=== PATIENT | female | born 1940 | race Caucasian/White ===

== ENCOUNTER → 2017-02-27 | Outpatient (CLI) | payer MEDICARE, OTHER ==
[~2017-02-27] MED LIST: CHOL200035 PO; Diovan PO; IBAN150T5 PO; LATA2.5D5 OU; MELO-195 PO; NORE1TAB PO; OMEP20TA2 PO; Omeprazole; TRM50T PO; VLS80C PO
--- NOTE | 2017-02-27 10:54 | Diagnostic Imaging Report ---
Transabdominal and transvaginal pelvic ultrasound. INDICATION: Vaginal discharge for three weeks. Abnormal uterine bleeding. FINDINGS: The uterus is 4.4 x 3.7 x 2.4 cm. The myometrium is heterogeneous with no discrete mass identified however. Uterine calcifications with shadowing are suggested which could be vascular or related to calcified fibroids. The endometrium is obscured by the uterine heterogeneity and the shadowing. Ovaries are not seen, presumably related to overlying bowel loops obscuring them and ovarian atrophy. IMPRESSION: Heterogeneous myometrium with calcifications which could be vascular or related to underlying poorly visualized fibroids. The endometrium is obscured. Dictated by: Dictated on workstation # [id number]
--- NOTE | 2017-03-02 14:44 | Diagnostic Imaging Report ---
Bilateral screening mammogram 2D views with tomosynthesis The current study was also evaluated with a Computer Aided Detection (CAD) system. INDICATION: Screening. No current complaints stated on the questionnaire. COMPARISON: 01/03/2016. FINDINGS: The breasts are composed of heterogeneously dense parenchyma which may decrease mammographic sensitivity. Benign-appearing calcifications are seen. Allowing for technique and positional differences, no suspicious change is seen. IMPRESSION: Dense breasts with no definite change. ACR BI-RADS Category 2: Benign findings. Result letter will be mailed to the patient. Note: At least 10% of breast cancer is not imaged by mammography. Dictated by: Dictated on workstation # [id number]
== END ==
LOC: RAD 09:56
PROVIDERS: ATTEND Family Medicine
DX: N85.8 Other specified noninflammatory disorders of uterus (principal); Z12.31 Encounter for screening mammogram for malignant neoplasm of breast
CPT/HCPCS: 76830; 76856; 77067

== ENCOUNTER → 2017-04-15 | Outpatient (CLI) | payer MEDICARE, OTHER ==
--- NOTE | 2017-04-15 18:05 | Diagnostic Imaging Report ---
INDICATION: Renal stones. FINDINGS: Supine view of the abdomen shows the bowel gas pattern to be within normal limits. There is a 3 mm calculus in the left kidney. No other stones are identified. There is no bony abnormality. IMPRESSION: There is a 3 mm calculus in the left kidney with no acute abnormality seen. There is no significant change from a prior study from 04/15/2016. Dictated by: Dictated on workstation # [id number]
== END ==
LOC: RAD 16:09
PROVIDERS: ATTEND Urology
DX: N20.0 Calculus of kidney (principal)
CPT/HCPCS: 74000

== ENCOUNTER → 2017-09-21 | Outpatient (CLI) | payer MEDICARE, OTHER ==
--- NOTE | 2017-09-21 13:25 | Diagnostic Imaging Report ---
PROCEDURE: CT head without contrast. TECHNIQUE: Multiple contiguous axial images were obtained through the brain without the use of intravenous contrast. INDICATION: Cephalgia and visual disturbances. The ventricles are normal in size, shape and position. There are no masses or hemorrhages. There are no extra-axial fluid collections. IMPRESSION: Negative CT head. Dictated by: Dictated on workstation # [id number]
== END ==
LOC: RAD 12:29
PROVIDERS: ATTEND Family Medicine
DX: R51 Headache (principal); H53.9 Unspecified visual disturbance
CPT/HCPCS: 70450

== ENCOUNTER → 2018-03-03 | Outpatient (CLI) | payer MEDICARE, OTHER ==
--- NOTE | 2018-03-03 09:06 | Diagnostic Imaging Report ---
Indication: Routine screening. Comparison is made with prior mammogram from 02/27/2017 and 01/03/2016. 2-D and 3-D bilateral screening mammography was performed with CAD. Both breasts are heterogeneously dense, limiting the sensitivity of mammography. Benign consultations in the left breast appear stable. No mass or malignant appearing microcalcifications are seen. The axillae are unremarkable. Impression: BI-RADS category 2 No mammographic features suspicious for malignancy are identified. ACR BI-RADS Category 2: Benign findings. Result letter will be mailed to the patient. Note: At least 10% of breast cancer is not imaged by mammography. Dictated by: Dictated on workstation # [id number]
== END ==
LOC: RAD 07:21
PROVIDERS: ATTEND Family Medicine
DX: Z12.31 Encounter for screening mammogram for malignant neoplasm of breast (principal)
CPT/HCPCS: 77067

== ENCOUNTER → 2018-06-09 | Outpatient (CLI) | payer MEDICARE, OTHER ==
--- NOTE | 2018-06-09 14:40 | Diagnostic Imaging Report ---
PROCEDURE: US Non-ob pelvis comp/trans. TECHNIQUE: Multiple realtime grayscale images were obtained of the pelvis in various projections endovaginally. Transabdominal imaging was also performed. INDICATION: Enlarged uterus. FINDINGS: Uterus measures 5.7 x 3.4 x 3.0 cm. There appears to be calcified fibroids present in the uterus, largest approximately 1.6 x 1.3 cm. The endometrium is not well visualized. Ovaries were not visualized. There is a large amount of bowel gas in the adnexa bilaterally. No free fluid is seen. IMPRESSION: Calcified uterine fibroids. No other significant abnormality is seen although the endometrium and ovaries are not well visualized. Dictated by: Dictated on workstation # [id number]
== END ==
LOC: RAD 10:41
PROVIDERS: ATTEND Obstetrics & Gynecology
DX: D25.9 Leiomyoma of uterus, unspecified (principal); N81.11 Cystocele, midline
CPT/HCPCS: 76830; 76856

== ENCOUNTER 2018-08-31 09:50 | Outpatient (CLI) | payer MEDICARE, OTHER ==
[~2018-08-31] VITALS: Ht 162.6 cm; Wt 63.0 kg
[2018-08-31] MEDS ORDERED: LOSA100T8 PO (10:11)
[2018-08-31] MEDS ORDERED: ASPI-586 PO (10:11)
[2018-08-31] MEDS ORDERED: OMEP20CA12 PO (10:11)
[2018-08-31] MEDS ORDERED: IBAN150T8 PO (10:11)
[2018-08-31] MEDS ORDERED: CHOL500044 PO (10:11)
[2018-08-31] MEDS ORDERED: ATOR10TA66 PO (10:11)
[2018-08-31 10:14] VITALS: BP 120/76
[2018-08-31 10:53] LABS: BASOPHILS % (AUTO) 0 % (0-10); EOSINOPHILS # (AUTO) 0.1 10^3/uL (0.0-0.3); EOSINOPHILS % (AUTO) 2 % (0-10); HEMATOCRIT 40 % (35-52); HEMOGLOBIN 12.8 G/DL (11.5-16.0); LYMPHOCYTES # (AUTO) 1.7 X 10^3 (1.0-4.0); LYMPHOCYTES % (AUTO) 29 % (12-44); MEAN CORPUSCULAR HEMOGLOBIN 31 PG (25-34); MEAN CORPUSCULAR HGB CONC 32 G/DL (32-36); MEAN CORPUSCULAR VOLUME 94 FL (80-99); MEAN PLATELET VOLUME 10.1 FL (7.4-10.4); MONOCYTES # (AUTO) 0.5 X 10^3 (0.0-1.0); MONOCYTES % (AUTO) 9 % (0-12); NEUTROPHILS # (AUTO) 3.4 X 10^3 (1.8-7.8); NEUTROPHILS % (AUTO) 60 % (42-75); PLATELET COUNT 280 10^3/uL (130-400); RED CELL DISTRIBUTION WIDTH 14.7 % (10.0-14.5); WHITE BLOOD COUNT 5.7 10^3/uL (4.3-11.0)
== END 2018-08-31 14:37 | disposition home or self-care (01) ==
LOC: PREOP 09:50
PROVIDERS: ATTEND Obstetrics & Gynecology
DX: Z01.812 Encounter for preprocedural laboratory examination (principal); Z11.2 Encounter for screening for other bacterial diseases; N81.10 Cystocele, unspecified; N39.3 Stress incontinence (female) (male)
CPT/HCPCS: 36415; 85025; 86850; 86900; 86901; 87081

== ENCOUNTER → 2019-06-16 | Outpatient (CLI) | payer MEDICARE, OTHER ==
[~2019-06-16] MED LIST changes: +ASPI-586 PO; +ATOR10TA66 PO; +CHOL500044 PO; +IBAN150T8 PO; +LOSA100T57 PO; +OMEP20CA13 PO
--- NOTE | 2019-06-16 09:08 | Diagnostic Imaging Report ---
INDICATION: Routine screening. Comparison is made with prior mammogram from 03/03/2018 and 02/27/2017. 2-D and 3-D bilateral screening mammography was performed with CAD. Both breasts are heterogeneously dense, limiting the sensitivity of mammography. Benign calcifications are again noted. Parenchymal pattern is stable. No mass or malignant appearing microcalcifications are seen. The axillae are unremarkable. IMPRESSION: BI-RADS Category 2 No mammographic features suspicious for malignancy are identified. ACR BI-RADS Category 2: Benign findings. Result letter will be mailed to the patient. Note: At least 10% of breast cancer is not imaged by mammography. Dictated by: Dictated on workstation # [id number]
== END ==
LOC: RAD 07:27
PROVIDERS: ATTEND Family Medicine
DX: Z12.31 Encounter for screening mammogram for malignant neoplasm of breast (principal)
CPT/HCPCS: 77067

== ENCOUNTER 2019-09-12 05:35 | Outpatient (CLI) | payer MEDICARE, OTHER ==
[~2019-09-12] VITALS: Ht 160 cm; Wt 61.8 kg
[~2019-09-12 05:35] MED LIST changes: +IBAN150T21 PO; -IBAN150T8 PO; +OMEP-280 PO; -OMEP20CA13 PO
[2019-09-12] MEDS ORDERED: CHOL200059 PO (10:28)
== END 2019-09-12 10:40 | disposition home or self-care (01) ==
LOC: PREOP 05:35
PROVIDERS: ATTEND Surgery
DX: Z01.818 Encounter for other preprocedural examination (principal)

== ENCOUNTER → 2019-09-30 | Outpatient (CLI) | payer MEDICARE, OTHER ==
[~2019-09-30] MED LIST changes: +CHOL200059 PO
== END ==
LOC: CARD 11:30
PROVIDERS: ATTEND Internal Medicine Cardiovascular Disease
DX: I10 Essential (primary) hypertension (principal); R07.9 Chest pain, unspecified; I65.29 Occlusion and stenosis of unspecified carotid artery; I08.2 Rheumatic disorders of both aortic and tricuspid valves
CPT/HCPCS: 93306

== ENCOUNTER → 2019-10-25 | Outpatient (CLI) | payer MEDICARE, OTHER ==
[~2019-10-25] MED LIST changes: -OMEP-280 PO; +OMEP20CA18 PO
--- NOTE | 2019-10-25 14:31 | Diagnostic Imaging Report ---
PROCEDURE: US Thyroid. TECHNIQUE: Multiple real-time grayscale images were obtained of the thyroid in various projections. INDICATION: Dysphasia and lump in the neck. Right lobe of thyroid measures 3.6 x 1.1 x 0.8 cm, and the left lobe measures 4.0 x 1.4 x 0.8 cm. Isthmus is 3 mm in thickness. There are several tiny nodules in both lobes of the thyroid gland. A cystic nodule in the inferior right lobe is approximately 4 mm in size. A cystic nodule mid left lobe is 3 mm in size. A mixed solid and cystic nodule lower pole left lobe is approximately 6 mm in size. No dominant thyroid mass is detected. No abnormality is seen at the area where the patient feels a lump. IMPRESSION: Bilateral subcentimeter thyroid nodules. No dominant thyroid mass is detected. No sonographic abnormality at the area of palpable abnormality is identified. Dictated by: Dictated on workstation # [id number]
== END ==
LOC: RAD 12:57
PROVIDERS: ATTEND Family Medicine
DX: E04.2 Nontoxic multinodular goiter (principal); R22.1 Localized swelling, mass and lump, neck
CPT/HCPCS: 76536

== ENCOUNTER 2019-11-03 05:31 | Outpatient (CLI) | payer MEDICARE, OTHER ==
[~2019-11-03] VITALS: Ht 162.6 cm; Wt 59.1 kg
[2019-11-04] MEDS ORDERED: PANT40TA2 PO (11:59)
== END 2019-11-03 08:44 | disposition home or self-care (01) ==
LOC: PREOP 05:31
PROVIDERS: ATTEND Surgery
DX: Z01.818 Encounter for other preprocedural examination (principal)

== ENCOUNTER 2020-12-11 | Outpatient (RCR) | payer MEDICARE, OTHER ==
[~2020-12-11] MED LIST changes: +PANT40TA2 PO
--- NOTE | 2020-12-11 12:28 | Diagnostic Imaging Report ---
Indication: Routine screening. Comparison is made with prior mammogram 06/16/2019 and 03/03/2018. 2-D and 3-D bilateral screening mammography was performed with CAD. Both breasts are heterogeneously dense, limiting the sensitivity of mammography. Benign parenchymal and vascular calcifications are noted bilaterally. No mass or malignant appearing microcalcifications are seen. Axillae are unremarkable. IMPRESSION: BI-RADS Category 2 No mammographic features suspicious for malignancy are identified. ACR BI-RADS Category 2: Benign findings. Result letter will be mailed to the patient. Note: At least 10% of breast cancer is not imaged by mammography. Dictated by: Dictated on workstation # [id number]
== END 2021-03-11 | disposition home or self-care (01) ==
LOC: CARD
PROVIDERS: ATTEND Family Medicine
DX: Z12.31 Encounter for screening mammogram for malignant neoplasm of breast (principal); R00.2 Palpitations; R42 Dizziness and giddiness
CPT/HCPCS: 77063; 77067

== ENCOUNTER → 2021-05-29 | Outpatient (CLI) | payer MEDICARE, OTHER ==
[~2021-05-29] VITALS: Ht 162 cm; Wt 57.0 kg
[~2021-05-29] MED LIST changes: +REGADENOSON 0.4 MG/5 ML SYR (LEXISCAN) IV ONE
[2021-05-29] MEDS: CATHETER FLUSH 10 ML SYR IV PRN ×2 (11:13→12:49)
[2021-05-29 12:46] VITALS: BP 117/72
--- NOTE | 2021-05-30 08:12 | Cardiology Stress Test Report ---
Stress Test Report Date of Procedure/Referring: Date of Procedure: May 29, 2021 PCP Tara Gross DO Admitting Physician Tara Gross DO Indications: CP Baseline Heart Rate: 64 Baseline Blood Pressure: Blood Pressure Systolic: 117 Blood Pressure Diastolic: 72 Baseline Vitals Vital Signs Date Time Temp Pulse Resp B/P (MAP) Pulse Ox O2 Delivery O2 Flow Rate FiO2 05/29/21 12:46 65 117/72 (87) Baseline EKG: Baseline EKG: NSR Summary After explaining the procedure to the patient, she signed a consent and then brought to the stress nuclear laboratory. Patient received 0.4 mg Lexiscan for stress test, ECG, heart rate and blood pressure were monitored continuously. Resting and stress dose of radio tracer were injected, imaging was acquired and reviewed in short axis, horizontal long axis and vertical long axis views. TID: 1.14 SSS: 2 SDS: 2 EF: 74 1. Patient tolerated Lexiscan well 2. Breast attenuation with no significant ischemia or infarction on SPECT images 3. Normal left ventricular size, normal contractility, ejection fraction 74% Copy Copies To 1: TARA GROSS BASHAR J MD May 30, 2021 08:12
== END ==
LOC: CARD 11:30
PROVIDERS: ATTEND Family Medicine
DX: R07.9 Chest pain, unspecified (principal)
CPT/HCPCS: 78452; 93017; A9502

== ENCOUNTER 2021-07-08 05:44 | Outpatient (RCR) | payer MEDICARE, OTHER ==
[~2021-07-08] VITALS: Ht 162.6 cm; Wt 57.8 kg
[~2021-07-08 05:44] MED LIST changes: +CYAN100081 PO; +MTP25TSR PO; -REGADENOSON 0.4 MG/5 ML SYR (LEXISCAN) IV ONE
== END 2021-07-08 08:56 | disposition home or self-care (01) ==
LOC: PREOP 05:44
PROVIDERS: ATTEND Surgery
DX: Z01.812 Encounter for preprocedural laboratory examination (principal); R13.10 Dysphagia, unspecified; Z20.822 Contact with and (suspected) exposure to COVID-19
CPT/HCPCS: 87635

== ENCOUNTER → 2021-07-10 | Day surgery (SDC) | payer MEDICARE, OTHER ==
[2021-07-10] VITALS (14 sets, daily range): BP systolic 131–158; BP diastolic 59–83
[~2021-07-10] VITALS: Ht 162.6 cm; Wt 57.8 kg
[~2021-07-10] MED LIST changes: +HURRICAINE EXT TUBE (BENZOCAINE) XX PRN; +LIDOCAINE JELLY 2% 6 ML SYRINGE MM PRN; +MIDAZOLAM 5 MG/5 ML (VERSED) VIAL IV ONE; +NS IV 500 ML 500 ML IV PRN; +NS IV 500 ML 500 ML ONE; +ONDANSETRON 4 MG (ZOFRAN) ORAL DISSOLVE TAB PO PRN; +ONDANSETRON 4 MG/2 ML (SDV) Z0FRAN IVP PRN; +fentaNYL INJ 100 MCG/2 ML AMP IVP ONE
--- NOTE | 2021-07-10 11:45 | Conscious Sedation/ASA ---
Conscious Sedation Pre-Proced Time 11:45 ASA Score 2 For ASA 3 and 4: Consider anesthesia and medical clearance. Also, for patients with a history of failed moderate sedation consider anesthesia. Airway Lungs Heart ASA score ASA 1: a normal healthy patient ASA 2: a patient with a mild systemic disease (mid diabetes, controlled hypertension, obesity ASA 3: a patient with a severe systemic disease that limits activity (angina, COPD, prior Myocardial infarction) ASA 4: a patient with an incapacitating disease that is a constant threat to life (CHF, renal failure) ASA 5: a moribund patient not expected to survive 24 hrs. (ruptured aneurysm) ASA 6: a declared brain- patient whose organs are being harvested. For emergent operations, add the letter E after the classification Mallampati Classification Grade 2 Sedation Plan Analgesia, Amnesia, Plan communicated to team members, Discussed options with patient/fam, Discussed risks with patient/fam The patient is an appropriate candidate to undergo the planned procedure, sedation, and anesthesia. The patient immediately re-assessed prior to indication. KRIS CAMPOS MD Jul 10, 2021 11:45
--- NOTE | 2021-07-10 11:46 | Progress Note-Pre Operative ---
Pre-Operative Progress Note H&P Reviewed The H&P was reviewed, patient examined and no changes noted. Date Seen by Provider: Jul 10, 2021 Time Seen by Provider: 11:45 Date H&P Reviewed: Jul 10, 2021 Time H&P Reviewed: 11:45 Pre-Operative Diagnosis: dysphagia/GERD KRIS CAMPOS MD Jul 10, 2021 11:46
--- NOTE | 2021-07-10 11:47 | Discharge Inst-Surgical ---
D/C Lap Instructions-ANDRES Follow Up Activity as tolerated High Fiber Diet 25g or more per day Avoid Alcohol, Caffeine, Spicy [place] and Acid foods. Drink 64 fluid oz or more of fluids per day. Symptoms to Report: Fever over 101 degree F, Nausea/Vomiting If any problems/questions: Contact your physician or go to Emergency Room KRIS CAMPOS MD Jul 10, 2021 11:47
--- NOTE | 2021-07-10 14:26 | Progress Note-Post Operative ---
Post-Operative Progess Note Surgeon (s)/Senior Front End Engineer (s) Surgeon KRIS CAMPOS MD Senior Front End Engineer: none Pre-Operative Diagnosis dysphagia/GERD Post-Operative Diagnosis reflux esophagitis(stage 2), dist esoph stricture, small HH(2cm), mild gastritis. Procedure & Operative Findings Date of Procedure 07/10/21 Procedure Performed/Findings EGD with bx and balloon dilatation. Anesthesia Type cs Estimated Blood Loss Estimated blood loss (mL): minimal Specimens/Packing Specimens Removed ge jxn, antrum KRIS CAMPOS MD Jul 10, 2021 14:26
--- NOTE | 2021-07-10 19:25 | OPERATIVE REPORT ---
DATE OF SERVICE: 07/10/2021 ATTENDING PRIMARY CARE PHYSICIAN: Tara Gross DO PREOPERATIVE DIAGNOSES: Dysphagia, gastroesophageal reflux disease. POSTOPERATIVE DIAGNOSES: Reflux esophagitis stage II, distal esophageal stricture, small hiatal hernia 2 cm in size. Mild to moderate gastritis. No distal obstructions. PROCEDURE: EGD with biopsy and balloon dilatation. SURGEON: Kris Campos MD ANESTHESIA: Conscious sedation. ESTIMATED BLOOD LOSS: Minimal. FINDINGS: Same as postoperative diagnoses. DISPOSITION: The patient tolerated the procedure well. INDICATIONS: The patient is a 80-year-old female known to us. Approximately two years ago, she presented with significant dysphagia and she underwent an EGD and was found to have a stricture and underwent a balloon dilatation. At this time, it was explained to her that she may need repeat dilatation; however, she states that COVID occurred. She reports a recurrence of dysphagia with epigastric pressure sensation after food bolus, which would eventually reduce or she would have regurgitation. She does not report any hematemesis, no coffee ground emesis. DESCRIPTION OF PROCEDURE: The patient was brought to the endoscopy suite, laid in left lateral decubitus position. After adequate IV pain and sedative medications and conscious sedation anesthesia, the mouthpiece was applied. The endoscope was placed in the mouth, visualizing the pharynx and hypopharyngeal region. Vocal cords, epiglottis and vallecula identified and appeared to be normal. The endoscope was then gently intubated into esophageal opening and esophagus insufflated. The endoscope was then advanced through the first, second and third portion of esophagus at the level of the GE junction, a reflux esophagitis stage II identified. A distal esophageal stricture was also identified. A biopsy was taken with forceps with visualization of good hemostasis. The endoscope was then advanced in the stomach and endoscope retroflexed, visualizing a small hiatal hernia approximately 2 cm in size. There was a mild to moderate gastritis. No formal ulcerations, polyps, or any neoplasms. A biopsy was taken of the antrum to rule out H. pylori with visualization of good hemostasis. The endoscope was then advanced to the pylorus and the first and second portion of the duodenum, which appeared normal with no distal obstructions. The balloon was then placed in the stomach and pulled back to the area of the stricture, then we proceeded in a gradual stepwise fashion from 2, 4 and then to 5 atmospheres of pressure where we met a moderate resistance or 19.5 mm in luminal diameter and left this in place for approximately 60 seconds. The balloon was then desufflated and removed with visualization of good hemostasis as well as no mucosal tears. The endoscope was then slowly withdrawn while taking a second look and suctioning of residual air with no additional findings. The patient tolerated the procedure well. We will recommend the necessary lifestyle and dietary accommodation including small and more frequent meals, avoiding to eating at night as well as head elevation while lying supine. She also needs to avoid caffeinated beverages, spicy, greasy and acidic foods and if she does have early reoccurrence of symptoms, we will have her return for continued graded dilatation. Job ID: [id number] DocumentID: [id number] Dictated Date: 07/10/2021 13:42:27 Director Payer Date: 07/10/2021 19:24:50 Dictated By: KRIS CAMPOS MD
== END ==
LOC: ENDO 11:39
PROVIDERS: ATTEND Surgery
DX: K22.2 Esophageal obstruction (principal); K21.00 Gastro-esophageal reflux disease with esophagitis, without bleeding; K44.9 Diaphragmatic hernia without obstruction or gangrene; K29.50 Unspecified chronic gastritis without bleeding; I10 Essential (primary) hypertension; E78.00 Pure hypercholesterolemia, unspecified; M81.0 Age-related osteoporosis without current pathological fracture; Z90.89 Acquired absence of other organs; Z79.899 Other long term (current) drug therapy; Z79.82 Long term (current) use of aspirin

== ENCOUNTER 2021-09-22 15:01 | Emergency (ER) | payer MEDICARE, OTHER ==
[~2021-09-22] VITALS: Ht 162 cm; Wt 55.0 kg
[~2021-09-22 15:01] MED LIST changes: -HURRICAINE EXT TUBE (BENZOCAINE) XX PRN; -LIDOCAINE JELLY 2% 6 ML SYRINGE MM PRN; -MIDAZOLAM 5 MG/5 ML (VERSED) VIAL IV ONE; -NS IV 500 ML 500 ML IV PRN; -NS IV 500 ML 500 ML ONE; -ONDANSETRON 4 MG (ZOFRAN) ORAL DISSOLVE TAB PO PRN; -ONDANSETRON 4 MG/2 ML (SDV) Z0FRAN IVP PRN; -fentaNYL INJ 100 MCG/2 ML AMP IVP ONE
[2021-09-22 15:23] LABS: BASOPHILS % (AUTO) 0 % (0-10); EOSINOPHILS # (AUTO) 0.1 10^3/uL (0.0-0.3); EOSINOPHILS % (AUTO) 0 % (0-10); HEMATOCRIT 40 % (35-52); HEMOGLOBIN 13.2 g/dL (11.5-16.0); LYMPHOCYTES # (AUTO) 1.5 10^3/uL (1.0-4.0); LYMPHOCYTES % (AUTO) 12 % (12-44); MEAN CORPUSCULAR HEMOGLOBIN 30 pg (25-34); MEAN CORPUSCULAR HGB CONC 33 g/dL (32-36); MEAN CORPUSCULAR VOLUME 93 fL (80-99); MEAN PLATELET VOLUME 9.6 fL (9.0-12.2); MONOCYTES # (AUTO) 0.6 10^3/uL (0.0-1.0); MONOCYTES % (AUTO) 5 % (0-12); NEUTROPHILS # (AUTO) 10.3 10^3/uL (1.8-7.8); NEUTROPHILS % (AUTO) 82 % (42-75); PLATELET COUNT 282 10^3/uL (130-400); WHITE BLOOD COUNT 12.6 10^3/uL (4.3-11.0)
[2021-09-22 15:31] LABS: ALBUMIN 4.1 GM/DL (3.2-4.5); POTASSIUM 3.9 MMOL/L (3.6-5.0)
[2021-09-22 15:32] LABS: CALCIUM 9.8 MG/DL (8.5-10.1)
[2021-09-22 15:33] LABS: TOTAL PROTEIN 6.7 GM/DL (6.4-8.2)
[2021-09-22 15:35] LABS: BILIRUBIN,TOTAL 1.8 MG/DL (0.1-1.0)
[2021-09-22 15:37] LABS: CREATININE SERUM 0.96 MG/DL (0.60-1.30)
[2021-09-22] MEDS ORDERED: FLEET ENEMA ADULT 1 EA BTL PR ONE (15:45)
--- NOTE | 2021-09-22 15:47 | ED GI ---
General Chief Complaint: Abdominal/GI Problems Stated Complaint: NO BM IN 1 WEEK Nursing Triage Note: PT CO OF CONSTIPATION AND ABD PAIN. PT STATES NO BM FOR 1 WEEK. DENIES FEVER OR NAUSEA Source of Information: Patient Exam Limitations: No Limitations History of Present Illness Date Seen by Provider: Sep 22, 2021 Time Seen by Provider: 15:45 Initial Comments to ER with lower abdominal cramping, rectal pain and absent bowel movements for about 5 days. This is unusual for her. No fevers no chills no nausea or vomiting. Tried some Metamucil at home without relief. Has not yet used anything else. Timing/Duration: 1-2 Days Severity/Quality: Cramping Radiation: No Radiation Activities at Onset: None Associated Symptoms: Nausea/Vomiting Allergies and Home Medications Allergies Coded Allergies: Cephalexin Monohydrate (Verified Allergy, Mild, GI UPSET/LOOSE STOOLS, 08/31/18) Patient Home Medication List Home Medication List Reviewed: Yes Aspirin (Aspir 81) 81 Mg Tablet., 81 MG PO DAILY, (Reported) Entered as Reported by: BOLIVAR JC on 08/31/18 1011 Atorvastatin Calcium (Atorvastatin Calcium) 10 Mg Tablet, 10 MG PO HS, (Reported) Entered as Reported by: BOLIVAR JC on 08/31/18 1011 Cholecalciferol (Vitamin D3) (Vitamin D-3) 2,000 Unit Tablet, 2,000 UNIT PO DAILY, (Reported) Entered as Reported by: MELIDA BROWN on 09/12/19 1028 Cyanocobalamin (Vitamin B-12) (Vitamin B-12) 1,000 Mcg/1 Ml Drops, 1,000 MCG PO MONTHLY, (Reported) Entered as Reported by: CAYLA WALLS on 07/03/21 1550 Ibandronate Sodium (Ibandronate Sodium) 150 Mg Tablet, 150 MG PO MONTHLY, (Reported) Entered as Reported by: BOLIVAR JC on 08/31/18 1011 Metoprolol Succinate (Metoprolol Succinate) 25 Mg Tab.er.24h, 25 MG PO DAILY, (Reported) Entered as Reported by: CAYLA WALLS on 07/03/21 1550 Pantoprazole Sodium (Protonix) 40 Mg Tablet., 40 MG PO DAILY Prescribed by: KRIS CAMPOS on 11/04/19 1159 Review of Systems Review of Systems Constitutional: see HPI EENTM: No Symptoms Reported Respiratory: No Symptoms Reported Cardiovascular: No Symptoms Reported Gastrointestinal: See HPI, Abdominal Pain, Nausea Genitourinary: No Symptoms Reported Musculoskeletal: no symptoms reported Skin: no symptoms reported, change in hair/nails Endocrine: No Symptoms Reported Past Mpawxqo-Rynkze-Rhzdsd Hx Patient Social History Tobacco Use?: No Substance use?: No Alcohol Use?: No Pt feels they are or have been: No Immunizations Up To Date Influenza Vaccine Up-to-Date: Yes; Up-to-Date First/Initial COVID19 Vaccinat: 2020 Second COVID19 Vaccination Wu: 2020 Third COVID19 Vaccination Date: 06/18/2021 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: Xyo Seasonal Allergies Seasonal Allergies: No Past Medical History Surgery/Hospitalization HX: HTN Surgeries: Yes (kidney stones, tonsils, CATARACT BILAT) Respiratory: No Cardiac: Yes High Cholesterol, Hypertension Neurological: No Reproductive Disorders: No Sexually Transmitted Disease: No HIV/AIDS: No Genitourinary: Yes (ALESSIA, "DROPPED BLADDER") Kidney Stones Gastrointestinal: Yes (dysphagia) Gastroesophageal Reflux, Chronic Constipation, Polyps Musculoskeletal: Yes (OSTEOPENIA) Endocrine: No HEENT: Yes (READING GLASSES) Loss of Vision: Bilateral Cancer: No Psychosocial: No Integumentary: No Blood Disorders: No Adverse Reaction/Blood Tranf: No (N/A) Physical Exam Vital Signs Vital Signs - First Documented 09/22/21 15:10 Temp 36.7 Pulse 81 Resp 18 B/P (MAP) 157/79 (105) Pulse Ox 96 Capillary Refill : Less Than 3 Seconds Height/Weight/BMI Height: 5'4.00" Weight: 139lbs. 0.0oz. 63.225229mv; 20.00 BMI Method:Stated General Appearance: WD/WN, no apparent distress HEENT: PERRL/EOMI, normal ENT inspection Respiratory: no respiratory distress, no accessory muscle use Gastrointestinal: normal bowel sounds, non tender, soft, other (Her abdomen is flat soft and nontender to palpation with normal bowel sounds. Specifically there is no left lower or suprapubic tenderness to concern me for diverticulitis. There are no peritoneal signs.) Extremities: normal range of motion, non-tender Neurologic/Psychiatric: alert, normal mood/affect, oriented x 3 Skin: normal color, warm/dry Progress/Results/Core Measures Results/Orders Lab Results Laboratory Tests Test 09/22/21 15:15 Range/Units White Blood Count 12.6 H 4.3-11.0 10^3/uL Red Blood Count 4.34 3.80-5.11 10^6/uL Hemoglobin 13.2 11.5-16.0 g/dL Hematocrit 40 35-52 % Mean Corpuscular Volume 93 80-99 fL Mean Corpuscular Hemoglobin 30 25-34 pg Mean Corpuscular Hemoglobin Concent 33 32-36 g/dL Red Cell Distribution Width 14.0 10.0-14.5 % Platelet Count 282 130-400 10^3/uL Mean Platelet Volume 9.6 9.0-12.2 fL Immature Granulocyte % (Auto) 0 % Neutrophils (%) (Auto) 82 H 42-75 % Lymphocytes (%) (Auto) 12 12-44 % Monocytes (%) (Auto) 5 0-12 % Eosinophils (%) (Auto) 0 0-10 % Basophils (%) (Auto) 0 0-10 % Neutrophils # (Auto) 10.3 H 1.8-7.8 10^3/uL Lymphocytes # (Auto) 1.5 1.0-4.0 10^3/uL Monocytes # (Auto) 0.6 0.0-1.0 10^3/uL Eosinophils # (Auto) 0.1 0.0-0.3 10^3/uL Basophils # (Auto) 0.0 0.0-0.1 10^3/uL Immature Granulocyte # (Auto) 0.1 0.0-0.1 10^3/uL Sodium Level 139 135-145 MMOL/L Potassium Level 3.9 3.6-5.0 MMOL/L Chloride Level 106 98-107 MMOL/L Carbon Dioxide Level 23 21-32 MMOL/L Anion Gap 10 5-14 MMOL/L Blood Urea Nitrogen 10 7-18 MG/DL Creatinine 0.96 0.60-1.30 MG/DL Estimat Glomerular Filtration Rate 60 BUN/Creatinine Ratio 10 Glucose Level 128 H 70-105 MG/DL Calcium Level 9.8 8.5-10.1 MG/DL Corrected Calcium 9.7 8.5-10.1 MG/DL Total Bilirubin 1.8 H 0.1-1.0 MG/DL Aspartate Amino Transf (AST/SGOT) 16 5-34 U/L Alanine Aminotransferase (ALT/SGPT) 18 0-55 U/L Alkaline Phosphatase 63 40-136 U/L Total Protein 6.7 6.4-8.2 GM/DL Albumin 4.1 3.2-4.5 GM/DL My Orders Orders - ROXI KITCHEN APRN Cbc With Automated Diff (09/22/21 15:19) Comprehensive Metabolic Panel (09/22/21 15:19) Acute Abd Series (09/22/21 15:19) Na Phos/Na Biphos Enema (Fleet Enema Javier (09/22/21 15:45) Medications Given in ED Current Medications Medications Dose Ordered Sig/Kris Route Start Time Stop Time Status Last Admin Dose Admin Sodium Biphosphate/ Sodium Phosphate 1 ea ONCE ONCE [place] 09/22/21 15:45 09/22/21 15:46 DC 09/22/21 15:56 1 EA Vital Signs/I&O 09/22/21 15:10 Temp 36.7 Pulse 81 Resp 18 B/P (MAP) 157/79 (105) Pulse Ox 96 Blood Pressure Mean: 105 Departure Communication (Admissions) 1601-upon reviewing labs did a digital rectal exam. at the bedside. There is a fecal impaction of which a large amount was removed digitally. She was then given a fleets enema. NAME: BARTOLO GROSS [facility] REC#: [id number] PT STATUS: REG ER : 1940 PHYSICIAN: ROXI KITCHEN APRN ADMIT DATE: 09/22/21/ER Draft Date of Exam:09/22/21 ACUTE ABD SERIES EXAMINATION: Abdominal radiographs, acute series. DATE: September 22, 2021. CLINICAL INDICATION: 81-year-old female, constipation. Abdominal pain. No bowel movement for one week COMPARISON: April 15, 2017. COMMENTS: Heart size and mediastinal contours are unremarkable. There is no identified pneumothorax. There is no large pleural effusion. There is no identified focal airspace consolidation. There is no identified free intraperitoneal air. There is a large volume colonic stool. There are no abnormally distended gas-filled segments of bowel. There is no identified pneumatosis or portal venous gas. IMPRESSION: 1. Large volume colonic stool. 2. No evidence to suggest bowel obstruction. 3. No identified acute cardiopulmonary abnormality. Dictated on workstation # [id number] Dict: 09/22/21 1541 Trans: 09/22/21 1548 PJ [id number] Interpreted by: NEETU ROUSE MD Electronically signed by: Griffin Primary Impression: Constipation Disposition: 01 HOME, SELF-CARE Condition: Stable Departure-Patient Inst. Decision time for Depature: 16:02 Referrals: VAIBHAV DELEON DO (PCP/Family) Primary Care Physician Patient Instructions: Fecal Impaction (DC) Add. Discharge Instructions: 1. Use 1 it of MiraLAX in a glass of water twice a day for the next 5 days. Return to ER for any concerns. All discharge instructions reviewed with patient and/or family. Voiced understanding. ROXI KITCHEN APRN Sep 22, 2021 15:47
[2021-09-22 16:13] VITALS: BP 157/79
== END 2021-09-22 16:17 | disposition home or self-care (01) ==
LOC: EDUNIT# 15:01 → ER 15:06
DX: K59.00 Constipation, unspecified (principal); I10 Essential (primary) hypertension; K21.9 Gastro-esophageal reflux disease without esophagitis; E78.00 Pure hypercholesterolemia, unspecified; Z79.82 Long term (current) use of aspirin; Z79.899 Other long term (current) drug therapy
CPT/HCPCS: 36415; 74022; 80053; 85025

== ENCOUNTER → 2021-12-17 | Outpatient (CLI) | payer MEDICARE, OTHER ==
--- NOTE | 2021-12-17 13:55 | Diagnostic Imaging Report ---
Indication: Routine screening. Comparison is made with prior mammogram from 12/11/2020 and 06/16/2019. 2-D and 3-D bilateral screening mammography was performed with CAD. CAD is utilized. The current study was also evaluated with a Computer Aided Detection (CAD) system. Both breasts are heterogeneously dense, limiting the sensitivity of mammography. There are benign parenchymal and vascular calcifications bilaterally. No mass or malignant-appearing microcalcifications are seen. Axillae are unremarkable. IMPRESSION: BI-RADS Category 2 No mammographic features suspicious for malignancy are identified. ACR BI-RADS Category 2: Benign findings. Result letter will be mailed to the patient. Note: At least 10% of breast cancer is not imaged by mammography. Dictated by: Dictated on workstation # [id number]
== END ==
LOC: RAD 08:45
PROVIDERS: ATTEND Family Medicine
DX: Z12.31 Encounter for screening mammogram for malignant neoplasm of breast (principal)
CPT/HCPCS: 77063; 77067

== ENCOUNTER → 2022-02-12 | Outpatient (CLI) | payer MEDICARE, OTHER ==
[~2022-02-12] VITALS: Ht 162.6 cm; Wt 53.5 kg
[~2022-02-12] MED LIST changes: +CHOL500050 PO; +METO50TA7 PO
== END | disposition home or self-care (01) ==
LOC: PREOP 13:38
PROVIDERS: ATTEND Surgery
DX: Z01.818 Encounter for other preprocedural examination (principal)

== ENCOUNTER 2022-02-21 08:51 | Day surgery (SDC) | payer MEDICARE, OTHER ==
[~2022-02-21] VITALS: Ht 162 cm; Wt 53.5 kg
[2022-02-21] VITALS (7 sets, daily range): BP systolic 86–150; BP diastolic 51–71
[2022-02-21] MEDS ORDERED: LACTATED RINGERS 1,000 ML IV STA (08:59)
[2022-02-21] MEDS ORDERED: LIDOCAINE JELLY 2% 6 ML SYRINGE MM PRN (09:00)
[2022-02-21] MEDS ORDERED: HURRICAINE EXT TUBE (BENZOCAINE) XX PRN (09:00)
--- NOTE | 2022-02-21 09:48 | Progress Note-Pre Operative ---
Pre-Operative Progress Note H&P Reviewed The H&P was reviewed, patient examined and no changes noted. Date Seen by Provider: Feb 21, 2022 Time Seen by Provider: :30 Date H&P Reviewed: Feb 21, 2022 Time H&P Reviewed: 09:30 Pre-Operative Diagnosis: dysphagia/GERD KRIS CAMPOS MD Feb 21, 2022 09:48
--- NOTE | 2022-02-21 09:49 | Discharge Inst-Surgical ---
D/C Lap Instructions-ANDRES Follow Up Activity as tolerated High Fiber Diet 25g or more per day Avoid Alcohol, Caffeine, Spicy [place] and Acid foods. Drink 64 fluid oz or more of fluids per day. Symptoms to Report: Fever over 101 degree F, Nausea/Vomiting If any problems/questions: Contact your physician or go to Emergency Room KRIS CAMPOS MD Feb 21, 2022 09:49
[2022-02-21] MEDS ORDERED: PROPOFOL INJECTION 50 ML IV ONE (09:58)
[2022-02-21] MEDS ORDERED: MIDAZOLAM 2 MG/2 ML (VERSED) VIAL ONE (09:58)
[2022-02-21] MEDS ORDERED: ONDANSETRON 4 MG (ZOFRAN) ORAL DISSOLVE TAB PO PRN (10:00)
[2022-02-21] MEDS ORDERED: ONDANSETRON 4 MG/2 ML (SDV) Z0FRAN IVP PRN (10:00)
--- NOTE | 2022-02-21 10:36 | Anesthesia-General Post-Op ---
MAC Patient Condition Mental Status/LOC: Same as Preop Cardiovascular: Satisfactory Nausea/Vomiting: Absent Respiratory: Satisfactory Pain: Controlled Complications: Absent Post Op Complications Complications None Follow Up Care/Instructions Patient Instructions None needed. Anesthesiology Discharge Order Discharge Order Patient is doing well, no complaints, stable vital signs, no apparent adverse anesthesia problems. No complications reported per nursing. ARELY MERCHANT CRNA Feb 21, 2022 10:36
--- NOTE | 2022-02-21 20:07 | OPERATIVE REPORT ---
DATE OF SERVICE: 02/21/2022 ATTENDING PRIMARY CARE PHYSICIAN: Tara Gross DO. PREOPERATIVE DIAGNOSES: Gastroesophageal reflux disease, dysphagia and history of esophageal stricture. POSTOPERATIVE DIAGNOSES: Reflux esophagitis, Luquillo grade C; mild distal esophageal stricture, small hiatal hernia 1.5 cm in size, mild to moderate gastritis. No distal obstructions. PROCEDURE: EGD with biopsy and balloon dilatation. SURGEON: Kris Campos MD. ANESTHESIA: Monitored anesthesia care. ESTIMATED BLOOD LOSS: Minimal. FINDINGS: Reflux esophagitis, Luquillo grade C; mild distal esophageal stricture, small hiatal hernia 1.5 cm in size, mild to moderate gastritis. No distal obstructions. DISPOSITION: The patient tolerated the procedure well. INDICATIONS: The patient is a 81-year-old female known to us. In the past 2 to 3 years, she has developed significant dysphagia for specific types of foods and did undergo an EGD and was found to have a stricture and underwent a balloon dilatation. It was explained to her that she needed repeat dilatations. However, COVID occurred and she was not able to follow through with the procedure. We had done another balloon dilatation on 07/10/2021 and we were able to dilate to 19.5 mm. She reports that she does have some intermittent episodes of dysphagia. DESCRIPTION OF PROCEDURE: The patient was brought to the endoscopy suite, laid in the left lateral decubitus position. After adequate IV pain and sedative medications and monitored anesthesia care, the mouthpiece was applied. The endoscope was placed through the mouth, visualizing the pharynx and hypopharyngeal region. Vocal cords, epiglottis and vallecula identified and appeared to be normal. The endoscope was then gently intubated the esophageal opening and esophagus insufflated. The endoscope was then advanced through the first, second and third portion of esophagus at the level of the GE junction, a reflux esophagitis, Luquillo grade C identified with a mild distal esophageal stricture. A biopsy was taken with forceps with visualization of good hemostasis. The endoscope was then advanced through the stomach and endoscope retroflexed, visualizing a small hiatal hernia approximately 1.5 cm in size. There was a mild to moderate gastritis. No formal ulcerations, polyps, or any neoplasms. A biopsy was taken of the antrum to rule out H. pylori with visualization of good hemostasis. The endoscope was then advanced to the pylorus and the first and second portion of the duodenum, which appeared normal with no distal obstructions. The balloon was then placed into the stomach and pulled back to the area of stricture. We then proceeded integrated stepwise fashion from 2, 4, then eventually 6 atmospheres of pressure or 20 mm in luminal diameter and moderate resistance and left this in place for approximately 60 seconds. The balloon was then desufflated and removed with visualization of good hemostasis and no mucosal tears. The endoscope was then slowly withdrawn while taking a second look and suctioning of residual air with no additional findings. The patient tolerated the procedure well. We will recommend continued medical management with small and more frequent meals, avoiding eating at night as well as head elevation while lying supine. We will also recommend avoidance of caffeinated beverages, spicy, greasy and acidic foods. We want her to also continue with her current regimen of Protonix 40 mg daily. At this point, if she does have recurrent symptoms, we will have her follow up and proceed with repeat dilatations. Job ID: [id number] DocumentID: [id number] Dictated Date: 02/21/2022 10:29:59 [employer] Date: 02/21/2022 20:06:35 Dictated By: KRIS CAMPOS MD
== END 2022-02-21 11:25 | disposition home or self-care (01) ==
LOC: ENDO 08:51
PROVIDERS: ATTEND Surgery
DX: K21.00 Gastro-esophageal reflux disease with esophagitis, without bleeding (principal); K22.2 Esophageal obstruction; K44.9 Diaphragmatic hernia without obstruction or gangrene; K29.70 Gastritis, unspecified, without bleeding; Z79.899 Other long term (current) drug therapy; Z79.82 Long term (current) use of aspirin; Z88.1 Allergy status to other antibiotic agents
CPT/HCPCS: 88305

== ENCOUNTER 2022-03-02 19:58 | Emergency (ER) | payer MEDICARE, OTHER ==
[2022-03-02 20:07] VITALS: BP 157/78
--- NOTE | 2022-03-02 20:18 | ED Fall/Injury ---
General Stated Complaint: FALL LEFT TOES/RIGHT HIP PAIN Source: patient (PT IS LIMITED HISTORIAN ABOUT PMH), spouse History of Present Illness Date Seen by Provider: Mar 02, 2022 Time Seen by Provider: 20:06 Initial Comments PT ARRIVES VIA POV FROM HOME WITH , WALKS IN WITH A WALKER PT STATES AROUND 1600 TODAY, SHE GOT UP FROM THE COUCH, AND HER HOUSE SLIPPER GOT CAUGHT AND HER LEFT FOOT AND TOES BENT UNDER, AND HER LEFT FOOT TWISTED AND SHE FELL, AND LANDED ON HER RIGHT HIP C/O PAIN TO HER LEFT TOES AND FOOT AND RIGHT HIP NO PARESTHESIAS OR MOTOR DEFICITS DID NOT HIT HEAD AND NO LOSS OF CONSCIOUSNESS NO NECK OR BACK PAIN NO ARM PAIN NO CHEST OR ABDOMINAL PAIN HAS NOT TAKEN ANYTHING FOR PAIN PT IS ON 81 MG ASPIRIN, NO OTHER BLOOD THINNERS NO PRIOR INJURIES OR SURGERIES TO LEFT FOOT/ANKLE OR RIGHT HIP PCP: DR. DELEON Allergies and Home Medications Allergies Coded Allergies: Cephalexin Monohydrate (Verified Allergy, Mild, GI UPSET/LOOSE STOOLS, 08/31/18) Patient Home Medication List Home Medication List Reviewed: Yes Aspirin (Aspir 81) 81 Mg Tablet.dr, 81 MG PO DAILY, (Reported) Entered as Reported by: BOLIVAR JC on 08/31/18 1011 Atorvastatin Calcium (Atorvastatin Calcium) 10 Mg Tablet, 10 MG PO HS, (Reporte d) Entered as Reported by: BOLIVAR JC on 08/31/18 1011 Cholecalciferol (Vitamin D3) (Vitamin D3) 125 Mcg (5000 Unit) Capsule, 125 MCG PO DAILY, (Reported) Entered as Reported by: CAYLA WALLS on 02/12/22 1403 Cyanocobalamin (Vitamin B-12) (Vitamin B-12) 1,000 Mcg/1 Ml Drops, 1,000 MCG PO MONTHLY, (Reported) Entered as Reported by: CAYLA WALLS on 07/03/21 1550 Ibandronate Sodium (Ibandronate Sodium) 150 Mg Tablet, 150 MG PO MONTHLY, (Reported) Entered as Reported by: BOLIVAR JC on 08/31/18 1011 Metoprolol Succinate (Metoprolol Succinate) 50 Mg Tab.er.24h, 50 MG PO DAILY, (Reported) Entered as Reported by: CAYLA WALLS on 02/12/22 1403 Pantoprazole Sodium (Protonix) 40 Mg Tablet.dr, 40 MG PO DAILY Prescribed by: KRIS CAMPOS on 11/04/19 1159 Review of Systems Review of Systems Constitutional: no symptoms reported Respiratory: no symptoms reported Cardiovascular: no symptoms reported Gastrointestinal: no symptoms reported Genitourinary: no symptoms reported Musculoskeletal: see HPI Skin: no symptoms reported Psychiatric/Neurological: No Symptoms Reported Past Ymienyg-Ebaqlg-Ovsdke Hx Patient Social History Tobacco Use?: No Smoking Status: Never a Smoker Smokeless Tobacco Frequency: Never a User Use of E-Cig and/or Vaping Alejandro: Never a User Substance use?: No Alcohol Use?: No Immunizations Up To Date First/Initial COVID19 Vaccinat: 2020 Second COVID19 Vaccination Wu: 2020 Third COVID19 Vaccination Date: 2021 Seasonal Allergies Seasonal Allergies: No Past Medical History Surgery/Hospitalization HX: HTN Surgeries: Yes (BILATERAL CATARACTS; KIDNEY STONE REMOVALS; EGD) Adenoidectomy, Eye Surgery, Renal, Tonsillectomy Respiratory: No Currently Using CPAP: No Cardiac: Yes High Cholesterol, Hypertension Neurological: No Reproductive Disorders: No TUBE MAN History: Menopausal Sexually Transmitted Disease: No HIV/AIDS: No Genitourinary: Yes (ALESSIA, "DROPPED BLADDER") Kidney Stones Gastrointestinal: Yes (DYSPHAGIA) Gastroesophageal Reflux, Chronic Constipation, Polyps Musculoskeletal: Yes (OSTEOPENIA) Endocrine: No HEENT: Yes (READING GLASSES;BILAT CATARACT SURGERY; T&A) Cataract, Tonsilitis Loss of Vision: Bilateral Cancer: No Psychosocial: No Integumentary: No Blood Disorders: No Adverse Reaction/Blood Tranf: No (N/A) Physical Exam Vital Signs Vital Signs - First Documented 03/02/22 20:07 Temp 37.2 Pulse 73 Resp 18 B/P (MAP) 157/78 (104) Pulse Ox 98 Capillary Refill : Height, Weight, BMI Height: 5'4.00" Weight: 139lbs. 0.0oz. [id number]; 20.38 BMI Method:Stated General Appearance: WD/WN, no apparent distress, thin, other (WELL GROOMED, WALKS IN WITH WALKER WITH SLIGHT LIMP ON LEFT FOOT) HEENT: PERRL/EOMI Neck: non-tender, full range of motion, supple, normal inspection Cardiovascular: normal peripheral pulses, regular rate, rhythm, no murmur Respiratory: chest non-tender, normal breath sounds, no respiratory distress, no accessory muscle use Peripheral Pulses: 2+ Dorsalis Pedis (R), 2+ Left Dors-Pedis (L), 2+ Radial P ulses (R), 2+ Radial Pulses (L) Gastrointestinal: non tender, soft Back: normal inspection, no CVA tenderness, no vertebral tenderness Extremities: normal capillary refill, other (MILD TENDERNESS TO RIGHT HIP. TENDERNESS AND MILD SWELLING TO LEFT FOOT AND ANKLE. NO BRUISING OR WOUNDS. 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, no motor/sensory deficits, alert, normal mood/affect, oriented x 3 Skin: normal color, warm/dry; No ecchymosis Procedures/Interventions Splinting and Joint Reduction : Gerhard wrap: Yes Immobilizers: Step Light Walker s/m/lg Progress/Results/Core Measures Results/Orders My Orders Orders - AMERICO JUAREZ K DO Foot, Left, 3 Views (03/02/22 20:12) Ankle, Left, 3 Views (03/02/22 20:12) Pelvis With Right Hip 2-3views (03/02/22 20:12) Gerhard Bandage (03/02/22 21:24) Steplite (03/02/22 21:24) Vital Signs/I&O 03/02/22 20:07 Temp 37.2 Pulse 73 Resp 18 B/P (MAP) 157/78 (104) Pulse Ox 98 Progress Progress Note : Progress Note PT WAS ABLE TO AMBULATE WITH WALKING BOOT AND HER WALKER WELL, AND FEELS COMFORTABLE GOING HOME PT STATES HER HIP DOES NOT HURT ANYMORE Diagnostic Imaging Comments XRAYS--PER RADIOLOGIST REPORTS AT 2118 PELVIS/RIGHT HIP-- FINDINGS: AP pelvis and two-view right hip shows no fracture, dislocation or acute articular irregularity. 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 No articular collapse. No evidence for necrosis. No symphyseal or SI joint diastasis. There is an elevated colonic fecal load with no displacement of the stool containing rectum. IMPRESSION: Advanced arthritis to the bilateral hips but no fracture or dislocation radiographically apparent. LEFT ANKLE-- FINDINGS: Three views of the left ankle were performed. There is no widening of the mortise. The articular surface is smooth. The medial, lateral and posterior malleolar appear nonacute. The calcaneus unremarkable. There are degenerative changes to the tibiotalar joints as well as the posterior subtalar joint. No fracture to the ankle, itself, identified. There is however questionable irregularities at the base of the 5th metatarsal, correlate with the level of pain. Its integrity could not be confirmed. If warranted, foot radiographs may be of benefit if this is symptomatic. IMPRESSION: Ankle mortise appears intact. Indeterminate irregularities at the base of the 5th metatarsal, correlate with the level of pain. If warranted, dedicated foot radiographs would be useful to better characterize that level. LEFT FOOT-- FINDINGS: Three views of the left ankle were performed. There is no widening of the mortise. The articular surface is smooth. The medial, lateral and posterior malleolar appear nonacute. The calcaneus unremarkable. There are degenerative changes to the tibiotalar joints as well as the posterior subtalar joint. No fracture to the ankle, itself, identified. There is however questionable irregularities at the base of the 5th metatarsal, correlate with the level of pain. Its integrity could not be confirmed. If warranted, foot radiographs may be of benefit if this is symptomatic. IMPRESSION: Ankle mortise appears intact. Indeterminate irregularities at the base of the 5th metatarsal, correlate with the level of pain. If warranted, dedicated foot radiographs would be useful to better characterize that level. Reviewed: Reviewed by Me Departure Impression Primary Impression: Fall from standing Additional Impressions: Sprain of left foot Contusion of right hip Disposition: 01 HOME, SELF-CARE Condition: Stable Departure-Patient Inst. Decision time for Depature: 21:20 Referrals: VAIBHAV DELEON DO (PCP/Family) Primary Care Physician Patient Instructions: Foot Sprain ED, How to Use an Elastic Bandage, Preventing Falls ED, Using Cold for Pain, Walking Boot Add. Discharge Instructions: ICE TO AREA AT 20 MINUTE INTERVALS ELEVATE FOOT MUCH POSSIBLE GERHARD WRAP AND WALKING BOOT NEEDED FOR PAIN AND SWELLING TYLENOL AND MOTRIN NEEDED FOR PAIN USE YOUR WALKER AT ALL TIMES FOLLOW UP WITH DR. DELEON IN 5-7 DAYS FOR FURTHER CARE--CALL IN THE MORNING TO SCHEDULE APPOINTMENT AMERICO JUAREZ DO Mar 02, 2022 20:18
--- NOTE | 2022-03-02 20:36 | Diagnostic Imaging Report ---
INDICATION: Fall, pain. FINDINGS: Three views of the left ankle were performed. There is no widening of the mortise. The articular surface is smooth. The medial, lateral and posterior malleolar appear nonacute. The calcaneus unremarkable. There are degenerative changes to the tibiotalar joints as well as the posterior subtalar joint. No fracture to the ankle, itself, identified. There is however questionable irregularities at the base of the 5th metatarsal, correlate with the level of pain. Its integrity could not be confirmed. If warranted, foot radiographs may be of benefit if this is symptomatic. IMPRESSION: Ankle mortise appears intact. Indeterminate irregularities at the base of the 5th metatarsal, correlate with the level of pain. If warranted, dedicated foot radiographs would be useful to better characterize that level. Dictated by: Dictated on workstation # [id number]
--- NOTE | 2022-03-02 20:37 | Diagnostic Imaging Report ---
INDICATION: Fall with pain. FINDINGS: There is likely old healed avulsion deformity to the base of the 5th metatarsal as well as some secondary arthritis to the 5th tarsometatarsal joint. No overlying soft tissue swelling and an acute fracture is not identified. Remaining hind, midfoot and forefoot structures appear intact. IMPRESSION: No acute appearing abnormality. Dictated by: Dictated on workstation # [id number]
--- NOTE | 2022-03-02 20:38 | Diagnostic Imaging Report ---
INDICATION: Fall with pain. FINDINGS: AP pelvis and two-view right hip shows no fracture, dislocation or acute articular irregularity. 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 No articular collapse. No evidence for necrosis. No symphyseal or SI joint diastasis. There is an elevated colonic fecal load with no displacement of the stool containing rectum. IMPRESSION: Advanced arthritis to the bilateral hips but no fracture or dislocation radiographically apparent. Dictated by: Dictated on workstation # [id number]
== END 2022-03-02 21:43 | disposition home or self-care (01) ==
LOC: EDUNIT# 19:58 → ER 20:01
DX: S93.602A Unspecified sprain of left foot, initial encounter (principal); S70.01XA Contusion of right hip, initial encounter; W18.09XA Striking against other object with subsequent fall, initial encounter; X50.1XXA Overexertion from prolonged static or awkward postures, initial encounter
CPT/HCPCS: 73610; 73630; 99281

== ENCOUNTER → 2022-07-01 | Outpatient (CLI) | payer MEDICARE, OTHER ==
--- NOTE | 2022-07-01 11:37 | Diagnostic Imaging Report ---
PROCEDURE: US Thyroid. TECHNIQUE: Multiple real-time grayscale images were obtained of the thyroid in various projections. INDICATION: Goiter, thyroid nodules COMPARISON: 10/25/2019 FINDINGS: The right lobe of the thyroid gland measures 3.2 x 0.7 x 1.2 cm and is mildly heterogeneous. An ovoid 0.4 x 0.2 x 0.1 cm cystic nodule with circumscribed margins is again noted within the posterior aspect of the inferior pole the right thyroid lobe, decreased in size since the prior examination. No new right thyroid nodules. The left lobe of thyroid gland measures 3.3 x 0.8 x 1.4 cm demonstrates a mildly heterogeneous echotexture. A spongiform 0.6 x 0.3 cm isoechoic nodule within the mid left thyroid lobe is again identified and not significantly changed since the prior examination 2 years prior. Additional 0.5 x 0.3 cm spongiform hypoechoic nodule within the inferior pole of the left thyroid lobe is relatively stable. No new left thyroid nodule. The isthmus is unremarkable. IMPRESSION: Bilateral subcentimeter thyroid nodules are again identified and not slightly changed since prior examination over 2 years prior without new thyroid nodule. The thyroid gland is not enlarged. Dictated by: Dictated on workstation # [id number]
== END ==
LOC: RAD 09:02
PROVIDERS: ATTEND Otolaryngology Otolaryngology/Facial Plastic Surgery
DX: E04.9 Nontoxic goiter, unspecified (principal)
CPT/HCPCS: 36415; 76536; 84443; 85652; 86431

== ENCOUNTER → 2022-09-19 | Outpatient (CLI) | payer MEDICARE, OTHER | LOC: CARD 12:47 | PROVIDERS: ATTEND Internal Medicine Cardiovascular Disease | DX: I10 Essential (primary) hypertension (principal) | CPT/HCPCS: 93306 ==

== ENCOUNTER → 2023-01-08 | Outpatient (CLI) | payer MEDICARE, OTHER ==
--- NOTE | 2023-01-08 12:05 | Diagnostic Imaging Report ---
INDICATION: Routine screening. COMPARISON: 12/17/2021 and 12/11/2020. TECHNIQUE: 2D and 3D bilateral screening mammography was performed with CAD. FINDINGS: Both breasts are heterogeneously dense, limiting the sensitivity of mammography. Benign parenchymal and vascular calcifications are noted bilaterally. No mass or malignant-appearing microcalcifications are seen. The axillae are unremarkable. IMPRESSION: No mammographic features suspicious for malignancy are identified. ACR BI-RADS Category 2: Benign findings. Result letter will be mailed to the patient. Note: At least 10% of breast cancer is not imaged by mammography. Dictated by: Dictated on workstation # [id number]
== END ==
LOC: RAD 07:31
PROVIDERS: ATTEND Family Medicine
DX: Z12.31 Encounter for screening mammogram for malignant neoplasm of breast (principal)
CPT/HCPCS: 77063; 77067

== ENCOUNTER → 2023-03-16 | Outpatient (RCR) | payer MEDICARE, OTHER ==
[~2023-03-16] MED LIST changes: -LOSA100T57 PO; +LOSA100T58 PO
== END | disposition home or self-care (01) ==
PROVIDERS: ATTEND Family Medicine
DX: M25.551 Pain in right hip (principal); I10 Essential (primary) hypertension; Z87.828 Personal history of other (healed) physical injury and trauma

== ENCOUNTER 2023-04-02 10:23 | Outpatient (RCR) | payer MEDICARE, OTHER | END 2023-04-02 11:25 | disposition home or self-care (01) | PROVIDERS: ATTEND Family Medicine | DX: M25.551 Pain in right hip (principal); Z87.828 Personal history of other (healed) physical injury and trauma ==

== ENCOUNTER → 2023-04-15 | Outpatient (CLI) | payer MEDICARE, OTHER ==
[~2023-04-15] MED LIST changes: +CATHETER FLUSH 10 ML SYR IV PRN; +HOLD METFORMIN - RECEIVED CONTRAST 20 ML VIAL IV SCH; +IOHEXOL 350 MG/ML 100 ML (OMNIPAQUE 350) VIAL IV ONE; +NS 100 ML (IVPB) BAG IV ONE
--- NOTE | 2023-04-15 11:02 | Diagnostic Imaging Report ---
PROCEDURE: CT neck soft tissue with contrast. TECHNIQUE: Multiple contiguous axial images were obtained through the neck after the administration of contrast. Auto Exposure Controls were utilized during the CT exam to meet ALARA standards for radiation dose reduction. INDICATION: Neck lump. COMPARISON: Thyroid ultrasound 07/01/2022. FINDINGS: Scattered subcentimeter lymph nodes are seen in the neck. None are pathologically enlarged or abnormally enhancing. The parotid, submandibular, and thyroid glands are normal. The muscles of the neck are normal. Vessels of the neck demonstrate normal course, caliber, and enhancement. The visualized aerodigestive tract is normal. The visualized posterior fossa and brain is unremarkable. The visualized orbits and paranasal sinuses are normal. Moderate multilevel degenerative changes of the cervical spine. The visualized lung apices are clear. IMPRESSION: No neck mass or lymphadenopathy. Dictated by: Dictated on workstation # [id number]
== END ==
LOC: RAD 09:34
PROVIDERS: ATTEND Otolaryngology Otolaryngology/Facial Plastic Surgery
DX: R22.1 Localized swelling, mass and lump, neck (principal); R09.89 Other specified symptoms and signs involving the circulatory and respiratory systems
CPT/HCPCS: 70491

== ENCOUNTER → 2023-04-16 | Outpatient (CLI) | payer MEDICARE, OTHER ==
[~2023-04-16] MED LIST changes: -CATHETER FLUSH 10 ML SYR IV PRN; -HOLD METFORMIN - RECEIVED CONTRAST 20 ML VIAL IV SCH; -IOHEXOL 350 MG/ML 100 ML (OMNIPAQUE 350) VIAL IV ONE; -NS 100 ML (IVPB) BAG IV ONE
--- NOTE | 2023-04-16 14:35 | Diagnostic Imaging Report ---
EXAMINATION: Right hip radiographs, 2 views. COMPARISON: None. HISTORY: 82-year-old female, right hip pain. FINDINGS: The right hip is not dislocated. There is mild joint space loss of the right hip with osteophyte formation. There is no identified acute fracture. There is no cortical or aggressive bone destruction. IMPRESSION: 1. Mild osteoarthritis of the right hip. Dictated by: Dictated on workstation # [id number]
== END ==
LOC: RAD 09:56
PROVIDERS: ATTEND Family Medicine
DX: M16.11 Unilateral primary osteoarthritis, right hip (principal)
CPT/HCPCS: 73502

== ENCOUNTER 2023-07-01 13:08 | Inpatient (IN) | payer MEDICARE, OTHER ==
[~2023-07-01] VITALS: Ht 162 cm; Wt 56.5 kg
--- NOTE | 2023-07-01 12:40 | PM&R Post Admission Assessment ---
PM&R Date of Visit: Jul 01, 2023 Time of Visit: 13:15 History of Present Illness CC: Bilateral hip fractures HPI: This is an 82yoWF clinic patient of Dr Gross and Dr Frey who presents from [facility] due to need of more aggressive therapy following left hip fracture 4 weeks after right hip fracture. Her pain is pretty well controlled currently and her bowels are moving. She is WBAT. I have restarted all of her meds from [place]. PT OT will work on regaining back to baseline function. Past Yfaaizh-Twudze-Kdtooz Hx Past Med/Social Hx: Reviewed Nursing Past Med/Soc Hx, Reviewed and Corrections made Patient Social History Marrital Status: Employed/Student: retired Alcohol Use: Denies Use Smoking Status: Never a Smoker 2nd Hand Smoke Exposure: No Recent Hopitalizations: No Immunizations Up To Date Date of Pneumonia Vaccine: May 25, 2017 Date of Influenza Vaccine: May 24, 2019 Seasonal Allergies Seasonal Allergies: No Past Medical History Surgeries: Adenoidectomy, Eye Surgery, Renal, Tonsillectomy Currently Using CPAP: No Cardiac: High Cholesterol, Hypertension Reproductive: No Sexually Transmitted Disease: No HIV/AIDS: No Menopausal Genitourinary: Kidney Stones Gastrointestinal: Gastroesophageal Reflux, Chronic Constipation, Polyps HEENT: Cataract, Tonsilitis Loss of Vision: Bilateral History of Blood Disorders: No Adverse Reaction to Blood Rodriguez: No (N/A) PM&R Allergy/Meds/Data Review Allergies Coded Allergies: Cephalexin Monohydrate (Verified Allergy, Mild, GI UPSET/LOOSE STOOLS, 08/31/18) Home Medications Scheduled Aspirin (Aspirin), 81 MG PO DAILY, (Reported) Atorvastatin Calcium (Atorvastatin Calcium), 10 MG PO DAILY, (Reported) Calcium Carbonate/Vitamin D3 (Caltrate 600 + D Tablet), 1 EACH PO DAILY, (Reported) Cetirizine HCl (Cetirizine HCl), 10 MG PO DAILY, (Reported) Cyanocobalamin (Cyanocobalamin Injection), 1,000 MCG IM MONTHLY, (Reported) Fluticasone Propionate (Flonase Allergy Relief), 2 SPRAY NSEACH HS, (Reported) Gabapentin (Gabapentin), 400 MG PO HS, (Reported) Metoprolol Succinate (Metoprolol Succinate), 12.5 MG PO DAILY, (Reported) Pantoprazole Sodium (Pantoprazole Sodium), 40 MG PO DAILY, (Reported) Discontinued Medications Aspirin (Aspir 81), 81 MG PO DAILY, (Reported) Discontinued Reason: No Longer Taking Atorvastatin Calcium (Atorvastatin Calcium), 10 MG PO HS, (Reported) Discontinued Reason: No Longer Taking Cholecalciferol (Vitamin D3) (Vitamin D3), 125 MCG PO DAILY, (Reported) Discontinued Reason: No Longer Taking Cyanocobalamin (Vitamin B-12) (Vitamin B-12), 1,000 MCG PO MONTHLY, (Reported) Discontinued Reason: No Longer Taking Ibandronate Sodium (Ibandronate Sodium), 150 MG PO MONTHLY, (Reported) Discontinued Reason: No Longer Taking Metoprolol Succinate (Metoprolol Succinate), 50 MG PO DAILY, (Reported) Discontinued Reason: No Longer Taking Pantoprazole Sodium (Protonix), 40 MG PO DAILY Discontinued Reason: No Longer Taking Current Medications Current Medications Reviewed Review of Systems Constitutional: see HPI, malaise, weakness EENTM: no symptoms reported Respiratory: no symptoms reported Cardiovascular: no symptoms reported Gastrointestinal: no symptoms reported Genitourinary: no symptoms reported Musculoskeletal: back pain, joint pain Skin: no symptoms reported Psychiatric/Neurological: No Symptoms Reported All Other Systems Reviewed Negative Unless Noted: Yes Physical Exam Physical Exam Vital Signs Capillary Refill : Height, Weight, BMI Height: 5'4.00" Weight: 139lbs. 0.0oz. 63.765114qt; 20.38 BMI Method:Stated General Appearance: WD/WN, Anxious, Chronically ill, Thin Eyes: Bilateral Eye Normal Inspection, Bilateral Eye PERRL HEENT: PERRL/EOMI, Normal ENT Inspection, Pharynx Normal Neck: Full Range of Motion, Normal Inspection, Non Tender, Supple, Carotid Bruit Respiratory: Chest Non Tender, Lungs Clear, Normal Breath Sounds, No Accessory Muscle Use, No Respiratory Distress Cardiovascular: Regular Rate, Rhythm, No Edema, No Gallop, No JVD, No Murmur, Normal Peripheral Pulses Gastrointestinal: Normal Bowel Sounds, No Organomegaly, No Pulsatile Mass, Non Tender, Soft Back: Normal Inspection, No CVA Tenderness, No Vertebral Tenderness Extremity: Normal Capillary Refill, Normal Inspection, Normal Range of Motion, Non Tender, No Calf Tenderness, No Pedal Edema Neurologic/Psychiatric: Alert, Oriented x3, Normal Mood/Affect, bakery sales clerk II-XII Norm as Tested, Abnormal Gait, Motor Weakness (bilateral legs) Skin: Normal Color, Warm/Dry Lymphatic: No Adenopathy PM&R Medical Assessment & Plan REHAB/MEDICAL ASSESSMENT AND PLAN: REHAB IMPAIRMENT GROUP: s/p bilateral hip fractures ETIOLOGIC DIAGNOSIS: Pathological right subtrochanteric fracture Pathological left subtrochanteric fracture The comorbidities that impact the patients function and/or functional outcome by: osteoporosis, GERD, HTN, HLP, frail status REHAB PLAN: The patient is being admitted to our comprehensive inpatient rehabilitation facility and can tolerate the intensity of service consisting of at least: 180 minutes of therapy a day, 5 out of 7 days a week Rehab treatment will consist of: PT OT will focus on regaining function with the use of AD in order to increase stamina and increase independence in ADL's in order to return home The patient/family has a good understanding of our discharge process and will benefit from an interdisciplinary inpatient rehabilitation program. The patient has potential to make improvement and is in need of at least two of the following multidisciplinary therapies including but not limited to physical, occupational, speech, and prosthetics and orthotics. Additionally the patient will need services from respiratory, nutritional services, wound care, psychology, etc. (Customize this to each patient). Given the patients complex condition and risk of further medical complications, rehabilitation services cannot be safely or effectively provided at a lower level of care such as a shelter facility. BARRIERS TO DISCHARGE: Frail status and fall risk ESTIMATED LOS: 10 days DISPOSITION: Home RELEVANT CHANGES SINCE PREADMISSION SCREENING: I have compared the patients medical and functional status at the time of the preadmission screening and there are: no changes PROGNOSIS: Good REHABILITATION GOALS: 1. PT OT will focus on regaining function with the use of AD in order to increase stamina and increase independence in ADL's in order to return home All the above goals were reviewed with the patient and he/she is in agreement. By signing this document, I acknowledge that I have personally performed a full physical examination on this patient within 24 hours of admission to this inpatient rehabilitation facility and have determined the patient to be able to tolerate the above course of treatment at an intensive level for a reasonable period of time. I will be completing a detailed individualized Plan of Care for this patient by day #4 of the patients stay based upon the Preadmission Screen, the Post-Admission Evaluation, and the therapy evaluations. Admission Dx/Comorbidities: (1) Bilateral hip fractures ICD Codes: S72.001A - Fracture of unspecified part of neck of right femur, initial encounter for closed fracture; S72.002A - Fracture of unspecified part of neck of left femur, initial encounter for closed fracture Assessment/Plan Assessment and Plan Assess & Plan/Chief Complaint Assessment: Bilateral hip fractures following a fall with osteoporosis GERD Osteoporosis HTN HLP Plan: PT OT Pain control BM regimen Monitor labs JOE ALVAREZ DO Jul 01, 2023 12:40
[~2023-07-01 13:08] MED LIST changes: +ASPI-999 PO; +BISACODYL 10 MG SUPPOSITORY PR PRN; +CALC1TAB PO; +CALCIUM CARBONATE 500 MG CHEW TABLET PO PRN; +CETI10TA17 PO; +CNC1KV IM; +DOCUSATE SODIUM 100 MG CAPSULE PO PRN; +FLUT9.9S NSEACH; +GABA-491 PO; +LACTULOSE SYRUP 10GM/15ML 30ML UDC PO PRN; +LOPERAMIDE 2 MG CAPSULE PO PRN; +ONDANSETRON 4 MG ORAL DISSOLVE TABLET PO PRN; +PANT40TA52 PO; +Sodium Phosphate/Sodium Biphosphate ADULT enema PR PRN; +diphenhydrAMINE 25 MG TABLET PO PRN; +guaiFENesin/CODEINE 10ML UDC PO PRN
[2023-07-01 14:00] VITALS: BP 111/57
--- NOTE | 2023-07-01 15:14 | Occupational Therapy Eval ---
OT Evaluation-General/PLF Medical Diagnosis Admission Date Jul 01, 2023 at 13:08 Medical Diagnosis: s/p b/l hip fx Onset Date: Jun 17, 2023 Therapy Diagnosis Therapy Diagnosis: decreased ADL status, weakness Height/Weight Height (Feet): 5 Height (Inches): 4.00 Weight (Pounds): 139 Weight (Ounces): 0.0 Weight Bear Status Weight Bearing Restriction: Weight Bearing/Tolerated Location Restriction: LE Bilateral Referral Physician: Evaristo Referral Reason: Evaluation/Treatment Medical History Additional Medical History GERD, HTN, Latex sensitivity Current History 05/24/23 R subtrochanteric fx 4 weeks ago s/p ORIF. 06/17/23 s/o L subtrochanteric fx s/p ORIF Social History Home: Single Level Current Living Status: Spouse Entry Into Home: Ramp ADL-Prior Level of Function SCALE: Activities may be completed with or without assistive devices. 5-Mwasgoebrv-mrrtnzh completes the activity by him/herself with no assistance from a helper. 5-Set-up or Clean-up Assistance-helper sets up or cleans up; patient completes activity. [place] assists only prior to or following the activity. 4-Supervision or Touching Assistance-helper provides verbal cues and/or touching/steadying and/or contact guard assistance as patient completes activity. Assistance may be provided throughout the activity or intermittently. 3-Partial/Moderate Assistance-helper does LESS THAN HALF the effort. [place] lifts, holds or supports trunk or limbs, but provides less than half the effort. 2-Substantial/Maximal Assistance-helper does MORE THAN HALF the effort. [place] lifts or holds trunk or limbs and provides more than half the effort. 0-Dmbfeewki-xqbsrz does ALL the effort. Patient does none of the effort to complete the activity. Or, the assistance of 2 or more helpers is required for the patient to complete the activity. If activity was not attempted, code reason: 7-Patient Refused. 9-Not Applicable-not attempted and the patient did not perform the activity before the current illness, exacerbation or injury. 10-Not Attempted due to Environmental Limitations-(lack of equipment, weather restraints, etc.). 88-Not Attempted due to Medical Conditions or Safety Concerns. ADL PLOF Comments Pt reports IND with ADLs and functional mobility, no AD prior to 1st surgery. Reports IND with functional mobility using FWW, but required assistance with ADLs between surgeries. She has walk in shower with small built in chair, believes a small SC would be helpful. She has a BSC over the toilet at home. Self Care: Independent Functional Cognition: Independent DME/Equipment: Bedside Commode (over toilet) OT Current Status Subjective Pt agreeable to OT evaluation/tx. Mental Status/Objective Patient Orientation: Person, Place, Time, Situation Current Glasses/Contacts: Yes Hearing Aids: No Dentures/Partials: No Hand Dominance: Right Upper Extremity ROM WFL, BUE shoulder flexion to approx 180 degrees Upper Extremity Coordination WFL per pt reprot Upper Extremity Sensation WFL per pt report, occasionally tingling/numbness in fingertips. Upper Extremity Strength grossly 4/5 BUEs ADL-Treatment Eating (QC): 6 (per pt report) Oral Hygiene (QC): 4 (SBA standing at sink) Shower/Bathe Self (QC): 3 (Per pt report, assistance washing/drying BLEs lower legs/feet.) Upper Body Dressing (QC): 5 (per pt report) Lower Body Dressing (QC): 2 (Per pt report, assist threading BLEs into pants, pt able to perform pant hike.) On/Off Footwear (QC): 1 (Per pt report.) Toileting Hygiene (QC): 4 (Pt able to manage clothing and hygiene, SBA.) Other Treatments Pt in recliner, agreeable to OT evaluation/tx. Pt provided information about PLOF and home set up and participated in UE screen. Pt able to recall surgical/medical history leading up to current hospitalization on ARU. Pt declines shower/dressing at this time, stating she had already completed this AM prior to arriving on unit. Pt provides level of assistance required with ADLS. Pt stood from recliner, SBA, transferring onto BSC over toilet, SBA. Pt reports the BSC seems like a good height for her. She then stood at sink to brush teeth, SBA. Pt performed functional mobility around ARU common area,then back to her room, SBA. Post tx, pt in recliner, call light in reach and all needs met. Education OT Patient Education: Correct positioning, Energy conservation, Progress toward Goal/Update tx plan, Purpose of tx/functional activities, Rehab process Teaching Recipient: Patient Teaching Methods: Discussion Response to Teaching: Verbalize Understanding BIMS CAM BIMS Expression of Ideas and Wants: Without Difficulty Understanding Verbal Content: Understands Brief Interview/Mental Status: Yes IRF JESUS BIMS: IRF JESUS BIMS Response (Comments) Value Repitition of Three Words Three 3 Recalls Socks Yes, No Cue Required 2 Recalls Blue Yes, No Cue Required 2 Recalls Bed Yes, No Cue Required 2 Year Correct 3 Month Accurate Within 5 Days 2 Day Correct 1 Total 15 Patient Normally Able to Recal: Current Session, Location of own room, Staff Names and faces, That he/she in a hsp Should Staff Asses. Mental St.: No Memory/Recall Ability: Current Season, Location of Own Room, Staff Names and Faces, That He/She in Hospit[facility] CAM Mental Status Change/Baseline: 0 Inattention: 0 Disorganized thinkin Altered level of consciousness: 0 OT Artists' Model Goals Artists' Model Goals Time Frame: Jul 17, 2023 Eating (QC): 6 Oral Hygiene (QC): 6 Toileting Hygiene (QC): 6 Shower/Bathe Self (QC): 6 Upper Body Dressing (QC): 6 Lower Body Dressing (QC): 6 On/Off Footwear (QC): 6 Additional Goals: 1-Demonstrate ADL Tasks, 2-Verbalize Understanding, 3- ImproveStrength/Chris 1=Demonstrate adherence to instructed precautions during ADL tasks. 2=Patient will verbalize/demonstrate understanding of assistive devices/modifications for ADL. 3=Patient will improve strength/tolerance for activity to enable patient to perform ADL's. OT Education/Plan Problem List/Assessment Assessment: Decreased Activ Tolerance, Decreased UE Strength, Impaired Funct Balance, Impaired I ADL's, Impaired Self-Care Skills Discharge Recommendations Plan/Recommendations: Continue POC Equpiment Recommendations-D/C: Bath Chair Treatment Plan/Plan of Care Patient would benefit from OT for education, treatment and training to promote independence in ADL's, mobility, safety and/or upper extremity function for ADL's. Plan of Care: ADL Retraining, Functional Mobility, Group Exercise/Act as Ind, UE Funct Exercise/Act Treatment Duration: Jul 17, 2023 Frequency: At least 5 of 7 days/Wk (IRF) Estimated Hrs Per Day: 1.5 hours per day Agreement: Yes Rehab Potential: Good Time Start Time: 14:00 Stop Time: 15:05 DATE: Jul 01, 2023 Total Time Billed (hr/min): 65 Billed Treatment Time 1, EVM (30'), ADL 2 (35') THAI MEZA OT Jul 01, 2023 15:14
--- NOTE | 2023-07-01 15:39 | ST Cognitive Linguistic Eval ---
Speech Evaluation-General Medical Diagnosis Subtrochanteric fx Onset Date: Jul 01, 2023 Therapy Diagnosis Therapy Diagnosis: NA Precautions Precautions: Fall Precautions/Isolations: Standard Precautions Referral Referring Physician: Dr. Loera Reason for Referral: Evaluation/Treatment Medical History Pertinent Medical History: GERD, HTN GERD, HTN, Latex sensitivity Current History 05/24/23 R subtrochanteric fx 4 weeks ago s/p ORIF. 06/17/23 s/o L subtrochanteric fx s/p ORIF Reviewed History: Yes Social History Current Living Status: Significant Other Speech PLF-Current Status Prior Level of Function Pt reports independence with all ADLs. Subjective Pt was sitting in bedside chair and was agreeable to evaluation. Language Eval: Auditory Follows 1-Step Commands: Functional Follows Complex Directions: Functional Follows General Conversations: Functional Language Eval: Verbal Language Completes Spontaneous Greeting: Functional Produces Auto, Serial Info: Functional Imitates Simple Words/Phrases: Functional Word Finding: Functional Requests Basic Needs: Functional States Basic Personal Info: Functional Language Evaluation: Reading Follows Simple Written Direct: Functional Comprehends Multiple Sentences: Functional Objective Cognitive Domain Visuospatial Skills: WNL Clock Drawing Severity Rating: WNL Objective Formal/Standardized Tests MOCA Results Pt was given the MOCA and scores WFL, 27/30. Pt was given bedside swallow screen and there are no concerns at this time for dysphagia. Impression Pt's cognitive linguistic abilities appear to be WFL, per assessment and conversation held with pt. Speech-Plan Patient/Family Goals Patient/Family Goals: To return home independent Treatment Plan Speech Therapy Treatment Plan: Discontinue ST Treatment Duration: Jul 01, 2023 Frequency: 1 time per week Estimated Hrs Per Day: Other (0) Rehab Potential: Good Pt/Family Agrees to Plan: Yes Time Speech Therapy Time In: 15:05 Speech Therapy Time Out: 15:30 DATE: Jul 01, 2023 Total Billed Time: 25 Billed Treatment Time 1 SPSNDCOMP 25 min Julianne Recio Jul 01, 2023 15:39
--- NOTE | 2023-07-01 16:04 | Physical Therapy Evaluation ---
PT Evaluation-General Medical Diagnosis Admission Date Jul 01, 2023 at 13:08 Medical Diagnosis: Subtrochanteric fx Onset Date: Jul 01, 2023 Therapy Diagnosis Therapy Diagnosis: leg weakness, decreased bed mobility/transfers/gait Height/Weight Height (Feet): 5 Height (Inches): 4.00 Weight (Pounds): 139 Weight (Ounces): 0.0 Precautions Precautions/Isolations: Fall Prevention, Standard Precautions Weight Bear Status Right Lower Extremity: Right Weight Bearing/Tolerated Left Lower Extremity: Left Weight Bearing/Tolerated Referral Physician: Evaristo Reason for Referral: Evaluation/Treatment Medical History Pertinent Medical History: GERD, HTN Additional Medical History post op anemai, hypotension. Current History (R) ORIF 4 weeks ago - hip fractured getting in/out of her car. Elective (L) ORIF due to "potential" for a fracture per xray per patient. Reviewed History: Yes Social History Home: Single Level Current Living Status: Significant Other Entry Into Home: Ramp Prior Prior Level of Function SCALE: Activities may be completed with or without assistive devices. 0-Vcwrqqecba-dhckruw completes the activity by him/herself with no assistance from a helper. 5-Set-up or Clean-up Assistance-helper sets up or cleans up; patient completes activity. [place] assists only prior to or following the activity. 4-Supervision or Touching Assistance-helper provides verbal cues and/or touching/steadying and/or contact guard assistance as patient completes activity. Assistance may be provided throughout the activity or intermittently. 3-Partial/Moderate Assistance-helper does LESS THAN HALF the effort. [place] lifts, holds or supports trunk or limbs, but provides less than half the effort. 2-Substantial/Maximal Assistance-helper does MORE THAN HALF the effort. [place] lifts or holds trunk or limbs and provides more than half the effort. 2-Ggpgnzkah-psgnbv does ALL the effort. Patient does none of the effort to complete the activity. Or, the assistance of 2 or more helpers is required for the patient to complete the activity. If activity was not attempted, code reason: 7-Patient Refused. 9-Not Applicable-not attempted and the patient did not perform the activity before the current illness, exacerbation or injury. 10-Not Attempted due to Environmental Limitations-(lack of equipment, weather restraints, etc.). 88-Not Attempted due to Medical Conditions or Safety Concerns. Bed Mobility: 6 Transfers (B,C,W/C): 6 Gait: 6 Stairs: 6 Wheelchair Mobility: 9 Indoor Mobility (Ambulation): Independent Stairs: Independent Prior Devices Use: None Prior Device Use: Has used FWW last 4 weeks (since previous (R) ORIF). PLOF is prior to 1st ORIF 4 weeks ago. Patient drove, took care of all the cooking, cleaning, laundry, etc and liked to walk for exercise without an AD. States she does have a night warehouse selector, sock trever and a leg calibration tester at home that her sister gave her. PT Evaluation-Current Subjective No c/o pain. Pain Section J - Health Conditions 1. Rarely or not at all 2. Occasionally 3. Frequently 4. Almost constantly 8. Unable to answer Pain Effect on Sleep: 1 Pain Interference with Therapy: 1 Pain Interference w/Day-to-Day: 1 Pt/Family Goals To return home and be able to get in/out of bed by herself. She states her will not be able to help her. Objective Patient Orientation: Person, Place, Time, Situation ROM/Strength ROM Upper Extremities defer to OT ROM Lower Extremities WFL at (B) knees/ankles. Limited hip flexion/abd/add due to weakness and "stiffness". Strength Upper Extremities defer to OT Strength Lower Extremities (B) ankles 5/5. (R) knee flexion/ext 5/5, (L) knee extension 3+/5, flexion 3+/5, hip flexion (B) 3-/5, hip abd/add (B) 3-/5. Integumentary/Posture Integumentary (B) hip ORIF incisions. Sensory Vision: Wears Glasses Hearing: Functional Sensation Right Lower Extremit: Intact Sensation Left Lower Extremity: Intact Transfers Roll Left & Right (QC): 3 (Min (A)) Sit to Lying (QC): 3 (min (A) /c LE's) Lying to Sitting/Side of Bed(Q: 3 (Min (A) /c bed rail use) Sit to Stand (QC): 3 (min (A) from bed and toilet, CGA from recliner) Chair/Jml-ga-Qrvxd Xfer(QC): 4 (CGA /c FWW) Toilet Transfer (QC): 3 (min (A) due to low toilet) Car Transfer (QC): 3 (Min (A) /c LE's) Gait Does the Patient Walk?: Yes Mode of Locomotion: Walk Anticipated Mode of Locomotion: Walk Walk 10 feet (QC): 4 (/c FWW) Walk 50 ft with 2 Turns(QC): 4 (/c FWW) Walk 150 ft (QC): 4 (/c FWW) Walking 10ft/uneven surface-QC: 4 (/c FWW) Distance: 200' Gait Assistive Device: FWW Comments/Gait Description States she was fatigued after gait, but no SOB nor LOB. Wheelchair Training Does the Pt Use a Wheelchair?: No Wheel 50 ft with 2 turns (QC): 9 Wheel 150 ft (QC): 9 Stairs 1 Step (curb) (QC): 3 (Min (A) /c FWW) 4 Steps (QC): 3 (Min (A) /c FWW) 12 Steps (QC): 88 (due to fatigue) Balance Sitting Static: Normal Sitting Dynamic: Fair Standing Static: Good Standing Dynamic: Good Picking up an Object (QC): 5 (with night warehouse selector (she has a night warehouse selector at home that she has used the past 4 weeks).) Special Test Comments Elderly Mobility Scale: 07/01. (goal ) Assessment/Needs 82 year old female who underwent an elective (L) hip ORIF after having a previous (R) hip ORIF 4 weeks ago. Biggest limitation is bed mobility and car transfers at this time due to (B) LE weakness. She has sit>stand deficits from lower seat heights, but is CGA from recliner, elevated side of bed. Would benefit from hip strengthening, higher level gait and balance activities to improve her overall functional mobility so she can return home at an (I) level. Rehab Potential: Good PT Half-Way Goals Half-Way Goals PT Half-Way Goals Time Frame: Jul 15, 2023 Roll Left to Right (QC): 6 Sit to Lying (QC): 6 Lying-Sitting on Side/Bed(QC): 6 Sit to Stand (QC): 6 Chair/Udk-lk-Xsppz Xfer(QC): 6 (/c FWW) Toilet/Commode Transfer (QC): 6 (/c FWW) Car Transfer (QC): 6 (/c FWW) Does the Patient Walk: Yes Walk 10 feet (QC): 6 (/c FWW) Walk 10ft-Uneven Surface(QC): 6 (/c FWW) Walk 50ft with 2 Turns (QC): 6 (/c FWW) Walk 150 ft (QC): 6 (/c FWW) Does the Pt use WC or Scooter?: No Wheel 50 feet with 2 turns (QC: 9 Wheel 150 feet: 9 1 Step (curb) (QC): 6 (/c FWW) 4 Steps (QC): 6 (/c rails) 12 Steps (QC): 6 (/c rails) Picking up an Object (QC): 6 (/c night warehouse selector) Elderly Mobility Scale score: 14/20 or better PT Plan Problem List Problem List: Activity Tolerance, Functional Strength, Safety, Balance, Gait, Transfer, Bed Mobility Treatment/Plan Treatment Plan: Continue Plan of Care Treatment Plan: Bed Mobility, Education, Functional Activity Chris, Functional Strength, Group Therapy, Gait, Safety, Therapeutic Exercise, Transfers Treatment Duration: Jul 15, 2023 Frequency: At least 5 of 7 days/Wk (IRF) Estimated Hrs Per Day: 1.5 hours per day Patient and/or Family Agrees t: Yes Discharge Recommendations Therapy Discharge Recommendati: Post Acute PT Time Time In: 1320 Time Out: 1400 DATE: Jul 01, 2023 Total Billed Treatment Time: 40 Total Billed Treatment 1, EMV 40 Natividad Child PT Jul 01, 2023 16:04
--- NOTE | 2023-07-01 16:29 | Occupational Ther Daily Note ---
OT Current Status-Daily Note Subjective Pt alert, sitting in recliner. Pt agrees to therapy. No c/o pain at this time. Mental Status/Objective Patient Orientation: Person, Place, Time, Situation ADL-Treatment Pt states that she has sock aide at home though is not comfortable with using it at this time. Education on dressing stick, LH shoehorn and sock aide to don/doff footwear. Pt demonstrated understanding of how to use equipment though will need continued skilled instruction to become proficient. Modified tie shoes to slip on. After therapy, pt sitting in recliner with call light/phone in reach. All needs met in room. Therapy Code Descriptions/Definitions Functional [place] Measure: 0=Not Assessed/NA 4=Minimal Assistance 1=Total Assistance 5=Supervision or Setup 2=Maximal Assistance 6=Modified [place] 3=Moderate Assistance 7=Complete IndependenceSCALE: Activities may be completed with or without assistive devices. 6-Cbcwgydtdl-akwzxyt completes the activity by him/herself with no assistance from a helper. 5-Set-up or Clean-up Assistance-helper sets up or cleans up; patient completes activity. [place] assists only prior to or following the activity. 4-Supervision or Touching Assistance-helper provides verbal cues and/or touching/steadying and/or contact guard assistance as patient completes activity. Assistance may be provided throughout the activity or intermittently. 3-Partial/Moderate Assistance-helper does LESS THAN HALF the effort. [place] lifts, holds or supports trunk or limbs, but provides less than half the effort. 2-Substantial/Maximal Assistance-helper does MORE THAN HALF the effort. [place] lifts or holds trunk or limbs and provides more than half the effort. 2-Isrguppzj-jmcnae does ALL the effort. Patient does none of the effort to complete the activity. Or, the assistance of 2 or more helpers is required for the patient to complete the activity. If activity was not attempted, code reason: 7-Patient Refused. 9-Not Applicable-not attempted and the patient did not perform the activity before the current illness, exacerbation or injury. 10-Not Attempted due to Environmental Limitations-(lack of equipment, weather restraints, etc.). 88-Not Attempted due to Medical Conditions or Safety Concerns. OT Chcf Goals Chcf Goals Time Frame: Jul 17, 2023 Acute change in mental status: 0 Inattention: 0 Disorganized thinkin Altered level of consciousness: 0 Eating (QC): 6 Oral Hygiene (QC): 6 Toileting Hygiene (QC): 6 Shower/Bathe Self (QC): 6 Upper Body Dressing (QC): 6 Lower Body Dressing (QC): 6 On/Off Footwear (QC): 6 Additional Goals: 1-Demonstrate ADL Tasks, 2-Verbalize Understanding, 3-ImproveStrength/Chris 1=Demonstrate adherence to instructed precautions during ADL tasks. 2=Patient will verbalize/demonstrate understanding of assistive devices/modifications for ADL. 3=Patient will improve strength/tolerance for activity to enable patient to perform ADL's. OT Education/Plan Problem List/Assessment Assessment: Decreased Activ Tolerance, Impaired Self-Care Skills Discharge Recommendations Plan/Recommendations: Continue POC Treatment Plan/Plan of Care Patient would benefit from OT for education, treatment and training to promote independence in ADL's, mobility, safety and/or upper extremity function for ADL's. Plan of Care: ADL Retraining, Functional Mobility, Group Exercise/Act as Ind, UE Funct Exercise/Act Treatment Duration: Jul 17, 2023 Frequency: At least 5 of 7 days/Wk (IRF) Estimated Hrs Per Day: 1.5 hours per day Agreement: Yes Rehab Potential: Good Time Start Time: 15:45 Stop Time: 16:15 DATE: Jul 01, 2023 Total Time Billed (hr/min): 30 Billed Treatment Time 1 visit-FA 2 (30 min) BECKY ARZOLA Jul 01, 2023 16:29
--- NOTE | 2023-07-01 17:14 | Physical Therapy Daily Note ---
PT Daily Note-Current Subjective Pt sitting in recliner upon arrival. Pt agrees to PT for short tx to finish first day of therapy. Pain Location: No Pain Reported Section J - Health Conditions 1. Rarely or not at all 2. Occasionally 3. Frequently 4. Almost constantly 8. Unable to answer Pain Effect on Sleep: 1 Pain Interference with Therapy: 1 Pain Interference w/Day-to-Day: 1 Mental Status Patient Orientation: Person, Place, Time, Situation Transfers SCALE: Activities may be completed with or without assistive devices. 4-Dhegdpniac-dzdufot completes the activity by him/herself with no assistance from a helper. 5-Set-up or Clean-up Assistance-helper sets up or cleans up; patient completes activity. [place] assists only prior to or following the activity. 4-Supervision or Touching Assistance-helper provides verbal cues and/or touching/steadying and/or contact guard assistance as patient completes activity. Assistance may be provided throughout the activity or intermittently. 3-Partial/Moderate Assistance-helper does LESS THAN HALF the effort. [place] lifts, holds or supports trunk or limbs, but provides less than half the effort. 2-Substantial/Maximal Assistance-helper does MORE THAN HALF the effort. [place] lifts or holds trunk or limbs and provides more than half the effort. 9-Iqsshabyl-xdxets does ALL the effort. Patient does none of the effort to complete the activity. Or, the assistance of 2 or more helpers is required for the patient to complete the activity. If activity was not attempted, code reason: 7-Patient Refused. 9-Not Applicable-not attempted and the patient did not perform the activity before the current illness, exacerbation or injury. 10-Not Attempted due to Environmental Limitations-(lack of equipment, weather restraints, etc.). 88-Not Attempted due to Medical Conditions or Safety Concerns. Sit to Stand (QC): 3 Weight Bearing Right Lower Extremity: Right Weight Bearing/Tolerated Left Lower Extremity: Left Weight Bearing/Tolerated Treatments Pt and Sp discuss w/RENDER[facility] ARU Expectations and review safety. Nurse wants to see sacral wound so pt completes Sit to stand TF. Waffle cushion placed for further wound prevention & protection. Pt returns to recliner to eat dinner at end of tx. All needs met, call light next to pt. Assessment Pt is highly motivated and cognitive. Pt demonstrates good rehab potential and TF at Min A from Sit to Stand. PT Care Home Goals Care Home Goals PT Care Home Goals Time Frame: Jul 15, 2023 Roll Left & Right (QC): 6 Sit to Lying (QC): 6 Lying-Sitting on Side/Bed(QC): 6 Sit to Stand (QC): 6 Chair/Kke-dg-Jmams Xfer(QC): 6 (/c FWW) Toilet Transfer (QC): 6 (/c FWW) Car Transfer (QC): 6 (/c FWW) Does the Patient Walk: Yes Walk 10 feet (QC): 6 (/c FWW) Walk 50ft with 2 Turns (QC): 6 (/c FWW) Walk 150 ft (QC): 6 (/c FWW) Walking 10ft on Uneven Surface: 6 (/c FWW) 1 Step (curb) (QC): 6 (/c FWW) 4 Steps (QC): 6 (/c rails) 12 Steps (QC): 6 (/c rails) Picking up an Object (QC): 6 (/c dorr operator) Does the Pt use WC or Scooter?: No Wheel 50 feet with 2 turns (QC: 9 Wheel 150 feet: 9 PT Plan Problem List Problem List: Functional Strength, Gait, Transfer Treatment/Plan Treatment Plan: Continue Plan of Care Treatment Plan: Bed Mobility, Education, Functional Activity Chris, Functional Strength, Group Therapy, Gait, Safety, Therapeutic Exercise, Transfers Treatment Duration: Jul 15, 2023 Frequency: At least 5 of 7 days/Wk (IRF) Estimated Hrs Per Day: 1.5 hours per day Patient and/or Family Agrees t: Yes Safety Risks/Education Patient Education: Safety Issues Teaching Recipient: Patient, Significant Other Teaching Methods: Discussion Response to Teaching: Verbalize Understanding Time Time In: 1625 Time Out: 1650 DATE: Jul 01, 2023 Total Billed Treatment Time: 25 Total Billed Treatment 1, FA x2 (25m) LILLY BAUTISTA RENDERER Jul 01, 2023 17:14
[2023-07-01 19:53] VITALS: BP 111/58
[2023-07-01] MEDS: GABAPENTIN 400 MG CAPSULE PO SCH (20:53)
[2023-07-01] MEDS: FLUTICASONE NASAL SPRAY (120 SPRAYS) NS SCH (20:53)
[2023-07-01] MEDS: DOCUSATE SODIUM 100 MG CAPSULE PO SCH (20:53)
[2023-07-01] MEDS: ACETAMINOPHEN 325 MG TABLET PO PRN (20:53)
[2023-07-01] MEDS: SENNA W/DOCUSATE TABLET PO SCH (20:53)
[2023-07-02 05:59] LABS: BASOPHILS % (AUTO) 0 % (0-10); EOSINOPHILS # (AUTO) 0.2 10^3/uL (0.0-0.3); EOSINOPHILS % (AUTO) 4 % (0-10); HEMATOCRIT 27 % (35-52); HEMOGLOBIN 8.8 g/dL (11.5-16.0); LYMPHOCYTES # (AUTO) 1.6 10^3/uL (1.0-4.0); LYMPHOCYTES % (AUTO) 33 % (12-44); MEAN CORPUSCULAR HEMOGLOBIN 31 pg (25-34); MEAN CORPUSCULAR HGB CONC 32 g/dL (32-36); MEAN CORPUSCULAR VOLUME 98 fL (80-99); MEAN PLATELET VOLUME 9.4 fL (9.0-12.2); MONOCYTES # (AUTO) 0.5 10^3/uL (0.0-1.0); MONOCYTES % (AUTO) 11 % (0-12); NEUTROPHILS # (AUTO) 2.5 10^3/uL (1.8-7.8); NEUTROPHILS % (AUTO) 52 % (42-75); PLATELET COUNT 319 10^3/uL (130-400); WHITE BLOOD COUNT 4.8 10^3/uL (4.3-11.0)
[2023-07-02 06:10] LABS: ALBUMIN 2.8 GM/DL (3.2-4.5); POTASSIUM 3.9 MMOL/L (3.6-5.0)
[2023-07-02 06:11] LABS: CALCIUM 8.7 MG/DL (8.5-10.1)
[2023-07-02 06:13] LABS: TOTAL PROTEIN 4.7 GM/DL (6.4-8.2)
[2023-07-02 06:14] LABS: BILIRUBIN,TOTAL 0.9 MG/DL (0.1-1.0)
[2023-07-02 06:16] LABS: CREATININE SERUM 0.77 MG/DL (0.60-1.30)
[2023-07-02 08:00] VITALS: BP 102/57
[2023-07-02] MEDS: CALCIUM CARBONATE 600 MG +VITAMIN D TABLET PO SCH (08:20)
[2023-07-02] MEDS: DOCUSATE SODIUM 100 MG CAPSULE PO SCH ×2 (08:20→20:35)
[2023-07-02] MEDS: LORATADINE 10 MG TABLET PO SCH (08:20)
[2023-07-02] MEDS: ASPIRIN 81 MG CHEWABLE TABLET PO SCH (08:20)
[2023-07-02] MEDS: PANTOPRAZOLE 40 MG TABLET PO SCH (08:20)
[2023-07-02] MEDS: SENNA W/DOCUSATE TABLET PO SCH ×2 (08:21→21:35)
--- NOTE | 2023-07-02 08:39 | PM&R Progress Note ---
Subjective HPI/CC On Admission Date Seen by Provider: Jul 02, 2023 Time Seen by Provider: 12:00 Subjective/Events-last exam 07/02/2023: Patient doing well Reviewed meds and labs Adding iron and B12 to labs for anemia source Pain is controlled Bowels are moving Working with therapy Review of Systems General: Fatigue, Malaise Objective Exam Vital Signs Vital Signs Date Time Temp Pulse Resp B/P (MAP) Pulse Ox O2 Delivery O2 Flow Rate FiO2 07/02/23 20:30 Room Air 07/02/23 20:00 36.4 74 18 111/50 (70) 96 Capillary Refill : General Appearance: WD/WN, Anxious, Chronically ill, Thin HEENT: PERRL/EOMI, Normal ENT Inspection, Pharynx Normal Neck: Full Range of Motion, Normal Inspection, Non Tender, Supple, Carotid Bruit Respiratory: Chest Non Tender, Lungs Clear, Normal Breath Sounds, No Accessory Muscle Use, No Respiratory Distress Cardiovascular: Regular Rate, Rhythm, No Edema, No Gallop, No JVD, No Murmur, Normal Peripheral Pulses Gastrointestinal: Normal Bowel Sounds, No Organomegaly, No Pulsatile Mass, Non Tender, Soft Back: Normal Inspection, No CVA Tenderness, No Vertebral Tenderness Extremity: Normal Capillary Refill, Normal Inspection, Normal Range of Motion, Non Tender, No Calf Tenderness, No Pedal Edema Neurologic/Psychiatric: Alert, Oriented x3, Normal Mood/Affect, hot die picker II-XII Norm as Tested, Abnormal Gait, Motor Weakness (bilateral legs) Skin: Normal Color, Warm/Dry Lymphatic: No Adenopathy Results/Procedures Lab Laboratory Tests 07/02/23 05:40 Patient resulted labs reviewed. FIM Transfers Therapy Code Descriptions/Definitions Functional [place] Measure: 0=Not Assessed/NA 4=Minimal Assistance 1=Total Assistance 5=Supervision or Setup 2=Maximal Assistance 6=Modified [place] 3=Moderate Assistance 7=Complete IndependenceSCALE: Activities may be completed with or without assistive devices. 8-Kjssxhzgdw-lazpber completes the activity by him/herself with no assistance from a helper. 5-Set-up or Clean-up Assistance-helper sets up or cleans up; patient completes activity. [place] assists only prior to or following the activity. 4-Supervision or Touching Assistance-helper provides verbal cues and/or touching/steadying and/or contact guard assistance as patient completes activity. Assistance may be provided throughout the activity or intermittently. 3-Partial/Moderate Assistance-helper does LESS THAN HALF the effort. [place] lifts, holds or supports trunk or limbs, but provides less than half the effort. 2-Substantial/Maximal Assistance-helper does MORE THAN HALF the effort. [place] lifts or holds trunk or limbs and provides more than half the effort. 8-Ajpdsbdnm-dndspu does ALL the effort. Patient does none of the effort to co mplete the activity. Or, the assistance of 2 or more helpers is required for the patient to complete the activity. If activity was not attempted, code reason: 7-Patient Refused. 9-Not Applicable-not attempted and the patient did not perform the activity before the current illness, exacerbation or injury. 10-Not Attempted due to Environmental Limitations-(lack of equipment, weather restraints, etc.). 88-Not Attempted due to Medical Conditions or Safety Concerns. Roll Left to Right (QC): 3 (Min (A)) Sit to Lying (QC): 3 (min (A) /c LE's) Sit to Stand (QC): 3 Chair/Edb-ve-Rieee Xfer(QC): 4 (CGA /c FWW) Car Transfer (QC): 3 (Min (A) /c LE's) Gait Training Does the Patient Walk?: Yes Walk 10 feet (QC): 4 (/c FWW) Walk 50 ft with 2 Turns(QC): 4 (/c FWW) Walk 150 ft (QC): 4 (/c FWW) Walking 10ft/uneven surface-QC: 4 (/c FWW) Gait Assistive Device: FWW Wheelchair Training Does the Pt Use a Wheelchair?: No Wheel 50 ft with 2 turns (QC): 9 Wheel 150 ft (QC): 9 Stair Training 1 Step (curb) (QC): 3 (Min (A) /c FWW) 4 Steps (QC): 3 (Min (A) /c FWW) 12 Steps (QC): 88 (due to fatigue) Balance Picking up an Object (QC): 5 (with oyster picker (she has a oyster picker at home that she has used the past 4 weeks).) ADL-Treatment Eating (QC): 6 (per pt report) Oral Hygiene (QC): 4 (SBA standing at sink) Shower/Bathe Self (QC): 3 (Per pt report, assistance washing/drying BLEs lower legs/feet.) Upper Body Dressing (QC): 5 (per pt report) Lower Body Dressing (QC): 2 (Per pt report, assist threading BLEs into pants, pt able to perform pant hike.) On/Off Footwear (QC): 1 (Per pt report.) Toileting Hygiene (QC): 4 (Pt able to manage clothing and hygiene, SBA.) Assessment/Plan Assessment and Plan Assess & Plan/Chief Complaint Assessment: Bilateral hip fractures following a fall with osteoporosis GERD Osteoporosis HTN HLP Plan: PT OT Pain control BM regimen Monitor labs 07/02/2023: Await iron and B12 results Continue aggressive rehab (1) Bilateral hip fractures JOE ALVAREZ DO Jul 02, 2023 08:39
--- NOTE | 2023-07-02 08:40 | Individualized Plan of Care ---
Individualized Plan of Care Rehab Nursing IPOC Order Admission Date Jul 01, 2023 at 13:08 Current Orders Orders Admission Order(Inpt,Obs,Sdc) (07/01/23 12:39) Vital Signs: Per Unit Policy ( ,16,00 (07/01/23 12:39) Alexandre Garrett , (07/01/23 12:39) Sequential Compression Device [id number] (07/01/23 12:39) Resident Service Coordinator-Inpt Rehab Con (07/01/23 12:39) Rehab Nursing Orders-Ipoc (07/01/23 12:39) Physical Therapy Rehab Orders (07/01/23 12:39) Occupational Therapy Rehab Ord (07/01/23 12:39) Speech Therapy Rehab Orders (07/01/23 12:39) Cbc And Automated Diff (07/02/23 06:00) Comprehensive Metabolic Panel (07/02/23 06:00) Precautions (Aru) (07/01/23 12:39) Weekly Weight WEEK (07/01/23 12:39) Rehab-Intensity Of Therapy (07/01/23 12:39) Initiate Admission Nursing Pro .admission (07/01/23 12:39) Calcium Carbonate Chew Tablet (Calcium C (07/01/23 12:45) Diphenhydramine Tablet (Diphenhydramine (07/01/23 12:45) Docusate Sodium Capsule (Docusate Sodium (07/01/23 21:00) Docusate Sodium Capsule (Docusate Sodium (07/01/23 12:45) Bisacodyl Suppository (Bisacodyl Supposi (07/01/23 12:45) Lactulose Oral Solution (Enulose Oral So (07/01/23 12:45) Na Phos/Na Biphos Adult Enema (Na Phos/N (07/01/23 12:45) Guaifenesin/Codeine Syrup (Guaifenesin/C (07/01/23 12:45) Loperamide Capsule (Loperamide Capsule) (07/01/23 12:45) Melatonin Tablet (Melatonin Tablet) (07/01/23 12:45) Polyethylene Glycol Powder (Polyethylen (07/01/23 21:00) Ondansetron Oral Dissolve Tab (Ondanset (07/01/23 12:45) Senna W/Docusate Tablet (Senna W/Docusat (07/01/23 21:00) Acetaminophen Tablet (Acetaminophen Ta (07/01/23 12:45) Initiate Admission Nursing Pro .admission (07/01/23 12:39) Admission Arrival Bed Request (07/01/23 13:08) General/Regular (07/01/23 Lunch) Code/Resuscitation (07/01/23 13:31) Aspirin Chewable Tablet (Aspirin Chewabl (07/02/23 09:00) Atorvastatin Tablet (Atorvastatin Tablet (07/02/23 09:00) Cyanocobalamin Injection (Cyanocobalamin (07/01/23 13:45) Gabapentin Capsule (Gabapentin Capsule) (07/01/23 21:00) Metoprolol Succinate (Xl) Tab (Metoprolo (07/02/23 09:00) Pantoprazole Tablet (Pantoprazole Tablet (07/02/23 09:00) Calcium Carbonate + Vitamin D3 (Calcium (07/02/23 09:00) Loratadine Tablet (Loratadine Tablet) (07/02/23 09:00) Fluticasone Nasal [place] (Fluticasone Jayce (07/01/23 21:00) Patient Visit (07/01/23 ) Pt Eval Moderate Complexity (07/01/23 ) Patient Visit (07/01/23 ) Functional Activities, Ea 15 (07/01/23 ) Patient Visit (07/01/23 ) Speech Sound Lang Comp (07/01/23 ) Patient Visit (07/02/23 ) Exercise Therap, Ea 15 Min (07/02/23 ) Gait Training, Ea 15 Min (07/02/23 ) Iron Test (Fe) (07/02/23 12:18) Vitamin B 12 (07/02/23 12:18) Rehab Nursing Orders: Ongoing Assess. of Cognitive Status, Ongoing Assess. of Function Status, Bladder Management, Bladder Scan, Bladder Training, Bowel Management, Bowel Training, Disease Management & Educaiton, DVT Prophylaxis, Fall Prevention, Fluid/Electrolyte/Nutrition Mgmt, Infection Prevention, Medication Management & Education, Management of Risks & Complications, Management of Skin Intergrity, Nutrition Management, Pain Management, Patient/Family Support, Safety Management, Weight Bearing Precaution, Wound Management Intensity of Therapy to be met Patient to be seen: Min.3h per day/5 of 7d PT IPOC Problem List: Functional Strength, Gait, Transfer Treatment Plan: Continue Plan of Care Bed Mobility, Education, Functional Activity Chris, Functional Strength, Group Therapy, Gait, Safety, Therapeutic Exercise, Transfers Treatment Duration: Jul 15, 2023 Frequency: At least 5 of 7 days/Wk (IRF) Estimated Hrs Per Day: 1.5 hours per day OT IPOC Problems: Decreased Activ Tolerance, Impaired Self-Care Skills OT Treatment, Training and Edu: Yes Plan of Care: ADL Retraining, Functional Mobility, Group Exercise/Act as Ind, UE Funct Exercise/Act Treatment Duration: Jul 17, 2023 Frequency: At least 5 of 7 days/Wk (IRF) Estimated Hrs Per Day: 1.[address] IPOC Speech Therapy Treatment Plan: Discontinue ST Treatment Duration: Jul 01, 2023 Frequency: 1 time per week Estimated Hrs Per Day: Other (0) Resident Service Coordinator/Case Mgmt Resident Service Coordinator/Case Managemen: Discharge Planning Dietitian/Credentialing Coordinator Dietitian/Credentialing Coordinator to monitor nutritional status and make changes and/or recommendations as needed and work with speech pathology on dietary upgrades as the occur. Physician IPOC Medical Issues being managed closely and that require the 24 hour availability of a physician: Recent bilateral hip fractures will require close monitoring due to anemia and significant frailty will be at high risk for decompensation and additional medical compromise Medical Issues: Bowel/Bladder Function, DVT Prophylaxis, Falls Precautions, Fluid/Electrolyte/Nutrition Balance, Infection Protection, Pain Management, Weight Bearing Precautions, Wound Care Brief Synthesis of Preadmission Screen, Post-Admission Evaluation, and Therapy Evaluations: PT and OT will focus on increase ambulation with the use of assistive devices is independence in ADLs in order to return back home to independent living Medical Prognosis: Good Anticipated Length of Stay: 7 days JOE ALVAREZ DO Jul 02, 2023 08:40
--- NOTE | 2023-07-02 12:30 | Therapy Group Daily Note ---
Therapy Daily Group Note Patient Education Topic Fall Prevention, Exercises Exercises Balance, Sit to/from Stand, ROM, Stretching, UE Exercise Session Ratio (pt:therapist): 3:1 Goal of Session: Energy Conservation Tech., UE/LE Strengthing, Safety with Transfers Goal Met for this Session: Yes Pt Benefit of Group: Contributions to Others, F/U Use of Strategies @Home, Increased Functional Safety, Increased Functional Strength, Socialization Other/Notes Pt ambulated to OT group in therapy gym using FWW and supervision for balance. Group consisted of introductions(name, place living), socialization, bilateral UE seated exercises, dynamic functional balance activity (in standing) and UE/LE stretching. Pt introduced self appropriately and actively listened to peers. Pt able to complete B UE seated exercises and tolerated well. Pt participated in activities and demonstrated understanding of HEP education by performing exercises without cues for proper form. After therapy, sitting in recliner with call light/phone in reach. All needs met. Start Time: 11:15 Stop Time: 12:15 Total Billed Treatment Time: 60 Total Billed Treatment 1, GRP Abby Molina OTR/Daniela Jul 02, 2023 12:30
--- NOTE | 2023-07-02 12:45 | Physical Therapy Daily Note ---
PT Daily Note-Current Subjective Patient has no pain complaints, just stiffness. Pain Section J - Health Conditions 1. Rarely or not at all 2. Occasionally 3. Frequently 4. Almost constantly 8. Unable to answer Pain Effect on Sleep: 1 Pain Interference with Therapy: 1 Pain Interference w/Day-to-Day: 1 Transfers SCALE: Activities may be completed with or without assistive devices. 6-Wqfmhnteuu-yaypqse completes the activity by him/herself with no assistance from a helper. 5-Set-up or Clean-up Assistance-helper sets up or cleans up; patient completes activity. [place] assists only prior to or following the activity. 4-Supervision or Touching Assistance-helper provides verbal cues and/or touching/steadying and/or contact guard assistance as patient completes activity. Assistance may be provided throughout the activity or intermittently. 3-Partial/Moderate Assistance-helper does LESS THAN HALF the effort. [place] lifts, holds or supports trunk or limbs, but provides less than half the effort. 2-Substantial/Maximal Assistance-helper does MORE THAN HALF the effort. [place] lifts or holds trunk or limbs and provides more than half the effort. 2-Oarrncukg-yvltnb does ALL the effort. Patient does none of the effort to complete the activity. Or, the assistance of 2 or more helpers is required for the patient to complete the activity. If activity was not attempted, code reason: 7-Patient Refused. 9-Not Applicable-not attempted and the patient did not perform the activity before the current illness, exacerbation or injury. 10-Not Attempted due to Environmental Limitations-(lack of equipment, weather restraints, etc.). 88-Not Attempted due to Medical Conditions or Safety Concerns. Sit to Lying (QC): 4 (CGA using (L) leg x ray control equipment repairer /c mod-max cues.) Lying to Sitting/Side of Bed(Q: 4 (CGA with (L) leg x ray control equipment repairer with cues) Weight Bearing Right Lower Extremity: Right Weight Bearing/Tolerated Left Lower Extremity: Left Weight Bearing/Tolerated Gait Training Walk 150 ft (QC): 4 (SBA to gym /c FWW 350'.) Exercises (B) LE red t-band ex in sitting: ham curls x 10, PF x 15, DF x 1 (B) ex on looney mat: hooklying hip adduction pillow squeeze x 10, hooklying hip abd with RTB 10, single leg abd/add with leg extended and therapist supporting heel x 10 (B), quad sets x 10 (B). PT Stamping Bench Die Maker Goals Retirement Goals PT Retirement Goals Time Frame: Jul 15, 2023 Roll Left & Right (QC): 6 Sit to Lying (QC): 6 Lying-Sitting on Side/Bed(QC): 6 Sit to Stand (QC): 6 Chair/Dnr-lo-[place] Xfer(QC): 6 (/c FWW) Toilet Transfer (QC): 6 (/c FWW) Car Transfer (QC): 6 (/c FWW) Does the Patient Walk: Yes Walk 10 feet (QC): 6 (/c FWW) Walk 50ft with 2 Turns (QC): 6 (/c FWW) Walk 150 ft (QC): 6 (/c FWW) Walking 10ft on Uneven Surface: 6 (/c FWW) 1 Step (curb) (QC): 6 (/c FWW) 4 Steps (QC): 6 (/c rails) 12 Steps (QC): 6 (/c rails) Picking up an Object (QC): 6 (/c cook jelly) Does the Pt use WC or Scooter?: No Wheel 50 feet with 2 turns (QC: 9 Wheel 150 feet: 9 PT Plan Treatment/Plan Treatment Plan: Continue Plan of Care Treatment Plan: Bed Mobility, Education, Functional Activity Chris, Functional Strength, Group Therapy, Gait, Safety, Therapeutic Exercise, Transfers Treatment Duration: Jul 15, 2023 Frequency: At least 5 of 7 days/Wk (IRF) Estimated Hrs Per Day: 1.5 hours per day Patient and/or Family Agrees t: Yes Time Time In: 1045 Time Out: 1115 DATE: Jul 02, 2023 Total Billed Treatment Time: 30 Total Billed Treatment 1, EX, GT Natividad Child PT Jul 02, 2023 12:45
--- NOTE | 2023-07-02 12:46 | Occupational Ther Daily Note ---
OT Current Status-Daily Note Subjective Pt received sitting in recliner. Pt very pleasant and willing to participate in therapy. Pain Numeric Pain Scale: 2 Location Body Site: Hip Pain Description: Dull Mental Status/Objective Patient Orientation: Person, Place, Time, Situation Attachments: IV ADL-Treatment Therapy Code Descriptions/Definitions Functional [place] Measure: 0=Not Assessed/NA 4=Minimal Assistance 1=Total Assistance 5=Supervision or Setup 2=Maximal Assistance 6=Modified [place] 3=Moderate Assistance 7=Complete IndependenceSCALE: Activities may be completed with or without assistive devices. 5-Bjpnvmyamq-vxblpph completes the activity by him/herself with no assistance from a helper. 5-Set-up or Clean-up Assistance-helper sets up or cleans up; patient completes activity. [place] assists only prior to or following the activity. 4-Supervision or Touching Assistance-helper provides verbal cues and/or touching/steadying and/or contact guard assistance as patient completes activity. Assistance may be provided throughout the activity or intermittently. 3-Partial/Moderate Assistance-helper does LESS THAN HALF the effort. [place] lifts, holds or supports trunk or limbs, but provides less than half the effort. 2-Substantial/Maximal Assistance-helper does MORE THAN HALF the effort. [place] lifts or holds trunk or limbs and provides more than half the effort. 1-Crjpvdaxa-khatmp does ALL the effort. Patient does none of the effort to complete the activity. Or, the assistance of 2 or more helpers is required for the patient to complete the activity. If activity was not attempted, code reason: 7-Patient Refused. 9-Not Applicable-not attempted and the patient did not perform the activity before the current illness, exacerbation or injury. 10-Not Attempted due to Environmental Limitations-(lack of equipment, weather restraints, etc.). 88-Not Attempted due to Medical Conditions or Safety Concerns. Oral Hygiene (QC): 4 (standing at sink ) Toileting Hygiene (QC): 4 Toilet Transfer (QC): 4 Other Treatment Pt completed functional dynamic standing activites for ~15 mins with supervision for balance and 3 rest breaks. Pt completed functional mobility for ~200ft with FWW and CGA for balance, requiring no cues for safety. Pt demonstrated ability to reach outside BRY x10 with no LOB and CGA for safety. Education OT Patient Education: Correct positioning, Energy conservation, Modified ADL techniques, Progress toward Goal/Update tx plan, Purpose of tx/functional activities, Reviewed precautions, Rehab process, Safety issues, Transfer techniques Teaching Recipient: Patient Teaching Methods: Demonstration, Discussion Response to Teaching: Verbalize Understanding, Return Demonstration OT Mcc Goals Mcc Goals Time Frame: Jul 17, 2023 Acute change in mental status: 0 Inattention: 0 Disorganized thinkin Altered level of consciousness: 0 Eating (QC): 6 Oral Hygiene (QC): 6 Toileting Hygiene (QC): 6 Shower/Bathe Self (QC): 6 Upper Body Dressing (QC): 6 Lower Body Dressing (QC): 6 On/Off Footwear (QC): 6 Additional Goals: 1-Demonstrate ADL Tasks, 2-Verbalize Understanding, 3- ImproveStrength/Chris 1=Demonstrate adherence to instructed precautions during ADL tasks. 2=Patient will verbalize/demonstrate understanding of assistive devices/modifications for ADL. 3=Patient will improve strength/tolerance for activity to enable patient to perform ADL's. OT Education/Plan Problem List/Assessment Assessment: Decreased Activ Tolerance, Decreased Safety Aware, Decreased UE Strength, Impaired Bed Mobility, Impaired Coordination, Impaired Funct Balance, Impaired I ADL's, Impaired Self-Care Skills Discharge Recommendations Plan/Recommendations: Continue POC Treatment Plan/Plan of Care Treatment,Training & Education: Yes Patient would benefit from OT for education, treatment and training to promote independence in ADL's, mobility, safety and/or upper extremity function for ADL's. Plan of Care: ADL Retraining, Functional Mobility, Group Exercise/Act as Ind, UE Funct Exercise/Act Treatment Duration: Jul 17, 2023 Frequency: At least 5 of 7 days/Wk (IRF) Estimated Hrs Per Day: 1.5 hours per day Agreement: Yes Rehab Potential: Good Time Start Time: 09:40 Stop Time: 10:10 DATE: Jul 02, 2023 Total Time Billed (hr/min): 30 Billed Treatment Time 1, ADL 1, FA 1 Abby Molina OTR/L Jul 02, 2023 12:46
--- NOTE | 2023-07-02 16:39 | Physical Therapy Daily Note ---
PT Daily Note-Current Subjective Patient has no new complaints. Pain Section J - Health Conditions 1. Rarely or not at all 2. Occasionally 3. Frequently 4. Almost constantly 8. Unable to answer Pain Effect on Sleep: 1 Pain Interference with Therapy: 1 Pain Interference w/Day-to-Day: 1 Transfers SCALE: Activities may be completed with or without assistive devices. 5-Sujyhqyixu-ryvkfzk completes the activity by him/herself with no assistance from a helper. 5-Set-up or Clean-up Assistance-helper sets up or cleans up; patient completes activity. [place] assists only prior to or following the activity. 4-Supervision or Touching Assistance-helper provides verbal cues and/or touching/steadying and/or contact guard assistance as patient completes activity. Assistance may be provided throughout the activity or intermittently. 3-Partial/Moderate Assistance-helper does LESS THAN HALF the effort. [place] lifts, holds or supports trunk or limbs, but provides less than half the effort. 2-Substantial/Maximal Assistance-helper does MORE THAN HALF the effort. [place] lifts or holds trunk or limbs and provides more than half the effort. 4-Sjjuyqnuq-mywzhf does ALL the effort. Patient does none of the effort to complete the activity. Or, the assistance of 2 or more helpers is required for the patient to complete the activity. If activity was not attempted, code reason: 7-Patient Refused. 9-Not Applicable-not attempted and the patient did not perform the activity before the current illness, exacerbation or injury. 10-Not Attempted due to Environmental Limitations-(lack of equipment, weather restraints, etc.). 88-Not Attempted due to Medical Conditions or Safety Concerns. Sit to Lying (QC): 4 (CGA /c leg fur examiner) Lying to Sitting/Side of Bed(Q: 4 (CGA /c leg fur examiner on (L) leg) Sit to Stand (QC): 5 (retrieved FWW) Chair/Qej-kl-Ctvux Xfer(QC): 4 (SBA to setup /c FWW) Toilet Transfer (QC): 4 (SBA /c FWW and grab bar over 3-in-1 commode which patient also uses at home.) Weight Bearing Right Lower Extremity: Right Weight Bearing/Tolerated Left Lower Extremity: Left Weight Bearing/Tolerated Gait Training Walk 150 ft (QC): 4 (SBA 300' x 2) Gait Assistive Device: FWW Stair Training 4 Steps (QC): 4 (CGA /c (B) rails, no cues needed) Exercises Supine ex on looney mat: Bridges x 10, isometric hip adduction/ball squeeze x 10, Heel slides x 10 /c heel on wash cloth (B), SAQ x 10 (B), SLR x 10 min (A) on (L). Standing ex at stairs: tap ups to 4" step x 10 /c 1 FIELD ARTILLERY FIRE CONTROL MAN alternating legs. (R) lateral step ups x 10 with (B) hands on rail NuStep Minutes: 10 NuStep Workload: 2 PT Belt Loop Machine Operator Goals Retirement Goals PT Belt Loop Machine Operator Goals Time Frame: Jul 15, 2023 Roll Left & Right (QC): 6 Sit to Lying (QC): 6 Lying-Sitting on Side/Bed(QC): 6 Sit to Stand (QC): 6 Chair/Xky-uy-Mlmqv Xfer(QC): 6 (/c FWW) Toilet Transfer (QC): 6 (/c FWW) Car Transfer (QC): 6 (/c FWW) Does the Patient Walk: Yes Walk 10 feet (QC): 6 (/c FWW) Walk 50ft with 2 Turns (QC): 6 (/c FWW) Walk 150 ft (QC): 6 (/c FWW) Walking 10ft on Uneven Surface: 6 (/c FWW) 1 Step (curb) (QC): 6 (/c FWW) 4 Steps (QC): 6 (/c rails) 12 Steps (QC): 6 (/c rails) Picking up an Object (QC): 6 (/c barrel coater) Does the Pt use WC or Scooter?: No Wheel 50 feet with 2 turns (QC: 9 Wheel 150 feet: 9 PT Plan Treatment/Plan Treatment Plan: Continue Plan of Care Treatment Plan: Bed Mobility, Education, Functional Activity Chris, Functional Strength, Group Therapy, Gait, Safety, Therapeutic Exercise, Transfers Treatment Duration: Jul 15, 2023 Frequency: At least 5 of 7 days/Wk (IRF) Estimated Hrs Per Day: 1.5 hours per day Patient and/or Family Agrees t: Yes Time Time In: 1315 Time Out: 1415 DATE: Jul 02, 2023 Total Billed Treatment Time: 60 Total Billed Treatment 1, Ex 2. Gt 2 Nat[place] Child PT Jul 02, 2023 16:39
[2023-07-02 20:00] VITALS: BP 111/50
[2023-07-02] MEDS: ACETAMINOPHEN 325 MG TABLET PO PRN (20:31)
[2023-07-02] MEDS: GABAPENTIN 400 MG CAPSULE PO SCH (20:31)
[2023-07-02] MEDS: FLUTICASONE NASAL SPRAY (120 SPRAYS) NS SCH (20:32)
--- NOTE | 2023-07-03 05:25 | PM&R Progress Note ---
Subjective HPI/CC On Admission Date Seen by Provider: Jul 03, 2023 Time Seen by Provider: 12:00 Subjective/Events-last exam 07/03/2023: Patient doing well Bowels are moving Pain is controlled Participation is good Reviewed meds and labs 07/02/2023: Patient doing well Reviewed meds and labs Adding iron and B12 to labs for anemia source Pain is controlled Bowels are moving Working with therapy Review of Systems General: Fatigue, Malaise Musculoskeletal: leg pain Objective Exam Vital Signs Vital Signs Date Time Temp Pulse Resp B/P (MAP) Pulse Ox O2 Delivery O2 Flow Rate FiO2 07/03/23 20:48 36.5 84 16 105/59 (74) 96 Room Air Capillary Refill : General Appearance: WD/WN, Anxious, Chronically ill, Thin HEENT: PERRL/EOMI, Normal ENT Inspection, Pharynx Normal Neck: Full Range of Motion, Normal Inspection, Non Tender, Supple, Carotid Bruit Respiratory: Chest Non Tender, Lungs Clear, Normal Breath Sounds, No Accessory Muscle Use, No Respiratory Distress Cardiovascular: Regular Rate, Rhythm, No Edema, No Gallop, No JVD, No Murmur, Normal Peripheral Pulses Gastrointestinal: Normal Bowel Sounds, No Organomegaly, No Pulsatile Mass, Non Tender, Soft Back: Normal Inspection, No CVA Tenderness, No Vertebral Tenderness Extremity: Normal Capillary Refill, Normal Inspection, Normal Range of Motion, Non Tender, No Calf Tenderness, No Pedal Edema Neurologic/Psychiatric: Alert, Oriented x3, Normal Mood/Affect, passenger car inspector II-XII Norm as Tested, Abnormal Gait, Motor Weakness (bilateral legs) Skin: Normal Color, Warm/Dry Lymphatic: No Adenopathy Results/Procedures Lab Patient resulted labs reviewed. FIM Transfers Therapy Code Descriptions/Definitions Functional [place] Measure: 0=Not Assessed/NA 4=Minimal Assistance 1=Total Assistance 5=Supervision or Setup 2=Maximal Assistance 6=Modified [place] 3=Moderate Assistance 7=Complete IndependenceSCALE: Activities may be completed with or without assistive devices. 2-Zeryjiaezj-hatlihr completes the activity by him/herself with no assistance from a helper. 5-Set-up or Clean-up Assistance-helper sets up or cleans up; patient completes activity. [place] assists only prior to or following the activity. 4-Supervision or Touching Assistance-helper provides verbal cues and/or touching/steadying and/or contact guard assistance as patient completes activity. Assistance may be provided throughout the activity or intermittently. 3-Partial/Moderate Assistance-helper does LESS THAN HALF the effort. [place] lifts, holds or supports trunk or limbs, but provides less than half the effort. 2-Substantial/Maximal Assistance-helper does MORE THAN HALF the effort. [place] lifts or holds trunk or limbs and provides more than half the effort. 9-Teeljmrlb-qobzpy does ALL the effort. Patient does none of the effort to complete the activity. Or, the assistance of 2 or more helpers is required for the patient to complete the activity. If activity was not attempted, code reason: 7-Patient Refused. 9-Not Applicable-not attempted and the patient did not perform the activity before the current illness, exacerbation or injury. 10-Not Attempted due to Environmental Limitations-(lack of equipment, weather restraints, etc.). 88-Not Attempted due to Medical Conditions or Safety Concerns. Roll Left to Right (QC): 3 (Min (A)) Sit to Lying (QC): 4 (CGA /c leg loan expeditor) Sit to Stand (QC): 5 (retrieved FWW) Chair/Gif-ug-Tgmjh Xfer(QC): 4 (SBA to setup /c FWW) Car Transfer (QC): 3 (Min (A) /c LE's) Gait Training Does the Patient Walk?: Yes Walk 10 feet (QC): 4 (/c FWW) Walk 50 ft with 2 Turns(QC): 4 (/c FWW) Walk 150 ft (QC): 4 (SBA 300' x 2) Walking 10ft/uneven surface-QC: 4 (/c FWW) Gait Assistive Device: FWW Wheelchair Training Does the Pt Use a Wheelchair?: No Wheel 50 ft with 2 turns (QC): 9 Wheel 150 ft (QC): 9 Stair Training 1 Step (curb) (QC): 3 (Min (A) /c FWW) 4 Steps (QC): 4 (CGA /c (B) rails, no cues needed) 12 Steps (QC): 88 (due to fatigue) Balance Picking up an Object (QC): 5 (with equipment operation instructor (she has a equipment operation instructor at home that she has used the past 4 weeks).) ADL-Treatment Eating (QC): 6 (per pt report) Oral Hygiene (QC): 4 (standing at sink ) Shower/Bathe Self (QC): 3 (Per pt report, assistance washing/drying BLEs lower legs/feet.) Upper Body Dressing (QC): 5 (per pt report) Lower Body Dressing (QC): 2 (Per pt report, assist threading BLEs into pants, pt able to perform pant hike.) On/Off Footwear (QC): 1 (Per pt report.) Toileting Hygiene (QC): 4 Toilet Transfer (QC): 4 Assessment/Plan Assessment and Plan Assess & Plan/Chief Complaint Assessment: Bilateral hip fractures following a fall with osteoporosis GERD Osteoporosis HTN HLP Plan: PT OT Pain control BM regimen Monitor labs 07/02/2023: Await iron and B12 results Continue aggressive rehab 07/03/2023: Continue pain medication Fall risk Aggressive rehab (1) Bilateral hip fractures JOE ALVAREZ DO Jul 03, 2023 05:24
[2023-07-03 08:00] VITALS: BP 92/53
[2023-07-03] MEDS: ASPIRIN 81 MG CHEWABLE TABLET PO SCH (08:29)
[2023-07-03] MEDS: CALCIUM CARBONATE 600 MG +VITAMIN D TABLET PO SCH (08:29)
[2023-07-03] MEDS: LORATADINE 10 MG TABLET PO SCH (08:29)
[2023-07-03] MEDS: PANTOPRAZOLE 40 MG TABLET PO SCH (08:29)
[2023-07-03] MEDS: SENNA W/DOCUSATE TABLET PO SCH ×2 (09:57→21:34)
[2023-07-03] MEDS: DOCUSATE SODIUM 100 MG CAPSULE PO SCH ×2 (09:57→21:33)
[2023-07-03 10:01] VITALS: BP 108/69
[2023-07-03] MEDS ORDERED: CYANOCOBALAMIN 1000 MCG/ML 1 ML VIAL IM SCH (10:09)
--- NOTE | 2023-07-03 10:30 | Occupational Ther Daily Note ---
OT Current Status-Daily Note Subjective Pt received sitting in recliner. Pt very pleasant and willing to participate in therapy. Pain Numeric Pain Scale: 0-No Pain Mental Status/Objective Patient Orientation: Person, Place, Time, Situation Attachments: IV ADL-Treatment Therapy Code Descriptions/Definitions Functional [place] Measure: 0=Not Assessed/NA 4=Minimal Assistance 1=Total Assistance 5=Supervision or Setup 2=Maximal Assistance 6=Modified [place] 3=Moderate Assistance 7=Complete IndependenceSCALE: Activities may be completed with or without assistive devices. 4-Yilnepmwjc-atdvkeo completes the activity by him/herself with no assistance from a helper. 5-Set-up or Clean-up Assistance-helper sets up or cleans up; patient completes activity. [place] assists only prior to or following the activity. 4-Supervision or Touching Assistance-helper provides verbal cues and/or touch ing/steadying and/or contact guard assistance as patient completes activity. Assistance may be provided throughout the activity or intermittently. 3-Partial/Moderate Assistance-helper does LESS THAN HALF the effort. [place] lifts, holds or supports trunk or limbs, but provides less than half the effort. 2-Substantial/Maximal Assistance-helper does MORE THAN HALF the effort. [place] lifts or holds trunk or limbs and provides more than half the effort. 8-Kznkeraxi-jcmpoo does ALL the effort. Patient does none of the effort to complete the activity. Or, the assistance of 2 or more helpers is required for the patient to complete the activity. If activity was not attempted, code reason: 7-Patient Refused. 9-Not Applicable-not attempted and the patient did not perform the activity before the current illness, exacerbation or injury. 10-Not Attempted due to Environmental Limitations-(lack of equipment, weather restraints, etc.). 88-Not Attempted due to Medical Conditions or Safety Concerns. Oral Hygiene (QC): 4 Lower Body Dressing (QC): 4 (to pull up brief and pants after toileting ) Toileting Hygiene (QC): 4 Toilet Transfer (QC): 4 Other Treatment Pt completed functional dynamic standing activity and reaching outside of her base of support with supervision and FWW for ~20 minutes and no rest break required. Pt completed environmental navigation and community mobility activity with supervision and FWW, requiring no min cues for safety. Education OT Patient Education: Correct positioning, Energy conservation, Modified ADL techniques, Progress toward Goal/Update tx plan, Purpose of tx/functional activities, Reviewed precautions, Rehab process, Safety issues, Transfer techniques, Use of adapted equipment Teaching Recipient: Patient Teaching Methods: Demonstration, Discussion Response to Teaching: Verbalize Understanding, Return Demonstration OT Alf Goals Alf Goals Time Frame: Jul 17, 2023 Acute change in mental status: 0 Inattention: 0 Disorganized thinkin Altered level of consciousness: 0 Eating (QC): 6 Oral Hygiene (QC): 6 Toileting Hygiene (QC): 6 Shower/Bathe Self (QC): 6 Upper Body Dressing (QC): 6 Lower Body Dressing (QC): 6 On/Off Footwear (QC): 6 Additional Goals: 1-Demonstrate ADL Tasks, 2-Verbalize Understanding, 3-ImproveStrength/Chris 1=Demonstrate adherence to instructed precautions during ADL tasks. 2=Patient will verbalize/demonstrate understanding of assistive devices/modifications for ADL. 3=Patient will improve strength/tolerance for activity to enable patient to perform ADL's. OT Education/Plan Problem List/Assessment Assessment: Decreased Activ Tolerance, Decreased Safety Aware, Decreased UE Strength, Impaired Bed Mobility, Impaired Coordination, Impaired Funct Balance, Impaired I ADL's, Impaired Self-Care Skills Discharge Recommendations Plan/Recommendations: Continue POC Treatment Plan/Plan of Care Treatment,Training & Education: Yes Patient would benefit from OT for education, treatment and training to promote independence in ADL's, mobility, safety and/or upper extremity function for ADL's. Plan of Care: ADL Retraining, Functional Mobility, Group Exercise/Act as Ind, UE Funct Exercise/Act Treatment Duration: Jul 17, 2023 Frequency: At least 5 of 7 days/Wk (IRF) Estimated Hrs Per Day: 1.5 hours per day Agreement: Yes Rehab Potential: Good Time Start Time: 09:00 Stop Time: 10:00 DATE: Jul 03, 2023 Total Time Billed (hr/min): 60 Billed Treatment Time 1, ADL 1, FA 3 Abby Molina OTR/L Jul 03, 2023 10:29
--- NOTE | 2023-07-03 13:15 | Physical Therapy Daily Note ---
PT Daily Note-Current Subjective Patient not having c/o pain, just some tightness in her legs and ankle swelling - she is wearing compression socks this a.m. Pain Section J - Health Conditions 1. Rarely or not at all 2. Occasionally 3. Frequently 4. Almost constantly 8. Unable to answer Pain Effect on Sleep: 1 Pain Interference with Therapy: 1 Pain Interference w/Day-to-Day: 1 Transfers SCALE: Activities may be completed with or without assistive devices. 2-Wahyrnvrva-enwsqpm completes the activity by him/herself with no assistance from a helper. 5-Set-up or Clean-up Assistance-helper sets up or cleans up; patient completes activity. [place] assists only prior to or following the activity. 4-Supervision or Touching Assistance-helper provides verbal cues and/or touching/steadying and/or contact guard assistance as patient completes activity. Assistance may be provided throughout the activity or intermittently. 3-Partial/Moderate Assistance-helper does LESS THAN HALF the effort. [place] lifts, holds or supports trunk or limbs, but provides less than half the effort. 2-Substantial/Maximal Assistance-helper does MORE THAN HALF the effort. [place] lifts or holds trunk or limbs and provides more than half the effort. 6-Ufmtmlkno-xaucnz does ALL the effort. Patient does none of the effort to complete the activity. Or, the assistance of 2 or more helpers is required for the patient to complete the activity. If activity was not attempted, code reason: 7-Patient Refused. 9-Not Applicable-not attempted and the patient did not perform the activity before the current illness, exacerbation or injury. 10-Not Attempted due to Environmental Limitations-(lack of equipment, weather restraints, etc.). 88-Not Attempted due to Medical Conditions or Safety Concerns. Sit to Lying (QC): 4 (prn v.c. /c leg power operator) Lying to Sitting/Side of Bed(Q: 4 (prn v.c. /c leg power operator) Sit to Stand (QC): 5 (to retrieve walker only) Chair/Pxn-as-Pprfr Xfer(QC): 6 (/c FWW) Toilet Transfer (QC): 5 Weight Bearing Right Lower Extremity: Right Weight Bearing/Tolerated Left Lower Extremity: Left Weight Bearing/Tolerated Gait Training Does the Patient Walk?: Yes Distance: 300', 150' Walk 150 ft (QC): 6 Gait Assistive Device: FWW Stair Training 4 Steps (QC): 4 (SBA-CGA /c (B) rails) Exercises Mat ex: AP x 20 (B) with cues for full ankle excursion, QS x 10 x :05 (B), SAQ x 10 (B), Heel slides with heel on towel x 10 (B), Hip abduction x 10 (R), x 10 (L) /c towel under heel, SLR x 10 (R) /s assist, SLR x 10 (L) with min (A) but improving strength. Bridges x 10. Isometric ball squeeze/hip adduction in hooklying x 10. Standing exercise in // bars: standing on blue foam, heel/toe raises x 20, hi- knee march x 10 (B), ham curls x 10 (B). 2" lateral step up to (L) /c (R) hip abd x 10, 4" lateral step up to (R) /c (L) hip abd x 10. PT Hot Stamp Operator Goals Skilled Nursing Goals PT Hot Stamp Operator Goals Time Frame: Jul 15, 2023 Roll Left & Right (QC): 6 Sit to Lying (QC): 6 Lying-Sitting on Side/Bed(QC): 6 Sit to Stand (QC): 6 Chair/Foh-lx-Awxzl Xfer(QC): 6 (/c FWW) Toilet Transfer (QC): 6 (/c FWW) Car Transfer (QC): 6 (/c FWW) Does the Patient Walk: Yes Walk 10 feet (QC): 6 (/c FWW) Walk 50ft with 2 Turns (QC): 6 (/c FWW) Walk 150 ft (QC): 6 (/c FWW) Walking 10ft on Uneven Surface: 6 (/c FWW) 1 Step (curb) (QC): 6 (/c FWW) 4 Steps (QC): 6 (/c rails) 12 Steps (QC): 6 (/c rails) Picking up an Object (QC): 6 (/c optical instruments supervisor) Does the Pt use WC or Scooter?: No Wheel 50 feet with 2 turns (QC: 9 Wheel 150 feet: 9 PT Plan Treatment/Plan Treatment Plan: Continue Plan of Care Treatment Plan: Bed Mobility, Education, Functional Activity Chris, Functional Strength, Group Therapy, Gait, Safety, Therapeutic Exercise, Transfers Treatment Duration: Jul 15, 2023 Frequency: At least 5 of 7 days/Wk (IRF) Estimated Hrs Per Day: 1.5 hours per day Patient and/or Family Agrees t: Yes Time Time In: 1100 Time Out: 1145 DATE: Jul 03, 2023 Total Billed Treatment Time: 45 Total Billed Treatment 1, 2EX, 1 GT Natividad Child PT Jul 03, 2023 13:15
--- NOTE | 2023-07-03 15:28 | Therapy Group Daily Note ---
Therapy Daily Group Note Patient Education Topic Fall Prevention, Energy Cons, Exercises Exercises LE Seated Exercise, ROM, Stretching, Gross Motor, UE Exercise Session Ratio (pt:therapist): 5:1 Goal of Session: Energy Conservation Tech., UE/LE Strengthing Goal Met for this Session: Yes Pt Benefit of Group: Contributions to Others, Increased Functional Safety, Increased Functional Strength, Recognition of Peers, Socialization Other/Notes OT group consisted of introductions (name, place living, favorite holiday), socialization, BUE dowel exercises seated, and education on benefits of e xercises. Pt introduced self appropriately and actively listened to peers. Pt able to complete BUE dowel exercises, 2x10 reps with minimal cues. Pt then able to use dowel jaylon in UEs to "bat" balloons and balls around the group, and used BLEs to "kick" balls around group. Pt demonstrated understanding of educational topic. After therapy, pt up in recliner, call light in reach and all needs met. Chair alarm activated. Start Time: 13:00 Stop Time: 14:00 Total Billed Treatment Time: 60 Total Billed Treatment 1, GRP Abby Molina OTR/L Jul 03, 2023 15:28
[2023-07-03 20:48] VITALS: BP 105/59
[2023-07-03] MEDS: GABAPENTIN 400 MG CAPSULE PO SCH (21:11)
[2023-07-03] MEDS: ACETAMINOPHEN 325 MG TABLET PO PRN (21:11)
[2023-07-03] MEDS: FLUTICASONE NASAL SPRAY (120 SPRAYS) NS SCH (21:46)
--- NOTE | 2023-07-04 06:25 | PM&R Progress Note ---
Subjective HPI/CC On Admission Date Seen by Provider: Jul 04, 2023 Time Seen by Provider: 12:00 Subjective/Events-last exam 07/04/2023: Much improved Pain controlled Spouse of 57 years is at bedside BM+ 07/03/2023: Patient doing well Bowels are moving Pain is controlled Participation is good Reviewed meds and labs 07/02/2023: Patient doing well Reviewed meds and labs Adding iron and B12 to labs for anemia source Pain is controlled Bowels are moving Working with therapy Review of Systems General: Fatigue, Malaise Objective Exam Vital Signs Vital Signs Date Time Temp Pulse Resp B/P (MAP) Pulse Ox O2 Delivery O2 Flow Rate FiO2 07/04/23 09:30 Room Air 07/04/23 07:30 36.7 86 16 100/56 (71) 97 Capillary Refill : General Appearance: WD/WN, Anxious, Chronically ill, Thin HEENT: PERRL/EOMI, Normal ENT Inspection, Pharynx Normal Neck: Full Range of Motion, Normal Inspection, Non Tender, Supple, Carotid Bruit Respiratory: Chest Non Tender, Lungs Clear, Normal Breath Sounds, No Accessory Muscle Use, No Respiratory Distress Cardiovascular: Regular Rate, Rhythm, No Edema, No Gallop, No JVD, No Murmur, Normal Peripheral Pulses Gastrointestinal: Normal Bowel Sounds, No Organomegaly, No Pulsatile Mass, Non Tender, Soft Back: Normal Inspection, No CVA Tenderness, No Vertebral Tenderness Extremity: Normal Capillary Refill, Normal Inspection, Normal Range of Motion, Non Tender, No Calf Tenderness, No Pedal Edema Neurologic/Psychiatric: Alert, Oriented x3, Normal Mood/Affect, escort vehicle driver II-XII Norm as Tested, Abnormal Gait, Motor Weakness (bilateral legs) Skin: Normal Color, Warm/Dry Lymphatic: No Adenopathy Results/Procedures Lab Patient resulted labs reviewed. FIM Transfers Therapy Code Descriptions/Definitions Functional [place] Measure: 0=Not Assessed/NA 4=Minimal Assistance 1=Total Assistance 5=Supervision or Setup 2=Maximal Assistance 6=Modified [place] 3=Moderate Assistance 7=Complete IndependenceSCALE: Activities may be completed with or without assistive devices. 7-Yodfdufcqc-wnbxfts completes the activity by him/herself with no assistance from a helper. 5-Set-up or Clean-up Assistance-helper sets up or cleans up; patient completes activity. [place] assists only prior to or following the activity. 4-Supervision or Touching Assistance-helper provides verbal cues and/or touching/steadying and/or contact guard assistance as patient completes activity. Assistance may be provided throughout the activity or intermittently. 3-Partial/Moderate Assistance-helper does LESS THAN HALF the effort. [place] lifts, holds or supports trunk or limbs, but provides less than half the effort. 2-Substantial/Maximal Assistance-helper does MORE THAN HALF the effort. [place] lifts or holds trunk or limbs and provides more than half the effort. 7-Idrbgeioc-mxrrlw does ALL the effort. Patient does none of the effort to complete the activity. Or, the assistance of 2 or more helpers is required for the patient to complete the activity. If activity was not attempted, code reason: 7-Patient Refused. 9-Not Applicable-not attempted and the patient did not perform the activity before the current illness, exacerbation or injury. 10-Not Attempted due to Environmental Limitations-(lack of equipment, weather restraints, etc.). 88-Not Attempted due to Medical Conditions or Safety Concerns. Roll Left to Right (QC): 3 (Min (A)) Sit to Lying (QC): 4 (prn v.c. /c leg speech language pathologist prn) Sit to Stand (QC): 5 (to retrieve walker only) Chair/Efb-aa-Pxujp Xfer(QC): 6 (/c FWW) Car Transfer (QC): 3 (Min (A) /c LE's) Gait Training Does the Patient Walk?: Yes Distance: 300', 150' Walk 10 feet (QC): 4 (/c FWW) Walk 50 ft with 2 Turns(QC): 4 (/c FWW) Walk 150 ft (QC): 6 Walking 10ft/uneven surface-QC: 4 (/c FWW) Gait Assistive Device: FWW Wheelchair Training Does the Pt Use a Wheelchair?: No Wheel 50 ft with 2 turns (QC): 9 Wheel 150 ft (QC): 9 Stair Training 1 Step (curb) (QC): 3 (Min (A) /c FWW) 4 Steps (QC): 4 (SBA-CGA /c (B) rails) 12 Steps (QC): 88 (due to fatigue) Balance Picking up an Object (QC): 5 (with zinc miner blasting (she has a zinc miner blasting at home that she has used the past 4 weeks).) ADL-Treatment Eating (QC): 6 (per pt report) Oral Hygiene (QC): 4 Shower/Bathe Self (QC): 3 (Per pt report, assistance washing/drying BLEs lower legs/feet.) Upper Body Dressing (QC): 5 (per pt report) Lower Body Dressing (QC): 4 (to pull up brief and pants after toileting ) On/Off Footwear (QC): 1 (Per pt report.) Toileting Hygiene (QC): 4 Toilet Transfer (QC): 4 Assessment/Plan Assessment and Plan Assess & Plan/Chief Complaint Assessment: Bilateral hip fractures following a fall with osteoporosis GERD Osteoporosis HTN HLP Plan: PT OT Pain control BM regimen Monitor labs 07/02/2023: Await iron and B12 results Continue aggressive rehab 07/03/2023: Continue pain medication Fall risk Aggressive rehab 07/04/2023: Pain control BM regimen (1) Bilateral hip fractures JOE ALVAREZ DO Jul 04, 2023 06:25
[2023-07-04 07:30] VITALS: BP 100/56
[2023-07-04] MEDS: CALCIUM CARBONATE 600 MG +VITAMIN D TABLET PO SCH (09:34)
[2023-07-04] MEDS: LORATADINE 10 MG TABLET PO SCH (09:34)
[2023-07-04] MEDS: ASPIRIN 81 MG CHEWABLE TABLET PO SCH (09:34)
[2023-07-04] MEDS: PANTOPRAZOLE 40 MG TABLET PO SCH (09:34)
[2023-07-04] MEDS: DOCUSATE SODIUM 100 MG CAPSULE PO SCH ×2 (09:36→19:54)
[2023-07-04] MEDS: SENNA W/DOCUSATE TABLET PO SCH ×2 (09:36→19:54)
--- NOTE | 2023-07-04 10:04 | Occupational Ther Daily Note ---
OT Current Status-Daily Note Subjective Pt alert, sitting in recliner. Pt agrees to therapy. No c/o pain. Pt unavailable at time of treatment 07/03/23, minutes obtained this date(07/04/23). Mental Status/Objective Patient Orientation: Person, Place, Time, Situation ADL-Treatment Pt independent with sit to stand. Independent with ambulating using FWW to bathroom from recliner. Independent with toilet transfer and toileting hygiene/clothing manipulation. Independent standing at sink to wash hands and complete oral care. Pt then able to ambulate around 2nd floor/ARU 1 full round then 1/2 round without breaks. After therapy, pt sitting in recliner with call light/phone in reach. All needs met in room. Therapy Code Descriptions/Definitions Functional [place] Measure: 0=Not Assessed/NA 4=Minimal Assistance 1=Total Assistance 5=Supervision or Setup 2=Maximal Assistance 6=Modified [place] 3=Moderate Assistance 7=Complete IndependenceSCALE: Activities may be completed with or without assistive devices. 2-Pdfodmiczf-kmyvnlp completes the activity by him/herself with no assistance from a helper. 5-Set-up or Clean-up Assistance-helper sets up or cleans up; patient completes activity. [place] assists only prior to or following the activity. 4-Supervision or Touching Assistance-helper provides verbal cues and/or fabiana teddy/steadying and/or contact guard assistance as patient completes activity. Assistance may be provided throughout the activity or intermittently. 3-Partial/Moderate Assistance-helper does LESS THAN HALF the effort. [place] lifts, holds or supports trunk or limbs, but provides less than half the effort. 2-Substantial/Maximal Assistance-helper does MORE THAN HALF the effort. [place] lifts or holds trunk or limbs and provides more than half the effort. 9-Cxjqreiyl-hisofr does ALL the effort. Patient does none of the effort to complete the activity. Or, the assistance of 2 or more helpers is required for the patient to complete the activity. If activity was not attempted, code reason: 7-Patient Refused. 9-Not Applicable-not attempted and the patient did not perform the activity before the current illness, exacerbation or injury. 10-Not Attempted due to Environmental Limitations-(lack of equipment, weather restraints, etc.). 88-Not Attempted due to Medical Conditions or Safety Concerns. Oral Hygiene (QC): 6 Toileting Hygiene (QC): 6 Toilet Transfer (QC): 6 OT Shelter Goals Inventory Auditor Goals Time Frame: Jul 17, 2023 Acute change in mental status: 0 Inattention: 0 Disorganized thinkin Altered level of consciousness: 0 Eating (QC): 6 Oral Hygiene (QC): 6 Toileting Hygiene (QC): 6 Shower/Bathe Self (QC): 6 Upper Body Dressing (QC): 6 Lower Body Dressing (QC): 6 On/Off Footwear (QC): 6 Additional Goals: 1-Demonstrate ADL Tasks, 2-Verbalize Understanding, 3- ImproveStrength/Chris 1=Demonstrate adherence to instructed precautions during ADL tasks. 2=Patient will verbalize/demonstrate understanding of assistive devices/modifications for ADL. 3=Patient will improve strength/tolerance for activity to enable patient to perform ADL's. OT Education/Plan Problem List/Assessment Assessment: Decreased Activ Tolerance, Impaired Self-Care Skills Discharge Recommendations Plan/Recommendations: Continue POC Treatment Plan/Plan of Care Patient would benefit from OT for education, treatment and training to promote independence in ADL's, mobility, safety and/or upper extremity function for ADL's. Plan of Care: ADL Retraining, Functional Mobility, Group Exercise/Act as Ind, UE Funct Exercise/Act Treatment Duration: Jul 17, 2023 Frequency: At least 5 of 7 days/Wk (IRF) Estimated Hrs Per Day: 1.5 hours per day Agreement: Yes Rehab Potential: Good Time Start Time: 10:00 Stop Time: 10:25 DATE: Jul 04, 2023 Total Time Billed (hr/min): 25 Billed Treatment Time 1 visit-ADL 1 (15 min) FA 1 (10 min) BECKY ARZOLA Jul 04, 2023 10:04
[2023-07-04] MEDS: FLUTICASONE NASAL SPRAY (120 SPRAYS) NS SCH (20:20)
[2023-07-04] MEDS: GABAPENTIN 400 MG CAPSULE PO SCH (20:20)
[2023-07-04] MEDS: MELATONIN 3 MG TABLET PO PRN (21:02)
[2023-07-04 21:39] VITALS: BP 101/57
[2023-07-05 08:00] VITALS: BP 95/50
[2023-07-05] MEDS: LORATADINE 10 MG TABLET PO SCH (08:55)
[2023-07-05] MEDS: PANTOPRAZOLE 40 MG TABLET PO SCH (08:55)
[2023-07-05] MEDS: DOCUSATE SODIUM 100 MG CAPSULE PO SCH ×2 (08:55→19:49)
[2023-07-05] MEDS: CALCIUM CARBONATE 600 MG +VITAMIN D TABLET PO SCH (08:55)
[2023-07-05] MEDS: ASPIRIN 81 MG CHEWABLE TABLET PO SCH (08:55)
[2023-07-05] MEDS: SENNA W/DOCUSATE TABLET PO SCH ×2 (08:57→19:50)
[2023-07-05 09:51] VITALS: BP 98/55
--- NOTE | 2023-07-05 13:38 | PM&R Progress Note ---
Subjective HPI/CC On Admission Date Seen by Provider: Jul 05, 2023 Time Seen by Provider: 08:15 Subjective/Events-last exam 07/05/2023: Patient doing well Denies any pain Ambulating around pretty well No falls 07/04/2023: Much improved Pain controlled Spouse of 57 years is at bedside BM+ 07/03/2023: Patient doing well Bowels are moving Pain is controlled Participation is good Reviewed meds and labs 07/02/2023: Patient doing well Reviewed meds and labs Adding iron and B12 to labs for anemia source Pain is controlled Bowels are moving Working with therapy Review of Systems General: Fatigue, Malaise Objective Exam Vital Signs Vital Signs Date Time Temp Pulse Resp B/P (MAP) Pulse Ox O2 Delivery O2 Flow Rate FiO2 07/05/23 09:55 Room Air 07/05/23 09:51 74 98/55 (69) 07/05/23 08:00 36.7 15 97 Capillary Refill : General Appearance: WD/WN, Anxious, Chronically ill, Thin HEENT: PERRL/EOMI, Normal ENT Inspection, Pharynx Normal Neck: Full Range of Motion, Normal Inspection, Non Tender, Supple, Carotid Bruit Respiratory: Chest Non Tender, Lungs Clear, Normal Breath Sounds, No Accessory Muscle Use, No Respiratory Distress Cardiovascular: Regular Rate, Rhythm, No Edema, No Gallop, No JVD, No Murmur, Normal Peripheral Pulses Gastrointestinal: Normal Bowel Sounds, No Organomegaly, No Pulsatile Mass, Non Tender, Soft Back: Normal Inspection, No CVA Tenderness, No Vertebral Tenderness Extremity: Normal Capillary Refill, Normal Inspection, Normal Range of Motion, Non Tender, No Calf Tenderness, No Pedal Edema Neurologic/Psychiatric: Alert, Oriented x3, Normal Mood/Affect, electronic warfare specialist II-XII Norm as Tested, Abnormal Gait, Motor Weakness (bilateral legs) Skin: Normal Color, Warm/Dry Lymphatic: No Adenopathy Results/Procedures Lab Patient resulted labs reviewed. FIM Transfers Therapy Code Descriptions/Definitions Functional [place] Measure: 0=Not Assessed/NA 4=Minimal Assistance 1=Total Assistance 5=Supervision or Setup 2=Maximal Assistance 6=Modified [place] 3=Moderate Assistance 7=Complete IndependenceSCALE: Activities may be completed with or without assistive devices. 3-Rtoicqubin-dmnfwgd completes the activity by him/herself with no assistance from a helper. 5-Set-up or Clean-up Assistance-helper sets up or cleans up; patient completes activity. [place] assists only prior to or following the activity. 4-Supervision or Touching Assistance-helper provides verbal cues and/or touching/steadying and/or contact guard assistance as patient completes activity. Assistance may be provided throughout the activity or intermittently. 3-Partial/Moderate Assistance-helper does LESS THAN HALF the effort. [place] lifts, holds or supports trunk or limbs, but provides less than half the effort. 2-Substantial/Maximal Assistance-helper does MORE THAN HALF the effort. [place] lifts or holds trunk or limbs and provides more than half the effort. 7-Tytkksdxi-erfylg does ALL the effort. Patient does none of the effort to complete the activity. Or, the assistance of 2 or more helpers is required for the patient to complete the activity. If activity was not attempted, code reason: 7-Patient Refused. 9-Not Applicable-not attempted and the patient did not perform the activity before the current illness, exacerbation or injury. 10-Not Attempted due to Environmental Limitations-(lack of equipment, weather restraints, etc.). 88-Not Attempted due to Medical Conditions or Safety Concerns. Roll Left to Right (QC): 3 (Min (A)) Sit to Lying (QC): 4 (prn v.c. /c leg beef splitter) Sit to Stand (QC): 5 (to retrieve walker only) Chair/Ccb-et-Hfjru Xfer(QC): 6 (/c FWW) Car Transfer (QC): 3 (Min (A) /c LE's) Gait Training Does the Patient Walk?: Yes Distance: 300', 150' Walk 10 feet (QC): 4 (/c FWW) Walk 50 ft with 2 Turns(QC): 4 (/c FWW) Walk 150 ft (QC): 6 Walking 10ft/uneven surface-QC: 4 (/c FWW) Gait Assistive Device: FWW Wheelchair Training Does the Pt Use a Wheelchair?: No Wheel 50 ft with 2 turns (QC): 9 Wheel 150 ft (QC): 9 Stair Training 1 Step (curb) (QC): 3 (Min (A) /c FWW) 4 Steps (QC): 4 (SBA-CGA /c (B) rails) 12 Steps (QC): 88 (due to fatigue) Balance Picking up an Object (QC): 5 (with wind turbine machinist (she has a wind turbine machinist at home that she has used the past 4 weeks).) ADL-Treatment Eating (QC): 6 (per pt report) Oral Hygiene (QC): 6 Shower/Bathe Self (QC): 3 (Per pt report, assistance washing/drying BLEs lower legs/feet.) Upper Body Dressing (QC): 5 (per pt report) Lower Body Dressing (QC): 4 (to pull up brief and pants after toileting ) On/Off Footwear (QC): 1 (Per pt report.) Toileting Hygiene (QC): 6 Toilet Transfer (QC): 6 Assessment/Plan Assessment and Plan Assess & Plan/Chief Complaint Assessment: Bilateral hip fractures following a fall with osteoporosis GERD Osteoporosis HTN HLP Plan: PT OT Pain control BM regimen Monitor labs 07/02/2023: Await iron and B12 results Continue aggressive rehab 07/03/2023: Continue pain medication Fall risk Aggressive rehab 07/04/2023: Pain control BM regimen 07/05/2023: Supportive care Monitor closely (1) Bilateral hip fractures JOE ALVAREZ DO Jul 05, 2023 13:38
[2023-07-05 20:30] VITALS: BP 115/63
[2023-07-05] MEDS: GABAPENTIN 400 MG CAPSULE PO SCH (21:02)
[2023-07-05] MEDS: MELATONIN 3 MG TABLET PO PRN (21:02)
[2023-07-05] MEDS: FLUTICASONE NASAL SPRAY (120 SPRAYS) NS SCH (21:03)
--- NOTE | 2023-07-06 05:15 | PM&R Progress Note ---
Subjective HPI/CC On Admission Date Seen by Provider: Jul 06, 2023 Time Seen by Provider: 09:00 Subjective/Events-last exam 07/06/2023: Much improved ambulation Reviewed meds and labs No falls Pain controlled 07/05/2023: Patient doing well Denies any pain Ambulating around pretty well No falls 07/04/2023: Much improved Pain controlled Spouse of 57 years is at bedside BM+ 07/03/2023: Patient doing well Bowels are moving Pain is controlled Participation is good Reviewed meds and labs 07/02/2023: Patient doing well Reviewed meds and labs Adding iron and B12 to labs for anemia source Pain is controlled Bowels are moving Working with therapy Review of Systems General: Fatigue, Malaise Objective Exam Vital Signs Vital Signs Date Time Temp Pulse Resp B/P (MAP) Pulse Ox O2 Delivery O2 Flow Rate FiO2 07/06/23 20:20 Room Air 07/06/23 19:56 37.1 90 16 120/74 (89) 97 Capillary Refill : General Appearance: WD/WN, Anxious, Chronically ill, Thin HEENT: PERRL/EOMI, Normal ENT Inspection, Pharynx Normal Neck: Full Range of Motion, Normal Inspection, Non Tender, Supple, Carotid Bruit Respiratory: Chest Non Tender, Lungs Clear, Normal Breath Sounds, No Accessory Muscle Use, No Respiratory Distress Cardiovascular: Regular Rate, Rhythm, No Edema, No Gallop, No JVD, No Murmur, Normal Peripheral Pulses Gastrointestinal: Normal Bowel Sounds, No Organomegaly, No Pulsatile Mass, Non Tender, Soft Back: Normal Inspection, No CVA Tenderness, No Vertebral Tenderness Extremity: Normal Capillary Refill, Normal Inspection, Normal Range of Motion, Non Tender, No Calf Tenderness, No Pedal Edema Neurologic/Psychiatric: Alert, Oriented x3, Normal Mood/Affect, career guidance technician II-XII Norm as Tested, Abnormal Gait, Motor Weakness (bilateral legs) Skin: Normal Color, Warm/Dry Lymphatic: No Adenopathy Results/Procedures Lab Patient resulted labs reviewed. FIM Transfers Therapy Code Descriptions/Definitions Functional [place] Measure: 0=Not Assessed/NA 4=Minimal Assistance 1=Total Assistance 5=Supervision or Setup 2=Maximal Assistance 6=Modified [place] 3=Moderate Assistance 7=Complete IndependenceSCALE: Activities may be completed with or without assistive devices. 8-Qczvcpeacl-ghooysm completes the activity by him/herself with no assistance from a helper. 5-Set-up or Clean-up Assistance-helper sets up or cleans up; patient completes activity. [place] assists only prior to or following the activity. 4-Supervision or Touching Assistance-helper provides verbal cues and/or touching/steadying and/or contact guard assistance as patient completes activity. Assistance may be provided throughout the activity or intermittently. 3-Partial/Moderate Assistance-helper does LESS THAN HALF the effort. [place] lifts, holds or supports trunk or limbs, but provides less than half the effort. 2-Substantial/Maximal Assistance-helper does MORE THAN HALF the effort. [place] lifts or holds trunk or limbs and provides more than half the effort. 3-Bwypapqpe-effaef does ALL the effort. Patient does none of the effort to complete the activity. Or, the assistance of 2 or more helpers is required for the patient to complete the activity. If activity was not attempted, code reason: 7-Patient Refused. 9-Not Applicable-not attempted and the patient did not perform the activity before the current illness, exacerbation or injury. 10-Not Attempted due to Environmental Limitations-(lack of equipment, weather restraints, etc.). 88-Not Attempted due to Medical Conditions or Safety Concerns. Roll Left to Right (QC): 3 (Min (A)) Sit to Lying (QC): 4 (prn v.c. /c leg injection molding process technician) Sit to Stand (QC): 5 (to retrieve walker only) Chair/Fva-dp-Visxu Xfer(QC): 6 (/c FWW) Car Transfer (QC): 3 (Min (A) /c LE's) Gait Training Does the Patient Walk?: Yes Distance: 300', 150' Walk 10 feet (QC): 4 (/c FWW) Walk 50 ft with 2 Turns(QC): 4 (/c FWW) Walk 150 ft (QC): 6 Walking 10ft/uneven surface-QC: 4 (/c FWW) Gait Assistive Device: FWW Wheelchair Training Does the Pt Use a Wheelchair?: No Wheel 50 ft with 2 turns (QC): 9 Wheel 150 ft (QC): 9 Stair Training 1 Step (curb) (QC): 3 (Min (A) /c FWW) 4 Steps (QC): 4 (SBA-CGA /c (B) rails) 12 Steps (QC): 88 (due to fatigue) Balance Picking up an Object (QC): 5 (with computer applications engineer (she has a computer applications engineer at home that she has used the past 4 weeks).) ADL-Treatment Eating (QC): 6 (per pt report) Oral Hygiene (QC): 6 Shower/Bathe Self (QC): 3 (Per pt report, assistance washing/drying BLEs lower legs/feet.) Upper Body Dressing (QC): 5 (per pt report) Lower Body Dressing (QC): 4 (to pull up brief and pants after toileting ) On/Off Footwear (QC): 1 (Per pt report.) Toileting Hygiene (QC): 6 Toilet Transfer (QC): 6 Assessment/Plan Assessment and Plan Assess & Plan/Chief Complaint Assessment: Bilateral hip fractures following a fall with osteoporosis GERD Osteoporosis HTN HLP Plan: PT OT Pain control BM regimen Monitor labs 07/02/2023: Await iron and B12 results Continue aggressive rehab 07/03/2023: Continue pain medication Fall risk Aggressive rehab 07/04/2023: Pain control BM regimen 07/05/2023: Supportive care Monitor closely 07/06/2023: Monitor pain Continue ambulation (1) Bilateral hip fractures JOE ALVAREZ DO Jul 06, 2023 05:15
[2023-07-06 08:00] VITALS: BP 100/65
[2023-07-06] MEDS: PANTOPRAZOLE 40 MG TABLET PO SCH (08:05)
[2023-07-06] MEDS: ASPIRIN 81 MG CHEWABLE TABLET PO SCH (08:05)
[2023-07-06] MEDS: DOCUSATE SODIUM 100 MG CAPSULE PO SCH ×2 (08:05→19:54)
[2023-07-06] MEDS: LORATADINE 10 MG TABLET PO SCH (08:05)
[2023-07-06] MEDS: CALCIUM CARBONATE 600 MG +VITAMIN D TABLET PO SCH (08:05)
[2023-07-06] MEDS: SENNA W/DOCUSATE TABLET PO SCH ×2 (08:06→19:54)
--- NOTE | 2023-07-06 14:18 | Occupational Ther Daily Note ---
OT Current Status-Daily Note Subjective Pt received sitting in recliner. Pt very pleasant and willing to participate in therapy. Pt reports that she is feeling anxious about being discharged soon because she feels she is not ready. Therapist and pt discussed her fears and created plan to ensure pt feels confident by discharge. Pain Numeric Pain Scale: 2 Location: Incisional Location Body Site: Hip Pain Description: Dull Mental Status/Objective Patient Orientation: Person, Place, Time, Situation ADL-Treatment Therapy Code Descriptions/Definitions Functional [place] Measure: 0=Not Assessed/NA 4=Minimal Assistance 1=Total Assistance 5=Supervision or Setup 2=Maximal Assistance 6=Modified [place] 3=Moderate Assistance 7=Complete IndependenceSCALE: Activities may be completed with or without assistive devices. 9-Vsomwyasbu-ihylqpr completes the activity by him/herself with no assistance from a helper. 5-Set-up or Clean-up Assistance-helper sets up or cleans up; patient completes activity. [place] assists only prior to or following the activity. 4-Supervision or Touching Assistance-helper provides verbal cues and/or touching/steadying and/or contact guard assistance as patient completes activity. Assistance may be provided throughout the activity or intermittently. 3-Partial/Moderate Assistance-helper does LESS THAN HALF the effort. [place] lifts, holds or supports trunk or limbs, but provides less than half the effort. 2-Substantial/Maximal Assistance-helper does MORE THAN HALF the effort. [place] lifts or holds trunk or limbs and provides more than half the effort. 0-Frtymmbij-pscytl does ALL the effort. Patient does none of the effort to complete the activity. Or, the assistance of 2 or more helpers is required for the patient to complete the activity. If activity was not attempted, code reason: 7-Patient Refused. 9-Not Applicable-not attempted and the patient did not perform the activity before the current illness, exacerbation or injury. 10-Not Attempted due to Environmental Limitations-(lack of equipment, weather restraints, etc.). 88-Not Attempted due to Medical Conditions or Safety Concerns. Eating (QC): 5 Oral Hygiene (QC): 5 Shower/Bathe Self (QC): 5 Upper Body Dressing (QC): 5 Lower Body Dressing (QC): 3 (to help thread legs through jogger style pants. ) On/Off Footwear: 4 (with use of sockaid) Toileting Hygiene (QC): 5 Toilet Transfer (QC): 4 Other Treatment Pt completed supine to sitting EOB transition x2 independently with no cues for safety. Pt completed functional mobility ~300ft with FWW and Mod I for balance requiring no cues for safety. Pt completed functional mobility with FWW going up and down ramp with supervision and no cues for safety. Pt completed functional dynamic standing activity for ~7 minutes with FWW and supervision for balance. Pt reported feeling more confident in her discharge date post therapy session. Education OT Patient Education: Correct positioning, Energy conservation, Home exercise program, Modified ADL techniques, Progress toward Goal/Update tx plan, Purpose of tx/functional activities, Rehab process, Safety issues, Transfer techniques, Use of adapted equipment Teaching Recipient: Patient Teaching Methods: Demonstration, Discussion Response to Teaching: Verbalize Understanding, Return Demonstration OT Color Developer Goals Long-Term Goals Time Frame: Jul 17, 2023 Acute change in mental status: 0 Inattention: 0 Disorganized thinkin Altered level of consciousness: 0 Eating (QC): 6 Oral Hygiene (QC): 6 Toileting Hygiene (QC): 6 Shower/Bathe Self (QC): 6 Upper Body Dressing (QC): 6 Lower Body Dressing (QC): 6 On/Off Footwear (QC): 6 Additional Goals: 1-Demonstrate ADL Tasks, 2-Verbalize Understanding, 3- ImproveStrength/Chris 1=Demonstrate adherence to instructed precautions during ADL tasks. 2=Patient will verbalize/demonstrate understanding of assistive devices/modifications for ADL. 3=Patient will improve strength/tolerance for activity to enable patient to perform ADL's. OT Education/Plan Problem List/Assessment Assessment: Decreased Activ Tolerance, Decreased Safety Aware, Decreased UE Strength, Impaired Funct Balance, Impaired I ADL's, Impaired Self-Care Skills Discharge Recommendations Plan/Recommendations: Continue POC Treatment Plan/Plan of Care Treatment,Training & Education: Yes Patient would benefit from OT for education, treatment and training to promote independence in ADL's, mobility, safety and/or upper extremity function for A DL's. Plan of Care: ADL Retraining, Functional Mobility, Group Exercise/Act as Ind, UE Funct Exercise/Act Treatment Duration: Jul 17, 2023 Frequency: At least 5 of 7 days/Wk (IRF) Estimated Hrs Per Day: 1.5 hours per day Agreement: Yes Rehab Potential: Good Time Start Time: 10:40 Stop Time: 12:10 DATE: Jul 06, 2023 Total Time Billed (hr/min): 90 Billed Treatment Time 1, ADL 4, FA 2 Abby Molina OTR/L Jul 06, 2023 14:18
--- NOTE | 2023-07-06 15:46 | Physical Therapy Daily Note ---
PT Daily Note-Current Subjective Pt presents sitting in recliner with B feet on floor. Nursing in room giving meds. Pt denies pain. Pt agreeable to PT tx. Pt states she has "a heart flutter" and she needs lots of rest breaks. Pain Section J - Health Conditions 1. Rarely or not at all 2. Occasionally 3. Frequently 4. Almost constantly 8. Unable to answer Pain Effect on Sleep: 1 Pain Interference with Therapy: 1 Pain Interference w/Day-to-Day: 1 Mental Status Patient Orientation: Person, Place, Time, Situation Transfers SCALE: Activities may be completed with or without assistive devices. 6-Xovhvgpsdw-chvezpo completes the activity by him/herself with no assistance from a helper. 5-Set-up or Clean-up Assistance-helper sets up or cleans up; patient completes activity. [place] assists only prior to or following the activity. 4-Supervision or Touching Assistance-helper provides verbal cues and/or touching/steadying and/or contact guard assistance as patient completes activity. Assistance may be provided throughout the activity or intermittently. 3-Partial/Moderate Assistance-helper does LESS THAN HALF the effort. [place] lifts, holds or supports trunk or limbs, but provides less than half the effort. 2-Substantial/Maximal Assistance-helper does MORE THAN HALF the effort. [place] lifts or holds trunk or limbs and provides more than half the effort. 9-Ltimdqxpr-vitvgq does ALL the effort. Patient does none of the effort to complete the activity. Or, the assistance of 2 or more helpers is required for the patient to complete the activity. If activity was not attempted, code reason: 7-Patient Refused. 9-Not Applicable-not attempted and the patient did not perform the activity before the current illness, exacerbation or injury. 10-Not Attempted due to Environmental Limitations-(lack of equipment, weather restraints, etc.). 88-Not Attempted due to Medical Conditions or Safety Concerns. Sit to Stand (QC): 3 ([place] only from chairs with no armrest or short armrests. If chair has high armrest, pt is setup assist for FWW.) Chair/Aun-lr-Rzekq Xfer(QC): 4 Weight Bearing Right Lower Extremity: Right Weight Bearing/Tolerated Left Lower Extremity: Left Weight Bearing/Tolerated Gait Training Does the Patient Walk?: Yes Walk 10 feet (QC): 6 Walk 50 ft with 2 Turns(QC): 4 Gait Assistive Device: FWW Pt amb 100' + 60' /c FWW, SBA for vc's, from room to PT gym. Pt had SOB towards the end and needed a rest break. Wheelchair Training Does the Pt Use a Wheelchair?: No Exercises THER EX: Standing B LE (with UE support on FWW) x 10reps: Heel/Toe raises, Hip ABD, Flex (marching). Seated B LE x 10 reps with Red Ther Band: LAQ, HS curls Treatments Pt amb from room to PT gym. Pt performed seated and standing ther ex /c & /s red ther band. Pt required multiple rest breaks secondary to fatigue. Pt amb back to room with SOB but no LOB. Post tx with pt sitting in recliner, call light within reach and all needs met. Assessment Current Status: Good Progress Pt required multiple rest breaks secondary to fatigue. PT Ruling Machine Operator Goals Fdc Goals PT Fdc Goals Time Frame: Jul 15, 2023 Roll Left & Right (QC): 6 Sit to Lying (QC): 6 Lying-Sitting on Side/Bed(QC): 6 Sit to Stand (QC): 6 Chair/[place] Xfer(QC): 6 (/c FWW) Toilet Transfer (QC): 6 (/c FWW) Car Transfer (QC): 6 (/c FWW) Does the Patient Walk: Yes Walk 10 feet (QC): 6 (/c FWW) Walk 50ft with 2 Turns (QC): 6 (/c FWW) Walk 150 ft (QC): 6 (/c FWW) Walking 10ft on Uneven Surface: 6 (/c FWW) 1 Step (curb) (QC): 6 (/c FWW) 4 Steps (QC): 6 (/c rails) 12 Steps (QC): 6 (/c rails) Picking up an Object (QC): 6 (/c commercial teller) Does the Pt use WC or Scooter?: No Wheel 50 feet with 2 turns (QC: 9 Wheel 150 feet: 9 PT Plan Problem List Problem List: Activity Tolerance, ROM Treatment/Plan Treatment Plan: Continue Plan of Care Treatment Plan: Bed Mobility, Education, Functional Activity Chris, Functional Strength, Group Therapy, Gait, Safety, Therapeutic Exercise, Transfers Treatment Duration: Jul 15, 2023 Frequency: At least 5 of 7 days/Wk (IRF) Estimated Hrs Per Day: 1.5 hours per day Patient and/or Family Agrees t: Yes Discharge Recommendations Plan Continue with tx per pt POC. Time Time In: 0815 Time Out: 0900 DATE: Jul 06, 2023 Total Billed Treatment Time: 45 Total Billed Treatment 1, EX2 (30m), FA (15m) DAVID FITCH LAP WINDER Jul 06, 2023 15:46
--- NOTE | 2023-07-06 16:01 | Physical Therapy Daily Note ---
PT Daily Note-Current Subjective Pt presents sitting in recliner with B feet elevated. Pt denies pain. Pt agreeable to PT tx. Pt reports being slightly fearful of going home secondary to "hurdles" to overcome. MEDICAL APPARATUS MODEL MAKER and pt discussed fears and MEDICAL APPARATUS MODEL MAKER educated pt on ways to improve home to assist pt in more adequate living arrangements. Pain Section J - Health Conditions 1. Rarely or not at all 2. Occasionally 3. Frequently 4. Almost constantly 8. Unable to answer Pain Effect on Sleep: 1 Pain Interference with Therapy: 1 Pain Interference w/Day-to-Day: 1 Mental Status Patient Orientation: Person, Place, Time, Situation Transfers SCALE: Activities may be completed with or without assistive devices. 1-Akqyzbazka-iqqqswi completes the activity by him/herself with no assistance from a helper. 5-Set-up or Clean-up Assistance-helper sets up or cleans up; patient completes activity. [place] assists only prior to or following the activity. 4-Supervision or Touching Assistance-helper provides verbal cues and/or touching/steadying and/or contact guard assistance as patient completes act ivity. Assistance may be provided throughout the activity or intermittently. 3-Partial/Moderate Assistance-helper does LESS THAN HALF the effort. [place] lifts, holds or supports trunk or limbs, but provides less than half the effort. 2-Substantial/Maximal Assistance-helper does MORE THAN HALF the effort. [place] lifts or holds trunk or limbs and provides more than half the effort. 4-Bqbvihnyz-wrtuqn does ALL the effort. Patient does none of the effort to complete the activity. Or, the assistance of 2 or more helpers is required for the patient to complete the activity. If activity was not attempted, code reason: 7-Patient Refused. 9-Not Applicable-not attempted and the patient did not perform the activity before the current illness, exacerbation or injury. 10-Not Attempted due to Environmental Limitations-(lack of equipment, weather restraints, etc.). 88-Not Attempted due to Medical Conditions or Safety Concerns. Sit to Stand (QC): 3 (min-modA from short armrest chairs. Set-up A from high armrest chairs.) Weight Bearing Right Lower Extremity: Right Weight Bearing/Tolerated Left Lower Extremity: Left Weight Bearing/Tolerated Gait Training Does the Patient Walk?: Yes Walk 10 feet (QC): 6 Walk 50 ft with 2 Turns(QC): 4 Walk 150 ft (QC): 4 Gait Assistive Device: FWW Pt amb ~250' x 2, around ARU, with FWW, SBA for safety. Wheelchair Training Does the Pt Use a Wheelchair?: No Exercises THER EX: Standing, with UE support on window sill, B LE Hip ABD/Side-stepping x 15' x 2 with no LOB. Standing B LE with UE on FWW x 10reps: Hip ABD, Ext, Flex. Treatments Pt amb ~250' with FWW, SBA from room, around ARU and conducted ther ex while standing at end of hallway. Pt had SOB, with no LOB, and required multiple rest breaks throughout tx. Pt amb back to room ~250' with FWW, SBA. Pt performed standing ther ex with UE support on FWW. Post tx with pt sitting in recliner, B feet elevated, call light within reach and all needs met. Assessment Current Status: Good Progress Pt more tearful/fearful this tx. Pt had no concerns after pt education over home safety improvement discussion. PT Hydraulic Modeling Engineer Goals Detention Goals PT Detention Goals Time Frame: Jul 15, 2023 Roll Left & Right (QC): 6 Sit to Lying (QC): 6 Lying-Sitting on Side/Bed(QC): 6 Sit to Stand (QC): 6 Chair/Prn-th-Yzlkq Xfer(QC): 6 (/c FWW) Toilet Transfer (QC): 6 (/c FWW) Car Transfer (QC): 6 (/c FWW) Does the Patient Walk: Yes Walk 10 feet (QC): 6 (/c FWW) Walk 50ft with 2 Turns (QC): 6 (/c FWW) Walk 150 ft (QC): 6 (/c FWW) Walking 10ft on Uneven Surface: 6 (/c FWW) 1 Step (curb) (QC): 6 (/c FWW) 4 Steps (QC): 6 (/c rails) 12 Steps (QC): 6 (/c rails) Picking up an Object (QC): 6 (/c sizing machine operator) Does the Pt use WC or Scooter?: No Wheel 50 feet with 2 turns (QC: 9 Wheel 150 feet: 9 PT Plan Problem List Problem List: Activity Tolerance, Functional Strength, ROM Treatment/Plan Treatment Plan: Continue Plan of Care Treatment Plan: Bed Mobility, Education, Functional Activity Chris, Functional Strength, Group Therapy, Gait, Safety, Therapeutic Exercise, Transfers Treatment Duration: Jul 15, 2023 Frequency: At least 5 of 7 days/Wk (IRF) Estimated Hrs Per Day: 1.5 hours per day Patient and/or Family Agrees t: Yes Safety Risks/Education Patient Education: Safety Issues Teaching Recipient: Patient Teaching Methods: Discussion Response to Teaching: Verbalize Understanding MEDICAL APPARATUS MODEL MAKER educated pt over home safety improvement ideas (ie, grab bars, tub mat, transfer bench for tub). Discharge Recommendations Plan Continue with tx per pt POC. Time Time In: 1300 Time Out: 1345 DATE: Jul 06, 2023 Total Billed Treatment Time: 45 Total Billed Treatment 1, GT2 (25m), EX (20m) DAVID FITHC MEDICAL APPARATUS MODEL MAKER Jul 06, 2023 16:00
[2023-07-06 19:56] VITALS: BP 120/74
[2023-07-06] MEDS: FLUTICASONE NASAL SPRAY (120 SPRAYS) NS SCH (21:12)
[2023-07-06] MEDS: MELATONIN 3 MG TABLET PO PRN (21:12)
[2023-07-06] MEDS: GABAPENTIN 400 MG CAPSULE PO SCH (21:12)
[2023-07-07 08:00] VITALS: BP 111/56
--- NOTE | 2023-07-07 08:11 | PM&R Progress Note ---
Subjective HPI/CC On Admission Date Seen by Provider: Jul 07, 2023 Time Seen by Provider: 12:00 Subjective/Events-last exam 07/07/2023: Patient doing well Set for discharge tomorrow A little bit frightened about going home but she is doing very well 07/06/2023: Much improved ambulation Reviewed meds and labs No falls Pain controlled 07/05/2023: Patient doing well Denies any pain Ambulating around pretty well No falls 07/04/2023: Much improved Pain controlled Spouse of 57 years is at bedside BM+ 07/03/2023: Patient doing well Bowels are moving Pain is controlled Participation is good Reviewed meds and labs 07/02/2023: Patient doing well Reviewed meds and labs Adding iron and B12 to labs for anemia source Pain is controlled Bowels are moving Working with therapy Review of Systems General: Fatigue, Malaise Objective Exam Vital Signs Vital Signs Date Time Temp Pulse Resp B/P (MAP) Pulse Ox O2 Delivery O2 Flow Rate FiO2 07/07/23 20:15 Room Air 07/07/23 19:59 36.6 73 16 103/59 (74) 97 Capillary Refill : General Appearance: WD/WN, Anxious, Chronically ill, Thin HEENT: PERRL/EOMI, Normal ENT Inspection, Pharynx Normal Neck: Full Range of Motion, Normal Inspection, Non Tender, Supple, Carotid Bruit Respiratory: Chest Non Tender, Lungs Clear, Normal Breath Sounds, No Accessory Muscle Use, No Respiratory Distress Cardiovascular: Regular Rate, Rhythm, No Edema, No Gallop, No JVD, No Murmur, Normal Peripheral Pulses Gastrointestinal: Normal Bowel Sounds, No Organomegaly, No Pulsatile Mass, Non Tender, Soft Back: Normal Inspection, No CVA Tenderness, No Vertebral Tenderness Extremity: Normal Capillary Refill, Normal Inspection, Normal Range of Motion, Non Tender, No Calf Tenderness, No Pedal Edema Neurologic/Psychiatric: Alert, Oriented x3, Normal Mood/Affect, cutlet maker pork II-XII Norm as Tested, Abnormal Gait, Motor Weakness (bilateral legs) Skin: Normal Color, Warm/Dry Lymphatic: No Adenopathy Results/Procedures Lab Patient resulted labs reviewed. FIM Transfers Therapy Code Descriptions/Definitions Functional [place] Measure: 0=Not Assessed/NA 4=Minimal Assistance 1=Total Assistance 5=Supervision or Setup 2=Maximal Assistance 6=Modified [place] 3=Moderate Assistance 7=Complete IndependenceSCALE: Activities may be completed with or without assistive devices. 6-Zrghdxnsse-hkmswlh completes the activity by him/herself with no assistance from a helper. 5-Set-up or Clean-up Assistance-helper sets up or cleans up; patient completes activity. [place] assists only prior to or following the activity. 4-Supervision or Touching Assistance-helper provides verbal cues and/or touching/steadying and/or contact guard assistance as patient completes activity. Assistance may be provided throughout the activity or intermittently. 3-Partial/Moderate Assistance-helper does LESS THAN HALF the effort. [place] lifts, holds or supports trunk or limbs, but provides less than half the effort. 2-Substantial/Maximal Assistance-helper does MORE THAN HALF the effort. [place] lifts or holds trunk or limbs and provides more than half the effort. 8-Zxzldalgp-phyktw does ALL the effort. Patient does none of the effort to complete the activity. Or, the assistance of 2 or more helpers is required for the patient to complete the activity. If activity was not attempted, code reason: 7-Patient Refused. 9-Not Applicable-not attempted and the patient did not perform the activity before the current illness, exacerbation or injury. 10-Not Attempted due to Environmental Limitations-(lack of equipment, weather restraints, etc.). 88-Not Attempted due to Medical Conditions or Safety Concerns. Roll Left to Right (QC): 3 (Min (A)) Sit to Lying (QC): 4 (prn v.c. /c leg pole peeling machine operator) Sit to Stand (QC): 3 (min-modA from short armrest chairs. Set-up A from high armrest chairs.) Chair/Pns-gu-Sfvzl Xfer(QC): 4 Car Transfer (QC): 3 (Min (A) /c LE's) Gait Training Does the Patient Walk?: Yes Distance: 300', 150' Walk 10 feet (QC): 6 Walk 50 ft with 2 Turns(QC): 4 Walk 150 ft (QC): 4 Walking 10ft/uneven surface-QC: 4 (/c FWW) Gait Assistive Device: FWW Wheelchair Training Does the Pt Use a Wheelchair?: No Wheel 50 ft with 2 turns (QC): 9 Wheel 150 ft (QC): 9 Stair Training 1 Step (curb) (QC): 3 (Min (A) /c FWW) 4 Steps (QC): 4 (SBA-CGA /c (B) rails) 12 Steps (QC): 88 (due to fatigue) Balance Picking up an Object (QC): 5 (with medical management specialist (she has a medical management specialist at home that she has used the past 4 weeks).) ADL-Treatment Eating (QC): 5 Oral Hygiene (QC): 5 Shower/Bathe Self (QC): 5 Upper Body Dressing (QC): 5 Lower Body Dressing (QC): 3 (to help thread legs through jogger style pants. ) On/Off Footwear (QC): 4 (with use of sockaid) Toileting Hygiene (QC): 5 Toilet Transfer (QC): 4 Assessment/Plan Assessment and Plan Assess & Plan/Chief Complaint Assessment: Bilateral hip fractures following a fall with osteoporosis GERD Osteoporosis HTN HLP Plan: PT OT Pain control BM regimen Monitor labs 07/02/2023: Await iron and B12 results Continue aggressive rehab 07/03/2023: Continue pain medication Fall risk Aggressive rehab 07/04/2023: Pain control BM regimen 07/05/2023: Supportive care Monitor closely 07/06/2023: Monitor pain Continue ambulation 07/07/2023: Therapy to work on confidence Supportive care Discharge home tomorrow (1) Bilateral hip fractures JOE ALVAREZ DO Jul 07, 2023 08:11
[2023-07-07] MEDS: CALCIUM CARBONATE 600 MG +VITAMIN D TABLET PO SCH (09:19)
[2023-07-07] MEDS: LORATADINE 10 MG TABLET PO SCH (09:19)
[2023-07-07] MEDS: ASPIRIN 81 MG CHEWABLE TABLET PO SCH (09:19)
[2023-07-07] MEDS: SENNA W/DOCUSATE TABLET PO SCH ×2 (09:20→21:40)
[2023-07-07] MEDS: DOCUSATE SODIUM 100 MG CAPSULE PO SCH ×2 (09:20→21:40)
[2023-07-07] MEDS: PANTOPRAZOLE 40 MG TABLET PO SCH (09:20)
--- NOTE | 2023-07-07 11:55 | Occupational Ther Daily Note ---
OT Current Status-Daily Note Subjective Pt. alert sitting in recliner. No c/o pain. Pt. agreed to therapy. Mental Status/Objective Patient Orientation: Person, Place, Time, Situation ADL-Treatment Pt. agreed to shower. Pt. ambulated from recliner to bathroom using FWW. Pt. adhering to hip precautions during bathing and LB dressing with the use of AE. Therapy Code Descriptions/Definitions Functional [place] Measure: 0=Not Assessed/NA 4=Minimal Assistance 1=Total Assistance 5=Supervision or Setup 2=Maximal Assistance 6=Modified [place] 3=Moderate Assistance 7=Complete IndependenceSCALE: Activities may be completed with or without assistive devices. 1-Yzxvzvtqfr-toykuge completes the activity by him/herself with no assistance from a helper. 5-Set-up or Clean-up Assistance-helper sets up or cleans up; patient completes activity. [place] assists only prior to or following the activity. 4-Supervision or Touching Assistance-helper provides verbal cues and/or touching/steadying and/or contact guard assistance as patient completes activity. Assistance may be provided throughout the activity or intermittently. 3-Partial/Moderate Assistance-helper does LESS THAN HALF the effort. [place] lif ts, holds or supports trunk or limbs, but provides less than half the effort. 2-Substantial/Maximal Assistance-helper does MORE THAN HALF the effort. [place] lifts or holds trunk or limbs and provides more than half the effort. 8-Kxmquhhqz-epgyud does ALL the effort. Patient does none of the effort to complete the activity. Or, the assistance of 2 or more helpers is required for the patient to complete the activity. If activity was not attempted, code reason: 7-Patient Refused. 9-Not Applicable-not attempted and the patient did not perform the activity before the current illness, exacerbation or injury. 10-Not Attempted due to Environmental Limitations-(lack of equipment, weather restraints, etc.). 88-Not Attempted due to Medical Conditions or Safety Concerns. Eating (QC): 6 (Pt has demonstrated ability to complete independently.) Oral Hygiene (QC): 6 (Pt. completed grooming/oral hygiene while standing at sink with no LOB. ) Bathing Location: L Arm, R Arm, L Upper Leg, R Upper Leg, L Lower Leg (including foot), R Lower Leg (including foot), Chest, Abdomen, Buttocks, Perineal Area Shower/Bathe Self (QC): 6 (Pt. able to bathe all areas while sitting 95% of the time on shower bench using HH shower and grabbars. Stands to clean buttocks and anita area using grabbars to stabilize.) Upper Body Dressing (QC): 6 (Pt. able to don/doff UB clothing by self. ) Lower Body Dressing (QC): 6 (Pt. able to don/doff brief/pants using dressing stick and police communications operator by self using FWW and grabbars to stabilize.) On/Off Footwear: 6 (Pt. able to don/doff tedhose/socks/shoes using dressing stick and sock aide by self. ) Toileting Hygiene (QC): 6 (Pt. able to complete clothing manipulation using FWW and grabbars and cleanses all areas by self.) Toilet Transfer (QC): 6 (Pt. able to complete toilet transfers using FWW and grabbars. ) Other Treatment Pt. able to retrieve items using FWW and utilizing police communications operator to adhere to hip precautions while picking items off of floor. Pt. positioned FWW safely when reaching for items on different heights. After session, pt in recliner with call light and phone in reach and all needs met. OT Outpatient Phlebotomist Goals Correction Goals Time Frame: Jul 17, 2023 Acute change in mental status: 0 Inattention: 0 Disorganized thinkin Altered level of consciousness: 0 Eating (QC): 6 Oral Hygiene (QC): 6 Toileting Hygiene (QC): 6 Shower/Bathe Self (QC): 6 Upper Body Dressing (QC): 6 Lower Body Dressing (QC): 6 On/Off Footwear (QC): 6 Additional Goals: 1-Demonstrate ADL Tasks, 2-Verbalize Understanding, 3-Impr oveStrength/Chris 1=Demonstrate adherence to instructed precautions during ADL tasks. 2=Patient will verbalize/demonstrate understanding of assistive devices/modifications for ADL. 3=Patient will improve strength/tolerance for activity to enable patient to perform ADL's. OT Education/Plan Problem List/Assessment Assessment: Decreased UE Strength, Impaired Funct Balance, Impaired Self-Care Skills Discharge Recommendations Plan/Recommendations: Continue POC Treatment Plan/Plan of Care Patient would benefit from OT for education, treatment and training to promote independence in ADL's, mobility, safety and/or upper extremity function for ADL's. Plan of Care: ADL Retraining, Functional Mobility, Group Exercise/Act as Ind, UE Funct Exercise/Act Treatment Duration: Jul 17, 2023 Frequency: At least 5 of 7 days/Wk (IRF) Estimated Hrs Per Day: 1.5 hours per day Agreement: Yes Rehab Potential: Good Time Start Time: 10:30 Stop Time: 12:00 DATE: Jul 07, 2023 Total Time Billed (hr/min): 90 Billed Treatment Time 1 visit-ADL 3 (45 min) FA 3 (45 min) BECKY ARZOLA Jul 07, 2023 11:55
--- NOTE | 2023-07-07 15:44 | Physical Therapy Daily Note ---
PT Daily Note-Current Subjective Pt presents in recliner with B feet elevated. Pt denies pain and is agreeable to tx. Pt states she is still concerned about not having much help from her when she is home. Pain Section J - Health Conditions 1. Rarely or not at all 2. Occasionally 3. Frequently 4. Almost constantly 8. Unable to answer Pain Effect on Sleep: 1 Pain Interference with Therapy: 1 Pain Interference w/Day-to-Day: 1 Mental Status Patient Orientation: Person, Place, Time, Situation Transfers SCALE: Activities may be completed with or without assistive devices. 6-[place]eyzqkbreo[place] completes the activity by him/herself with no assistance from a helper. 5-Set-up or Clean-up Assistance-helper sets up or cleans up; patient completes activity. [employer] assists only prior to or following the activity. 4-Supervision or Touching Assistance-helper provides verbal cues and/or touching/steadying and/or contact guard assistance as patient completes activity. Assistance may be provided throughout the activity or intermittently. 3-Partial/Moderate Assistance-helper does LESS THAN HALF the effort. [employer] lifts, holds or supports trunk or limbs, but provides less than half the effort. 2-Substantial/Maximal Assistance-helper does MORE THAN HALF the effort. [employer] lifts or holds trunk or limbs and provides more than half the effort. 7-Yxzhjdopm-ffzokp does ALL the effort. Patient does none of the effort to complete the activity. Or, the assistance of 2 or more helpers is required for the patient to complete the activity. If activity was not attempted, code reason: 7-Patient Refused. 9-Not Applicable-not attempted and the patient did not perform the activity before the current illness, exacerbation or injury. 10-Not Attempted due to Environmental Limitations-(lack of equipment, weather restraints, etc.). 88-Not Attempted due to Medical Conditions or Safety Concerns. Sit to Stand (QC): 4 Toilet Transfer (QC): 6 Weight Bearing Right Lower Extremity: Right Weight Bearing/Tolerated Left Lower Extremity: Left Weight Bearing/Tolerated Gait Training Does the Patient Walk?: Yes Walk 10 feet (QC): 6 Walk 50 ft with 2 Turns(QC): 4 Walk 150 ft (QC): 4 Walking 10ft/uneven surface-QC: 4 Gait Assistive Device: FWW Pt amb ~700+' /c FWW, CGA for steadying, from room, around ARU, elevator, hallway and on even/uneven terrain. Pt ascended/descended ramp outside in courtyard with FWW, CGA, no LOB but requested RB secondary to SOB. Wheelchair Training Does the Pt Use a Wheelchair?: No Balance Picking up an Object (QC): 4 Special Test Comments Pt demonstrated NM skills of steadying to medicinal plant picker object off floor, with (L) UE support on FWW, CGA for safety. Exercises NuStep Minutes: 10 NuStep Workload: 2 Treatments Pt utilized restroom /a leaving room, Independently with FWW. Pt amb ~700+' around ARU, elevator, hallway and on even/uneven terrain. Pt ascended/descended ramp outside in courtyard with no LOB but requested RB secondary to SOB. Pt demonstrated LE & UE synchronicity on NuStep for 10min. Post tx with pt in recliner, call light within reach and all needs met. Assessment Current Status: Good Progress Pt still apprehensive for D/C on 07/09/23, secondary to 's inability to assist pt in functional mobility activities and ADL's. PT Half-Way Goals Half-Way Goals PT Drier Tender Goals Time Frame: Jul 15, 2023 Roll Left & Right (QC): 6 Sit to Lying (QC): 6 Lying-Sitting on Side/Bed(QC): 6 Sit to Stand (QC): 6 Chair/Wum-to-Lpzxc Xfer(QC): 6 (/c FWW) Toilet Transfer (QC): 6 (/c FWW) Car Transfer (QC): 6 (/c FWW) Does the Patient Walk: Yes Walk 10 feet (QC): 6 (/c FWW) Walk 50ft with 2 Turns (QC): 6 (/c FWW) Walk 150 ft (QC): 6 (/c FWW) Walking 10ft on Uneven Surface: 6 (/c FWW) 1 Step (curb) (QC): 6 (/c FWW) 4 Steps (QC): 6 (/c rails) 12 Steps (QC): 6 (/c rails) Picking up an Object (QC): 6 (/c supervisor liquefaction) Does the Pt use WC or Scooter?: No Wheel 50 feet with 2 turns (QC: 9 Wheel 150 feet: 9 PT Plan Problem List Problem List: Activity Tolerance, Functional Strength, ROM Treatment/Plan Treatment Plan: Continue Plan of Care Treatment Plan: Bed Mobility, Education, Functional Activity Chris, Functional Strength, Group Therapy, Gait, Safety, Therapeutic Exercise, Transfers Treatment Duration: Jul 15, 2023 Frequency: At least 5 of 7 days/Wk (IRF) Estimated Hrs Per Day: 1.5 hours per day Patient and/or Family Agrees t: Yes Safety Risks/Education Patient Education: Reviewed Precautions, Safety Issues Teaching Recipient: Patient Teaching Methods: Demonstration, Discussion Response to Teaching: Verbalize Understanding Discharge Recommendations Plan Continue with tx per pt POC. Time Time In: 814 Time Out: 914 DATE: Jul 07, 2023 Total Billed Treatment Time: 60 Total Billed Treatment 1, GT2 (30m), EX2 (30m) DAVID FITCH WRECKER DRIVER Jul 07, 2023 15:44
--- NOTE | 2023-07-07 16:00 | Physical Therapy Daily Note ---
PT Daily Note-Current Subjective Pt presents in recliner with B feet elevated. Pt denies pain and is agreeable to PT tx. Pain Section J - Health Conditions 1. Rarely or not at all 2. Occasionally 3. Frequently 4. Almost constantly 8. Unable to answer Pain Effect on Sleep: 1 Pain Interference with Therapy: 1 Pain Interference w/Day-to-Day: 1 Mental Status Patient Orientation: Person, Place, Time, Situation Transfers SCALE: Activities may be completed with or without assistive devices. 2-Xcpdxdhvdk-xdifxbk completes the activity by him/herself with no assistance from a helper. 5-Set-up or Clean-up Assistance-helper sets up or cleans up; patient completes activity. [place] assists only prior to or following the activity. 4-Supervision or Touching Assistance-helper provides verbal cues and/or touching/steadying and/or contact guard assistance as patient completes activity. Assistance may be provided throughout the activity or intermittently. 3-Partial/Moderate Assistance-helper does LESS THAN HALF the effort. [place] lifts, holds or supports trunk or limbs, but provides less than half the effort. 2-Substantial/Maximal Assistance-helper does MORE THAN HALF the effort. [place] lifts or holds trunk or limbs and provides more than half the effort. 8-Nffnhbstw-ffupxq does ALL the effort. Patient does none of the effort to co mplete the activity. Or, the assistance of 2 or more helpers is required for the patient to complete the activity. If activity was not attempted, code reason: 7-Patient Refused. 9-Not Applicable-not attempted and the patient did not perform the activity before the current illness, exacerbation or injury. 10-Not Attempted due to Environmental Limitations-(lack of equipment, weather restraints, etc.). 88-Not Attempted due to Medical Conditions or Safety Concerns. Roll Left & Right (QC): 6 (to (L), 88 on (R)) Sit to Lying (QC): 6 Lying to Sitting/Side of Bed(Q: 6 Sit to Stand (QC): 4 Chair/Pnc-ge-Wwuqz Xfer(QC): 4 Weight Bearing Right Lower Extremity: Right Weight Bearing/Tolerated Left Lower Extremity: Left Weight Bearing/Tolerated Gait Training Does the Patient Walk?: Yes Walk 10 feet (QC): 6 Walk 50 ft with 2 Turns(QC): 4 Walk 150 ft (QC): 4 Gait Assistive Device: FWW Pt amb around ARU ~200' with FWW, SBA for safety. Wheelchair Training Does the Pt Use a Wheelchair?: No Exercises Supine Ex: Bridging Treatments Pt moved to Room 226 during OT previous tx. Pt requested discussion/pt education was provided over bed mobility and functional mobility for pt D/C on 07/09/23. Pt demonstrated Independent bed mobility. Pt conducted supine bridges, with SOB, to assist pt /c bed mobility/ADL's. Pt amb around ARU ~200' with FWW. Post tx with pt in recliner, call light within reach and all needs met. Assessment Current Status: Good Progress Pt still slightly apprehensive about D/C on 07/09/23 but room change to 226 appears to provide pt with more independence and knowledge of such skills. PT Occupational Therapist Aide Goals Occupational Therapist Aide Goals PT Occupational Therapist Aide Goals Time Frame: Jul 15, 2023 Roll Left & Right (QC): 6 Sit to Lying (QC): 6 Lying-Sitting on Side/Bed(QC): 6 Sit to Stand (QC): 6 Chair/Lcg-di-Ebcqg Xfer(QC): 6 (/c FWW) Toilet Transfer (QC): 6 (/c FWW) Car Transfer (QC): 6 (/c FWW) Does the Patient Walk: Yes Walk 10 feet (QC): 6 (/c FWW) Walk 50ft with 2 Turns (QC): 6 (/c FWW) Walk 150 ft (QC): 6 (/c FWW) Walking 10ft on Uneven Surface: 6 (/c FWW) 1 Step (curb) (QC): 6 (/c FWW) 4 Steps (QC): 6 (/c rails) 12 Steps (QC): 6 (/c rails) Picking up an Object (QC): 6 (/c claim trainee) Does the Pt use WC or Scooter?: No Wheel 50 feet with 2 turns (QC: 9 Wheel 150 feet: 9 PT Plan Problem List Problem List: Activity Tolerance, Functional Strength, ROM Treatment/Plan Treatment Plan: Continue Plan of Care Treatment Plan: Bed Mobility, Education, Functional Activity Chris, Functional Strength, Group Therapy, Gait, Safety, Therapeutic Exercise, Transfers Treatment Duration: Jul 15, 2023 Frequency: At least 5 of 7 days/Wk (IRF) Estimated Hrs Per Day: 1.5 hours per day Patient and/or Family Agrees t: Yes Safety Risks/Education Patient Education: Safety Issues Teaching Recipient: Patient Teaching Methods: Demonstration, Discussion Response to Teaching: Verbalize Understanding Discharge Recommendations Plan Continue with tx per PT POC. Time Time In: 1430 Time Out: 1500 DATE: Jul 07, 2023 Total Billed Treatment Time: 30 Total Billed Treatment 1, GT (10m), FA (20m) DAVID FITCH SAS DEVELOPER Jul 07, 2023 16:00
[2023-07-07 19:59] VITALS: BP 103/59
--- NOTE | 2023-07-07 20:05 | D/C HH Face to Face Order ---
D/C Face to Face Orders Reconcile Patient Problems Problems Reviewed?: Yes Instructions for Patient Via [facility], Patient Instructions/FollowUp: PCP as scheduled Physician to follow Patient: Ginny Discharge Diet for Home: No Restrictions Patient Problems: hip fx Patient Data-Allergies,Ht & Wt Patient Allergies: Coded Allergies: Cephalexin Monohydrate (Verified Allergy, Mild, GI UPSET/LOOSE STOOLS, 08/31/18) Height (Feet): 5 Height (Inches): 4.00 Weight (Pounds): 139 Weight (Ounces): 0.0 Home Health Need/Face to Face Date of Face to Face: Jul 07, 2023 Clinical Findings: Muscle weakness, Unsteady gait I have seen Pt iddz-mj-ggpn: Yes Discharged To: Home Diagnosis/Conditions: hip fx Patient is Homebound due to: Muscle weakness, Pain w/ambulation Homebound Status Due to the above stated illness, injury or surgical procedure (medical condition or diagnosis) and associated clinical findings, the patient is homebound because of his/her inability to leave home except with aid of a supportive device and/or person AND leaving the home requires a considerable and taxing effort or is medically contraindicated. Pt req the following assistanc: Walker Home Health Nursing Orders Home Health Services Order: Nursing Services, Diesel Fleet Mechanic-Evaluate & Treat, Physical Therapy-Evaluate & Treat Certify Stmt I certify that this patient is under my care and that I, a nurse practitioner or a physician; a procurement assistant working with me, had a face to face encounter that - meets the physician face to face encounter requirements with this patient as dated. JOE ALVAREZ DO Jul 07, 2023 20:05
[2023-07-07] MEDS: FLUTICASONE NASAL SPRAY (120 SPRAYS) NS SCH (21:36)
[2023-07-07] MEDS: ACETAMINOPHEN 325 MG TABLET PO PRN (21:37)
[2023-07-07] MEDS: MELATONIN 3 MG TABLET PO PRN (21:37)
[2023-07-07] MEDS: GABAPENTIN 400 MG CAPSULE PO SCH (21:37)
--- NOTE | 2023-07-08 05:36 | Discharge Summary ---
Diagnosis/Chief Complaint Date of Admission Jul 01, 2023 at 13:08 Date of Discharge Discharge Date: Jul 09, 2023 Discharge Summary Discharge Physical Examination Allergies: Coded Allergies: Cephalexin Monohydrate (Verified Allergy, Mild, GI UPSET/LOOSE STOOLS, 08/31/18) Vitals & I&Os Vital Signs Date Time Temp Pulse Resp B/P (MAP) Pulse Ox O2 Delivery O2 Flow Rate FiO2 07/08/23 19:51 36.7 72 18 108/61 (77) 97 Room Air Hospital Course Labs (last 24 hrs) Laboratory Tests 07/02/23 05:40: White Blood Count 4.8, Red Blood Count 2.80L, Hemoglobin 8.8L, Hematocrit 27L, Mean Corpuscular Volume 98, Mean Corpuscular Hemoglobin 31, Mean Corpuscular Hemoglobin Concent 32, Red Cell Distribution Width 15.5H, Platelet Count 319, Mean Platelet Volume 9.4, Immature Granulocyte % (Auto) 0, Neutrophils (%) (Auto) 52, Lymphocytes (%) (Auto) 33, Monocytes (%) (Auto) 11, Eosinophils (%) (Auto) 4, Basophils (%) (Auto) 0, Neutrophils # (Auto) 2.5, Lymphocytes # (Auto) 1.6, Monocytes # (Auto) 0.5, Eosinophils # (Auto) 0.2, Basophils # (Auto) 0.0, Immature Granulocyte # (Auto) 0.0, Sodium Level 141, Potassium Level 3.9, Chl oride Level 109H, Carbon Dioxide Level 26, Anion Gap 6, Blood Urea Nitrogen 16, Creatinine 0.77, Estimat Glomerular Filtration Rate 78, BUN/Creatinine Ratio 21, Glucose Level 92, Calcium Level 8.7, Corrected Calcium 9.7, Iron Level 57, Total Bilirubin 0.9, Aspartate Amino Transf (AST/SGOT) 12, Alanine Aminotransferase (ALT/SGPT) 11, Alkaline Phosphatase 88, Total Protein 4.7L, Albumin 2.8L, Vitamin B12 Level 367 Pending Labs Laboratory Tests 07/02/23 05:40: White Blood Count 4.8, Red Blood Count 2.80, Hemoglobin 8.8, Hematocrit 27, Mean Corpuscular Volume 98, Mean Corpuscular Hemoglobin 31, Mean Corpuscular Hemoglobin Concent 32, Red Cell Distribution Width 15.5, Platelet Count 319, Mean Platelet Volume 9.4, Immature Granulocyte % (Auto) 0, Neutrophils (%) (Auto) 52, Lymphocytes (%) (Auto) 33, Monocytes (%) (Auto) 11, Eosinophils (%) (Auto) 4, Basophils (%) (Auto) 0, Neutrophils # (Auto) 2.5, Lymphocytes # (Auto) 1.6, Monocytes # (Auto) 0.5, Eosinophils # (Auto) 0.2, Basophils # (Auto) 0.0, Immature Granulocyte # (Auto) 0.0, Sodium Level 141, Potassium Level 3.9, Chloride Level 109, Carbon Dioxide Level 26, Anion Gap 6, Blood Urea Nitrogen 16, Creatinine 0.77, Estimat Glomerular Filtration Rate 78, BUN/Creatinine Ratio 21, Glucose Level 92, Calcium Level 8.7, Corrected Calcium 9.7, Iron Level 57, Total Bilirubin 0.9, Aspartate Amino Transf (AST/SGOT) 12, Alanine Aminotransferase (ALT/SGPT) 11, Alkaline Phosphatase 88, Total Protein 4.7, Albumin 2.8, Vitamin B12 Level 367 Discharge Home Medications: Active Scripts Active Metoprolol Succinate 25 Mg Tab.er.24h 12.5 Mg PO DAILY Reported Pantoprazole Sodium 40 Mg Tablet.dr 40 Mg PO DAILY Gabapentin 400 Mg Capsule 400 Mg PO HS [facility] DISCHARGE STATES "REPLACES 100MG CAPS" Flonase Allergy Relief (Fluticasone Propionate) 50 Mcg/Actuation [place].susp 2 [place] NSEACH HS Cyanocobalamin Injection (Cyanocobalamin) 1,000 Mcg/Ml Inj 1,000 Mcg IM MONTHLY Cetirizine HCl 10 Mg Tablet 10 Mg PO DAILY Caltrate 600 + D Tablet (Calcium Carbonate/Vitamin D3) 600 Mg Calcium-20 Mcg (800 Unit) Tablet 1 Each PO DAILY Atorvastatin Calcium 10 Mg Tablet 10 Mg PO DAILY Aspirin 81 Mg Tab.chew 81 Mg PO DAILY Instructions to patient/family Please see electronic discharge instructions given to patient. Diagnosis/Problems Diagnosis/Problems (1) Bilateral hip fractures JOE ALVAREZ DO Jul 08, 2023 05:36
[2023-07-08 08:00] VITALS: BP 108/58
[2023-07-08] MEDS: DOCUSATE SODIUM 100 MG CAPSULE PO SCH ×2 (08:17→21:44)
[2023-07-08] MEDS: SENNA W/DOCUSATE TABLET PO SCH ×2 (08:17→21:44)
[2023-07-08] MEDS: PANTOPRAZOLE 40 MG TABLET PO SCH (08:17)
[2023-07-08] MEDS: ASPIRIN 81 MG CHEWABLE TABLET PO SCH (08:17)
[2023-07-08] MEDS: LORATADINE 10 MG TABLET PO SCH (08:17)
[2023-07-08] MEDS: CALCIUM CARBONATE 600 MG +VITAMIN D TABLET PO SCH (08:17)
--- NOTE | 2023-07-08 09:30 | Physical Therapy Daily Note ---
PT Daily Note-Current Subjective Pt presents sitting in recliner with B feet on floor. Pt denies pain. States "I didn't sleep well so I am sleepy". Pt agreeable to tx. Pain Section J - Health Conditions 1. Rarely or not at all 2. Occasionally 3. Frequently 4. Almost constantly 8. Unable to answer Pain Effect on Sleep: 1 Pain Interference with Therapy: 1 Pain Interference w/Day-to-Day: 1 Mental Status Patient Orientation: Person, Place, Time, Situation Transfers SCALE: Activities may be completed with or without assistive devices. 5-Qgtdvmdouf-ecsvfvt completes the activity by him/herself with no assistance from a helper. 5-Set-up or Clean-up Assistance-helper sets up or cleans up; patient completes activity. [place] assists only prior to or following the activity. 4-Supervision or Touching Assistance-helper provides verbal cues and/or touching/steadying and/or contact guard assistance as patient completes activity. Assistance may be provided throughout the activity or intermittently. 3-Partial/Moderate Assistance-helper does LESS THAN HALF the effort. [place] lift s, holds or supports trunk or limbs, but provides less than half the effort. 2-Substantial/Maximal Assistance-helper does MORE THAN HALF the effort. [place] lifts or holds trunk or limbs and provides more than half the effort. 5-Gvdpdngxt-bndurz does ALL the effort. Patient does none of the effort to complete the activity. Or, the assistance of 2 or more helpers is required for the patient to complete the activity. If activity was not attempted, code reason: 7-Patient Refused. 9-Not Applicable-not attempted and the patient did not perform the activity before the current illness, exacerbation or injury. 10-Not Attempted due to Environmental Limitations-(lack of equipment, weather restraints, etc.). 88-Not Attempted due to Medical Conditions or Safety Concerns. Roll Left & Right (QC): 6 Sit to Lying (QC): 6 Lying to Sitting/Side of Bed(Q: 6 Sit to Stand (QC): 6 Chair/Tcj-qf-Vnpdp Xfer(QC): 6 Toilet Transfer (QC): 6 Car Transfer (QC): 6 Provide pt time to accomplish. Weight Bearing Right Lower Extremity: Right Weight Bearing/Tolerated Left Lower Extremity: Left Weight Bearing/Tolerated Gait Training Does the Patient Walk?: Yes Walk 10 feet (QC): 6 Walk 50 ft with 2 Turns(QC): 6 Walk 150 ft (QC): 6 Walking 10ft/uneven surface-QC: 4 (SBA for unsteadying and safety) Gait Assistive Device: FWW Pt requires break after 150' secondary to SOB. Pt amb 150' + 80' + 60' /c FWW, Independently with RB's prn. Wheelchair Training Does the Pt Use a Wheelchair?: No Stair Training Stair Training: Handrails/: 2 handrails #of Steps: 12 1 Step (curb) (QC): 6 4 Steps (QC): 6 12 Steps (QC): 4 (SBA for steadying and safety) Stairs: Pattern: Step to Pt demonstrated ability to ascend/descend 4 stairs x 3 reps (12 stairs), with (B) handrails, Independently. Pt was significantly SOB /p activity and required RB. Balance Picking up an Object (QC): 6 Special Test Comments (L) UE support on FWW Exercises Supine Ex: Bridging, Quad Set, Straight leg raise Supine Reps: 10 Seated Therapy Exercises: Long arc quads Seated Reps: 10 B LE- PNF HS stretch x 15s x 3 NuStep Minutes: 16 NuStep Workload: 3 Neuromuscular Pt performed dynamic sitting ( with and without idania-disc) and dynamic standing activity reaching outside of BRY for functional mobility independence. Treatments Pt amb from room, around ARU and to PT gym. Pt conducted Quality Code checks and supine/seated/standing ther ex. Pt performed NM dynamic sitting & standing activity with minimal SOB (with RB prn) and no LOB. Pt amb from PT gym back to room. Post tx with pt in recliner, call light within reach and all needs met. Assessment Current Status: Excellent Progress Pt has improved functional mobility to independent with RB's prn, secondary to fatigue. PT Shelter Goals Shelter Goals PT Shingler Goals Time Frame: Jul 15, 2023 Roll Left & Right (QC): 6 Sit to Lying (QC): 6 Lying-Sitting on Side/Bed(QC): 6 Sit to Stand (QC): 6 Chair/Evb-sc-Czklp Xfer(QC): 6 (/c FWW) Toilet Transfer (QC): 6 (/c FWW) Car Transfer (QC): 6 (/c FWW) Does the Patient Walk: Yes Walk 10 feet (QC): 6 (/c FWW) Walk 50ft with 2 Turns (QC): 6 (/c FWW) Walk 150 ft (QC): 6 (/c FWW) Walking 10ft on Uneven Surface: 6 (/c FWW) 1 Step (curb) (QC): 6 (/c FWW) 4 Steps (QC): 6 (/c rails) 12 Steps (QC): 6 (/c rails) Picking up an Object (QC): 6 (/c rheumatologist) Does the Pt use WC or Scooter?: No Wheel 50 feet with 2 turns (QC: 9 Wheel 150 feet: 9 PT Plan Problem List Problem List: Activity Tolerance Treatment/Plan Treatment Plan: Continue Plan of Care Treatment Plan: Bed Mobility, Education, Functional Activity Chris, Functional Strength, Group Therapy, Gait, Safety, Therapeutic Exercise, Transfers Treatment Duration: Jul 15, 2023 Frequency: At least 5 of 7 days/Wk (IRF) Estimated Hrs Per Day: 1.5 hours per day Patient and/or Family Agrees t: Yes Safety Risks/Education Teaching Recipient: Patient Teaching Methods: Discussion Response to Teaching: Verbalize Understanding Pt was educated over energy conservation techniques for D/C'ing to home. Discharge Recommendations Plan D/C 07/09/2023 per pt POC. Time Time In: 0800 Time Out: 929 DATE: Jul 08, 2023 Total Billed Treatment Time: 90 Total Billed Treatment 1, GT (15m), FA2 (30m), EX (15m), NM2 (30m) DAVID FITCH PTA Jul 08, 2023 09:30
--- NOTE | 2023-07-08 09:57 | Occupational Ther Daily Note ---
OT Current Status-Daily Note Subjective Pt. alert sitting in recliner. Just finished PT, pt stated "worn out" but no c/o pain. Pt. agreed to therapy. Mental Status/Objective Patient Orientation: Person, Place, Time, Situation ADL-Treatment Pt. ambulated from recliner to bathroom using FWW. Independent with toilet transfer and toileting hygiene/clothing manipulation. Independent standing at sink to wash hands. Ambulated back to recliner for a rest break. Therapy Code Descriptions/Definitions Functional [place] Measure: 0=Not Assessed/NA 4=Minimal Assistance 1=Total Assistance 5=Supervision or Setup 2=Maximal Assistance 6=Modified [place] 3=Moderate Assistance 7=Complete IndependenceSCALE: Activities may be completed with or without assistive devices. 5-Onsazldmpp-opzctin completes the activity by him/herself with no assistance from a helper. 5-Set-up or Clean-up Assistance-helper sets up or cleans up; patient completes activity. [place] assists only prior to or following the activity. 4-Supervision or Touching Assistance-helper provides verbal cues and/or touch ing/steadying and/or contact guard assistance as patient completes activity. Assistance may be provided throughout the activity or intermittently. 3-Partial/Moderate Assistance-helper does LESS THAN HALF the effort. [place] lifts, holds or supports trunk or limbs, but provides less than half the effort. 2-Substantial/Maximal Assistance-helper does MORE THAN HALF the effort. [place] lifts or holds trunk or limbs and provides more than half the effort. 7-Jjhzbszmo-mkuelt does ALL the effort. Patient does none of the effort to complete the activity. Or, the assistance of 2 or more helpers is required for the patient to complete the activity. If activity was not attempted, code reason: 7-Patient Refused. 9-Not Applicable-not attempted and the patient did not perform the activity before the current illness, exacerbation or injury. 10-Not Attempted due to Environmental Limitations-(lack of equipment, weather restraints, etc.). 88-Not Attempted due to Medical Conditions or Safety Concerns. Other Treatment Pt ambulated around room to focus on functional mobility as well as endurance for safety when discharged home. Pt completed BUE exercises with medium resistance theraband, requiring minimal VC for correct technique. Pt completed 10-15 reps 2 sets, with 3 rest breaks required. Therapist educated pt on HEP and how to use, how often to do at home when discharged. After session, pt sitting in recliner with call light and phone in reach and all needs met. Education OT Patient Education: Energy conservation, Exercise program, Home exercise program, Progress toward Goal/Update tx plan, Reviewed precautions, Safety issues Teaching Recipient: Patient Teaching Methods: Demonstration, Handout, Discussion Response to Teaching: Verbalize Understanding, Return Demonstration, Reinforcement Needed OT Paperhanger Supervisor Goals Group Home Goals Time Frame: Jul 17, 2023 Acute change in mental status: 0 Inattention: 0 Disorganized thinkin Altered level of consciousness: 0 Eating (QC): 6 Oral Hygiene (QC): 6 Toileting Hygiene (QC): 6 Shower/Bathe Self (QC): 6 Upper Body Dressing (QC): 6 Lower Body Dressing (QC): 6 On/Off Footwear (QC): 6 Additional Goals: 1-Demonstrate ADL Tasks, 2-Verbalize Understanding, 3- ImproveStrength/Chris 1=Demonstrate adherence to instructed precautions during ADL tasks. 2=Patient will verbalize/demonstrate understanding of assistive devic es/modifications for ADL. 3=Patient will improve strength/tolerance for activity to enable patient to perform ADL's. OT Education/Plan Problem List/Assessment Assessment: Decreased Activ Tolerance, Decreased Safety Aware, Decreased UE Strength Discharge Recommendations Plan/Recommendations: Continue POC Treatment Plan/Plan of Care Patient would benefit from OT for education, treatment and training to promote independence in ADL's, mobility, safety and/or upper extremity function for ADL's. Plan of Care: ADL Retraining, Functional Mobility, Group Exercise/Act as Ind, UE Funct Exercise/Act Treatment Duration: Jul 17, 2023 Frequency: At least 5 of 7 days/Wk (IRF) Estimated Hrs Per Day: 1.5 hours per day Agreement: Yes Rehab Potential: Good Time Start Time: 09:20 Stop Time: 09:50 DATE: Jul 08, 2023 Total Time Billed (hr/min): 30 Billed Treatment Time 1 visit ADL (15) EX (15) Kayla Harrington COTA Jul 08, 2023 09:57
--- NOTE | 2023-07-08 13:54 | Occupational Ther Daily Note ---
OT Current Status-Daily Note Subjective Pt received sitting in recliner. t very pleasant and willing to participate in therapy. Pt reports that she is feeling more prepared to return home tomorrow. Pain Numeric Pain Scale: 0-No Pain Location: No Pain Reported Mental Status/Objective Patient Orientation: Person, Place, Time, Situation ADL-Treatment Therapy Code Descriptions/Definitions Functional [place] Measure: 0=Not Assessed/NA 4=Minimal Assistance 1=Total Assistance 5=Supervision or Setup 2=Maximal Assistance 6=Modified [place] 3=Moderate Assistance 7=Complete IndependenceSCALE: Activities may be completed with or without assistive devices. 2-Jlgznnmmfz-ojsvzzy completes the activity by him/herself with no assistance from a helper. 5-Set-up or Clean-up Assistance-helper sets up or cleans up; patient completes activity. [place] assists only prior to or following the activity. 4-Supervision or Touching Assistance-helper provides verbal cues and/or touching/steadying and/or contact guard assistance as patient completes activity. Assistance may be provided throughout the activity or intermittently. 3-Partial/Moderate Assistance-helper does LESS THAN HALF the effort. [place] lifts, holds or supports trunk or limbs, but provides less than half the effort. 2-Substantial/Maximal Assistance-helper does MORE THAN HALF the effort. [place] lifts or holds trunk or limbs and provides more than half the effort. 8-Stkfpwjwz-czwvhe does ALL the effort. Patient does none of the effort to complete the activity. Or, the assistance of 2 or more helpers is required for the patient to complete the activity. If activity was not attempted, code reason: 7-Patient Refused. 9-Not Applicable-not attempted and the patient did not perform the activity before the current illness, exacerbation or injury. 10-Not Attempted due to Environmental Limitations-(lack of equipment, weather restraints, etc.). 88-Not Attempted due to Medical Conditions or Safety Concerns. Eating (QC): 6 Oral Hygiene (QC): 6 On/Off Footwear: 6 Other Treatment Pt completed functional dynamic standing activity for ~15mins x3 with FWW and Mod I with no cues for safety. Pt completed functional mobility with FWW and mod I for ~150ft x 2 with no cues for safety. Pt completed UE strengthening HEP with green theraband and no cues for proper execution. Education OT Patient Education: Correct positioning, Energy conservation, Home exercise p tremayneram, Modified ADL techniques, Progress toward Goal/Update tx plan, Purpose of tx/functional activities, Rehab process, Safety issues, Transfer techniques Teaching Recipient: Patient Teaching Methods: Demonstration, Discussion Response to Teaching: Verbalize Understanding, Return Demonstration BIMS CAM BIMS Expression of Ideas and Wants: Without Difficulty Understanding Verbal Content: Understands Brief Interview/Mental Status: Yes IRF JESUS BIMS: IRF JESUS BIMS Response (Comments) Value Repitition of Three Words Three 3 Recalls Socks Yes, No Cue Required 2 Recalls Blue Yes, No Cue Required 2 Recalls Bed Yes, No Cue Required 2 Year Correct 3 Month Accurate Within 5 Days 2 Day Correct 1 Total 15 Patient Normally Able to Recal: Current Session, Location of own room, Staff N tsoney and faces, That he/she in a [facility] Should Staff Asses. Mental St.: No Memory/Recall Ability: Current Season, Location of Own Room, Staff Names and Faces, That He[facility]She in [facility] Mental Status Change/Baseline: 0 Inattention: 0 Disorganized thinkin Altered level of consciousness: 0 OT Miniature Set Designer Goals Miniature Set Designer Goals Time Frame: Jul 17, 2023 Acute change in mental status: 0 Inattention: 0 Disorganized thinkin Altered level of consciousness: 0 Eating (QC): 6 Oral Hygiene (QC): 6 Toileting Hygiene (QC): 6 Shower/Bathe Self (QC): 6 Upper Body Dressing (QC): 6 Lower Body Dressing (QC): 6 On/Off Footwear (QC): 6 Additional Goals: 1-Demonstrate ADL Tasks, 2-Verbalize Understanding, 3- ImproveStrength/Chris 1=Demonstrate adherence to instructed precautions during ADL tasks. 2=Patient will verbalize/demonstrate understanding of assistive devices/modifications for ADL. 3=Patient will improve strength/tolerance for activity to enable patient to perform ADL's. OT Education/Plan Problem List/Assessment Assessment: Decreased Activ Tolerance, Decreased Safety Aware, Decreased UE Strength, Impaired Coordination, Impaired Funct Balance, Impaired I ADL's, Impaired Self-Care Skills Discharge Recommendations Plan/Recommendations: Continue POC Treatment Plan/Plan of Care Treatment,Training & Education: Yes Patient would benefit from OT for education, treatment and training to promote independence in ADL's, mobility, safety and/or upper extremity function for ADL's. Plan of Care: ADL Retraining, Functional Mobility, Group Exercise/Act as Ind, UE Funct Exercise/Act Treatment Duration: Jul 17, 2023 Frequency: At least 5 of 7 days/Wk (IRF) Estimated Hrs Per Day: 1.5 hours per day Agreement: Yes Rehab Potential: Good Time Start Time: 11:00 Stop Time: 12:00 DATE: Jul 08, 2023 Total Time Billed (hr/min): 60 Billed Treatment Time 1, FA 4 Abby Molina OTR/L Jul 08, 2023 13:54
[2023-07-08] MEDS ORDERED: MTP25TSR PO (14:05)
--- NOTE | 2023-07-08 14:45 | PM&R Progress Note ---
Subjective HPI/CC On Admission Date Seen by Provider: Jul 08, 2023 Time Seen by Provider: 13:30 Subjective/Events-last exam 07/08/2023: No new issues Ready for DC No pain reported 07/07/2023: Patient doing well Set for discharge tomorrow A little bit frightened about going home but she is doing very well 07/06/2023: Much improved ambulation Reviewed meds and labs No falls Pain controlled 07/05/2023: Patient doing well Denies any pain Ambulating around pretty well No falls 07/04/2023: Much improved Pain controlled Spouse of 57 years is at bedside BM+ 07/03/2023: Patient doing well Bowels are moving Pain is controlled Participation is good Reviewed meds and labs 07/02/2023: Patient doing well Reviewed meds and labs Adding iron and B12 to labs for anemia source Pain is controlled Bowels are moving Working with therapy Review of Systems General: Fatigue, Malaise Objective Exam Vital Signs Vital Signs Date Time Temp Pulse Resp B/P (MAP) Pulse Ox O2 Delivery O2 Flow Rate FiO2 07/08/23 09:00 Room Air 07/08/23 08:00 35.5 77 16 108/58 (75) 96 Capillary Refill : General Appearance: WD/WN, Anxious, Chronically ill, Thin HEENT: PERRL/EOMI, Normal ENT Inspection, Pharynx Normal Neck: Full Range of Motion, Normal Inspection, Non Tender, Supple, Carotid Bruit Respiratory: Chest Non Tender, Lungs Clear, Normal Breath Sounds, No Accessory Muscle Use, No Respiratory Distress Cardiovascular: Regular Rate, Rhythm, No Edema, No Gallop, No JVD, No Murmur, Normal Peripheral Pulses Gastrointestinal: Normal Bowel Sounds, No Organomegaly, No Pulsatile Mass, Non Tender, Soft Back: Normal Inspection, No CVA Tenderness, No Vertebral Tenderness Extremity: Normal Capillary Refill, Normal Inspection, Normal Range of Motion, Non Tender, No Calf Tenderness, No Pedal Edema Neurologic/Psychiatric: Alert, Oriented x3, Normal Mood/Affect, milker machine II-XII Norm as Tested, Abnormal Gait, Motor Weakness (bilateral legs) Skin: Normal Color, Warm/Dry Lymphatic: No Adenopathy Results/Procedures Lab Patient resulted labs reviewed. FIM Transfers Therapy Code Descriptions/Definitions Functional [place] Measure: 0=Not Assessed/NA 4=Minimal Assistance 1=Total Assistance 5=Supervision or Setup 2=Maximal Assistance 6=Modified [place] 3=Moderate Assistance 7=Complete IndependenceSCALE: Activities may be completed with or without assistive devices. 6-Eicvspebla-podgzfa completes the activity by him/herself with no assistance from a helper. 5-Set-up or Clean-up Assistance-helper sets up or cleans up; patient completes activity. [place] assists only prior to or following the activity. 4-Supervision or Touching Assistance-helper provides verbal cues and/or touching/steadying and/or contact guard assistance as patient completes activity. Assistance may be provided throughout the activity or intermittently. 3-Partial/Moderate Assistance-helper does LESS THAN HALF the effort. [place] lifts, holds or supports trunk or limbs, but provides less than half the effort. 2-Substantial/Maximal Assistance-helper does MORE THAN HALF the effort. [place] lifts or holds trunk or limbs and provides more than half the effort. 6-Ufskbpkxi-panovb does ALL the effort. Patient does none of the effort to complete the activity. Or, the assistance of 2 or more helpers is required for the patient to complete the activity. If activity was not attempted, code reason: 7-Patient Refused. 9-Not Applicable-not attempted and the patient did not perform the activity before the current illness, exacerbation or injury. 10-Not Attempted due to Environmental Limitations-(lack of equipment, weather restraints, etc.). 88-Not Attempted due to Medical Conditions or Safety Concerns. Roll Left to Right (QC): 6 Sit to Lying (QC): 6 Sit to Stand (QC): 6 Chair/Bif-dx-Fpvyp Xfer(QC): 6 Car Transfer (QC): 6 Gait Training Does the Patient Walk?: Yes Distance: 300', 150' Walk 10 feet (QC): 6 Walk 50 ft with 2 Turns(QC): 6 Walk 150 ft (QC): 6 Walking 10ft/uneven surface-QC: 4 (SBA for unsteadying and safety) Gait Assistive Device: FWW Wheelchair Training Does the Pt Use a Wheelchair?: No Wheel 50 ft with 2 turns (QC): 9 Wheel 150 ft (QC): 9 Stair Training Stair Training: Handrails/: 2 handrails #of Steps: 12 1 Step (curb) (QC): 6 4 Steps (QC): 6 12 Steps (QC): 4 (SBA for steadying and safety) Stairs: Pattern: Step to Balance Picking up an Object (QC): 6 ADL-Treatment Eating (QC): 6 Oral Hygiene (QC): 6 Bathing Location: L Arm, R Arm, L Upper Leg, R Upper Leg, L Lower Leg (including foot), R Lower Leg (including foot), Chest, Abdomen, Buttocks, Perineal Area Shower/Bathe Self (QC): 6 (Pt. able to bathe all areas while sitting 95% of the time on shower bench using HH shower and grabbars. Stands to clean buttocks and anita area using grabbars to stabilize.) Upper Body Dressing (QC): 6 (Pt. able to don/doff UB clothing by self. ) Lower Body Dressing (QC): 6 (Pt. able to don/doff brief/pants using dressing stick and senior mobile web developer by self using FWW and grabbars to stabilize.) On/Off Footwear (QC): 6 Toileting Hygiene (QC): 6 (Pt. able to complete clothing manipulation using FWW and grabbars and cleanses all areas by self.) Toilet Transfer (QC): 6 (Pt. able to complete toilet transfers using FWW and grabbars. ) Assessment/Plan Assessment and Plan Assess & Plan/Chief Complaint Assessment: Bilateral hip fractures following a fall with osteoporosis GERD Osteoporosis HTN HLP Plan: PT OT Pain control BM regimen Monitor labs 07/02/2023: Await iron and B12 results Continue aggressive rehab 07/03/2023: Continue pain medication Fall risk Aggressive rehab 07/04/2023: Pain control BM regimen 07/05/2023: Supportive care Monitor closely 07/06/2023: Monitor pain Continue ambulation 07/07/2023: Therapy to work on confidence Supportive care Discharge home 07/07/2023: Monitor closely DC (1) Bilateral hip fractures JOE ALVAREZ DO Jul 08, 2023 14:45
--- NOTE | 2023-07-08 16:29 | Therapy Team Discharge Summary ---
Therapy Discharge Summary Discharge Recommendations Date of Discharge Physical Therapy Patient admitted to ARU on 07/01/23 for diagnosis of ORIF of hip. At the time of D/C she was (I) with bed mobility and transfers. She was able to walk 150' (I) /c FWW. She was SBA on uneven surfaces with the FWW. She was able to negotiate a curb /c FWW (I) and 4 steps /c (B) rails (I), but needed steadying assistance due to fatigue with 12 steps. She achieved a Elderly Mobility Scale score of 14/20 at the time of D/C. Roll Left to Right (QC): 6 Sit to Lying (QC): 6 Lying to Sitting/Side of Bed(Q: 6 Sit to Stand (QC): 6 Chair/Otk-ui-Mzhia Xfer(QC): 6 Toilet Transfer (QC): 6 Car Transfer (QC): 6 Does the Patient Walk: Yes Mode of Locomotion: Walk Anticipated Mode of Locomotion: Walk Walk 10 feet (QC): 6 Walk 50 ft with 2 Turns(QC): 6 Walk 150 ft (QC): 6 Walking 10ft on uneven surface: 4 (SBA for safety) Distance: 200' Gait Assistive Device: FWW Does the Pt Use a Wheelchair: No Wheel 50 ft with 2 turns (QC): 9 Wheel 150 ft (QC): 9 #of Steps: 12 1 Step (curb) (QC): 6 4 Steps (QC): 6 12 Steps (QC): 4 (CGA for steadying and safety) Balance Sitting Static: Normal Balance Sitting Dynamic: Fair Balance-Standing Static: Good Picking up an Object (QC): 6 Occupational Therapy Decreased Activ Tolerance, Decreased Safety Aware, Decreased UE Strength, Impaired Coordination, Impaired Funct Balance, Impaired I ADL's, Impaired Self- Care Skills Eating (QC): 6 Oral Hygiene (QC): 6 Shower/Bathe Self (QC): 6 (Pt. able to bathe all areas while sitting 95% of the time on shower bench using HH shower and grabbars. Stands to clean buttocks and anita area using grabbars to stabilize.) Upper Body Dressing (QC): 6 (Pt. able to don/doff UB clothing by self. ) Lower Body Dressing (QC): 6 (Pt. able to don/doff brief/pants using dressing stick and railroad crossing protection maintainer by self using FWW and grabbars to stabilize.) On/Off Footwear (QC): 6 Toileting Hygiene (QC): 6 (Pt. able to complete clothing manipulation using FWW and grabbars and cleanses all areas by self.) PT Mcc Goals Panama Hat Smearer Goals PT Panama Hat Smearer Goals Time Frame: Jul 15, 2023 Roll Left to Right (QC): 6 Sit to Lying (QC): 6 Lying-Sitting on Side/Bed(QC): 6 Sit to Stand (QC): 6 Chair/Vub-cr-Afiep Xfer(QC): 6 (/c FWW) Toilet/Commode Transfer (QC): 6 (/c FWW) Car Transfer (QC): 6 (/c FWW) Does the Patient Walk: Yes Walk 10 feet (QC): 6 (/c FWW) Walk 10ft-Uneven Surface(QC): 6 (/c FWW) Walk 50ft with 2 Turns (QC): 6 (/c FWW) Walk 150 ft (QC): 6 (/c FWW) Does the Pt use WC or Scooter?: No Wheel 50 feet with 2 turns (QC: 9 Wheel 150 feet: 9 1 Step (curb) (QC): 6 (/c FWW) 4 Steps (QC): 6 (/c rails) 12 Steps (QC): 6 (/c rails) Picking up an Object (QC): 6 (/c railroad crossing protection maintainer) OT Mcc Goals Panama Hat Smearer Goals Time Frame: Jul 17, 2023 Acute change in mental status: 0 Inattention: 0 Disorganized thinkin Altered level of consciousness: 0 Eating (QC): 6 Oral Hygiene (QC): 6 Toileting Hygiene (QC): 6 Shower/Bathe Self (QC): 6 Upper Body Dressing (QC): 6 Lower Body Dressing (QC): 6 On/Off Footwear (QC): 6 Additional Goals: 1-Demonstrate ADL Tasks, 2-Verbalize Understanding, 3-Impro veStrength/Chris 1=Demonstrate adherence to instructed precautions during ADL tasks. 2=Patient will verbalize/demonstrate understanding of assistive devices/modifications for ADL. 3=Patient will improve strength/tolerance for activity to enable patient to perform ADL's. Natividad Child PT Jul 08, 2023 16:29
[2023-07-08 19:51] VITALS: BP 108/61
[2023-07-08] MEDS: ACETAMINOPHEN 325 MG TABLET PO PRN (21:23)
[2023-07-08] MEDS: MELATONIN 3 MG TABLET PO PRN (21:23)
[2023-07-08] MEDS: FLUTICASONE NASAL SPRAY (120 SPRAYS) NS SCH (21:23)
[2023-07-08] MEDS: GABAPENTIN 400 MG CAPSULE PO SCH (21:23)
--- NOTE | 2023-07-09 05:31 | Discharge Summary ---
Diagnosis/Chief Complaint Date of Admission Jul 01, 2023 at 13:08 Date of Discharge Discharge Date: Jul 09, 2023 Discharge Diagnosis Assessment: Bilateral hip fractures following a fall with osteoporosis GERD Osteoporosis HTN HLP Plan: PT OT Pain control BM regimen Monitor labs 07/02/2023: Await iron and B12 results Continue aggressive rehab 07/03/2023: Continue pain medication Fall risk Aggressive rehab 07/04/2023: Pain control BM regimen 07/05/2023: Supportive care Monitor closely 07/06/2023: Monitor pain Continue ambulation 07/07/2023: Therapy to work on confidence Supportive care Discharge home 07/07/2023: Monitor closely DC (1) Bilateral hip fractures Discharge Summary Discharge Physical Examination Allergies: Coded Allergies: Cephalexin Monohydrate (Verified Allergy, Mild, GI UPSET/LOOSE STOOLS, 08/31/18) Vitals & I&Os Vital Signs Date Time Temp Pulse Resp B/P (MAP) Pulse Ox O2 Delivery O2 Flow Rate FiO2 07/09/23 10:00 88 98/55 (69) 07/09/23 08:00 36.1 16 97 Room Air General Appearance: Alert, Oriented X3, Cooperative Respiratory: Clear to Auscultation Cardiovascular: Regular Rate Hospital Course Was the Problem List Reviewed?: Yes Uneventful course after she was admitted from [facility] after bilateral hip fractures. She regained back to near baseline as predicted. Home meds restarted and overall she had no issues during ARU stay. Labs (last 24 hrs) Laboratory Tests 07/02/23 05:40: White Blood Count 4.8, Red Blood Count 2.80L, Hemoglobin 8.8L, Hematocrit 27L, Mean Corpuscular Volume 98, Mean Corpuscular Hemoglobin 31, Mean Corpuscular Hemoglobin Concent 32, Red Cell Distribution Width 15.5H, Platelet Count 319, Mean Platelet Volume 9.4, Immature Granulocyte % (Auto) 0, Neutrophils (%) (Auto) 52, Lymphocytes (%) (Auto) 33, Monocytes (%) (Auto) 11, Eosinophils (%) (Auto) 4, Basophils (%) (Auto) 0, Neutrophils # (Auto) 2.5, Lymphocytes # (Auto) 1.6, Monocytes # (Auto) 0.5, Eosinophils # (Auto) 0.2, Basophils # (Auto) 0.0, Immature Granulocyte # (Auto) 0.0, Sodium Level 141, Potassium Level 3.9, Chloride Level 109H, Carbon Dioxide Level 26, Anion Gap 6, Blood Urea Nitrogen 16, Creatinine 0.77, Estimat Glomerular Filtration Rate 78, BUN/Creatinine Ratio 21, Glucose Level 92, Calcium Level 8.7, Corrected Calcium 9.7, Iron Level 57, Total Bilirubin 0.9, Aspartate Amino Transf (AST/SGOT) 12, Alanine Aminotransferase (ALT/SGPT) 11, Alkaline Phosphatase 88, Total Protein 4.7L, Albumin 2.8L, Vitamin B12 Level 367 Pending Labs Laboratory Tests 07/02/23 05:40: White Blood Count 4.8, Red Blood Count 2.80, Hemoglobin 8.8, Hematocrit 27, Mean Corpuscular Volume 98, Mean Corpuscular Hemoglobin 31, Mean Corpuscular Hemoglobin Concent 32, Red Cell Distribution Width 15.5, Platelet Count 319, Mean Platelet Volume 9.4, Immature Granulocyte % (Auto) 0, Neutrophils (%) (Auto) 52, Lymphocytes (%) (Auto) 33, Monocytes (%) (Auto) 11, Eosinophils (%) (Auto) 4, Basophils (%) (Auto) 0, Neutrophils # (Auto) 2.5, Lymphocytes # (Auto) 1.6, Monocytes # (Auto) 0.5, Eosinophils # (Auto) 0.2, Basophils # (Auto) 0.0, Immature Granulocyte # (Auto) 0.0, Sodium Level 141, Potassium Level 3.9, Chloride Level 109, Carbon Dioxide Level 26, Anion Gap 6, Blood Urea Nitrogen 16, Creatinine 0.77, Estimat Glomerular Filtration Rate 78, BUN/Creatinine Ratio 21, Glucose Level 92, Calcium Level 8.7, Corrected Calcium 9.7, Iron Level 57, Total Bilirubin 0.9, Aspartate Amino Transf (AST/SGOT) 12, Alanine Aminotransferase (ALT/SGPT) 11, Alkaline Phosphatase 88, Total Protein 4.7, Albumin 2.8, Vitamin B12 Level 367 Discharge Home Medications: Active Scripts Active Metoprolol Succinate 25 Mg Tab.er.24h 12.5 Mg PO DAILY Reported Pantoprazole Sodium 40 Mg Tablet.dr 40 Mg PO DAILY Gabapentin 400 Mg Capsule 400 Mg PO HS [facility] DISCHARGE STATES "REPLACES 100MG CAPS" Flonase Allergy Relief (Fluticasone Propionate) 50 Mcg/Actuation [place].susp 2 [place] NSEACH HS Cyanocobalamin Injection (Cyanocobalamin) 1,000 Mcg/Ml Inj 1,000 Mcg IM MONTHLY Cetirizine HCl 10 Mg Tablet 10 Mg PO DAILY Caltrate 600 + D Tablet (Calcium Carbonate/Vitamin D3) 600 Mg Calcium-20 Mcg (800 Unit) Tablet 1 Each PO DAILY Atorvastatin Calcium 10 Mg Tablet 10 Mg PO DAILY Aspirin 81 Mg Tab.chew 81 Mg PO DAILY Instructions to patient/family Please see electronic discharge instructions given to patient. Diagnosis/Problems Diagnosis/Problems (1) Bilateral hip fractures JOE ALVAREZ DO Jul 09, 2023 05:31
[2023-07-09 08:00] VITALS: BP 98/54
[2023-07-09] MEDS: ASPIRIN 81 MG CHEWABLE TABLET PO SCH (08:06)
[2023-07-09] MEDS: CALCIUM CARBONATE 600 MG +VITAMIN D TABLET PO SCH (08:06)
[2023-07-09] MEDS: LORATADINE 10 MG TABLET PO SCH (08:07)
[2023-07-09] MEDS: PANTOPRAZOLE 40 MG TABLET PO SCH (08:07)
[2023-07-09] MEDS: DOCUSATE SODIUM 100 MG CAPSULE PO SCH (08:32)
[2023-07-09] MEDS: SENNA W/DOCUSATE TABLET PO SCH (08:32)
[2023-07-09 10:00] VITALS: BP 98/55
[2023-07-09 10:10] VITALS: BP 98/55
--- NOTE | 2023-07-13 10:38 | Therapy Team Discharge Summary ---
Therapy Discharge Summary Discharge Recommendations Date of Discharge Jul 09, 2023 at 10:10 Therapy D/C Recommendations: Occupational Therapy Home Care Physical Therapy Roll Left to Right (QC): 6 Sit to Lying (QC): 6 Lying to Sitting/Side of Bed(Q: 6 Sit to Stand (QC): 6 Chair/Cuw-db-Fbsit Xfer(QC): 6 Toilet Transfer (QC): 5 Car Transfer (QC): 6 Does the Patient Walk: Yes Mode of Locomotion: Walk Anticipated Mode of Locomotion: Walk Walk 10 feet (QC): 6 Walk 50 ft with 2 Turns(QC): 6 Walk 150 ft (QC): 6 Walking 10ft on uneven surface: 4 (SBA for safety) Distance: 200' Gait Assistive Device: FWW Does the Pt Use a Wheelchair: No Wheel 50 ft with 2 turns (QC): 9 Wheel 150 ft (QC): 9 #of Steps: 12 1 Step (curb) (QC): 6 4 Steps (QC): 6 12 Steps (QC): 4 (CGA for steadying and safety) Balance Sitting Static: Normal Balance Sitting Dynamic: Fair Balance-Standing Static: Good Picking up an Object (QC): 6 Occupational Therapy Pt admitted to [facility] s/p b/l hip fxs. At [facility], pt was independent with ADLs and functional mobility, no AD. Upon initial evaluation, pt was independent with eating, required SBA oral care and toileting, partial assistance showering, set up UBD, max A LBD, and total assist footwear. OT Tx focused on increasing BUE strength and activity tolerance, and increasing safety and independence with ADLs and functional mobility. Pt made good progress towards goals, attaining all LTGs at IND level. Pt discharged from facility, d/c from OT. Decreased Activ Tolerance, Decreased Safety Aware, Decreased UE Strength, Impaired Coordination, Impaired Funct Balance, Impaired I ADL's, Impaired Self- Care Skills Eating (QC): 6 Oral Hygiene (QC): 6 Shower/Bathe Self (QC): 6 (Pt. able to bathe all areas while sitting 95% of the time on shower bench using HH shower and grabbars. Stands to clean buttocks and anita area using grabbars to stabilize.) Upper Body Dressing (QC): 6 (Pt. able to don/doff UB clothing by self. ) Lower Body Dressing (QC): 6 (Pt. able to don/doff brief/pants using dressing stick and tiler by self using FWW and grabbars to stabilize.) On/Off Footwear (QC): 6 Toileting Hygiene (QC): 6 (Pt. able to complete clothing manipulation using FWW and grabbars and cleanses all areas by self.) PT Clinical Programmer Goals Clinical Programmer Goals PT Clinical Programmer Goals Time Frame: Jul 15, 2023 Roll Left to Right (QC): 6 Sit to Lying (QC): 6 Lying-Sitting on Side/Bed(QC): 6 Sit to Stand (QC): 6 Chair/Rfe-cs-Hfnyl Xfer(QC): 6 (/c FWW) Toilet/Commode Transfer (QC): 6 (/c FWW) Car Transfer (QC): 6 (/c FWW) Does the Patient Walk: Yes Walk 10 feet (QC): 6 (/c FWW) Walk 10ft-Uneven Surface(QC): 6 (/c FWW) Walk 50ft with 2 Turns (QC): 6 (/c FWW) Walk 150 ft (QC): 6 (/c FWW) Does the Pt use WC or Scooter?: No Wheel 50 feet with 2 turns (QC: 9 Wheel 150 feet: 9 1 Step (curb) (QC): 6 (/c FWW) 4 Steps (QC): 6 (/c rails) 12 Steps (QC): 6 (/c rails) Picking up an Object (QC): 6 (/c tiler) OT Clinical Programmer Goals Clinical Programmer Goals Time Frame: Jul 17, 2023 Acute change in mental status: 0 Inattention: 0 Disorganized thinkin Altered level of consciousness: 0 Eating (QC): 6 Oral Hygiene (QC): 6 Toileting Hygiene (QC): 6 Shower/Bathe Self (QC): 6 Upper Body Dressing (QC): 6 Lower Body Dressing (QC): 6 On/Off Footwear (QC): 6 Additional Goals: 1-Demonstrate ADL Tasks, 2-Verbalize Understanding, 3- ImproveStrength/Chris 1=Demonstrate adherence to instructed precautions during ADL tasks. 2=Patient will verbalize/demonstrate understanding of assistive devices/modifications for ADL. 3=Patient will improve strength/tolerance for activity to enable patient to perform ADL's. THAI MEZA OT Jul 13, 2023 10:38
== END 2023-07-09 10:10 | disposition home health service (06) | DRG 561 ==
PROVIDERS: ADMIT Internal Medicine; ATTEND Internal Medicine
DX: M80.052D Age-related osteoporosis with current pathological fracture, left femur, subsequent encounter for fracture with routine healing (principal); M80.051D Age-related osteoporosis with current pathological fracture, right femur, subsequent encounter for fracture with routine healing; R54 Age-related physical debility; Z91.81 History of falling; R26.81 Unsteadiness on feet; E78.00 Pure hypercholesterolemia, unspecified; I10 Essential (primary) hypertension; K21.9 Gastro-esophageal reflux disease without esophagitis; H54.3 Unqualified visual loss, both eyes; Z88.1 Allergy status to other antibiotic agents; Z79.899 Other long term (current) drug therapy
CPT/HCPCS: 36415; 80053; 82607; 83540; 85025